=== PATIENT | male | born 1945 | race Caucasian/White ===

== ENCOUNTER 2022-02-23 01:34 | Day surgery (SDC) | payer MEDICARE, OTHER, SELFPAY ==
[2022-02-08 12:01] VITALS: BMI 37.1
--- NOTE | 2022-02-22 20:31 | PM.HPGS ---
History of Present Illness History of Present Illness Consent: Risks, benefits, and alternatives have been discussed and questions answered. Patient agrees to proceed with procedure. Chief complaint: hx of colon polyps Narrative: Eduardo Nielsen is a 76 year old male referred for olon cancer screening. He had 4 polyps removed 4 yrs ago. Review of Systems Review of Systems: All systems reviewed & are unremarkable except as noted in HPI and below PMFSH Past Medical History Medical History Dyslipidemia Essential (primary) hypertension History of aortic stenosis History of renal cell carcinoma Mild intermittent asthma without complication NATO (obstructive sleep apnea) Osteoarthritis of both knees Paroxysmal atrial fibrillation Type 2 diabetes mellitus without complications Vitamin D deficiency Surgical History Surgical History History of aortic valve replacement 09/2017 History of hand surgery right hand 4th trigger finger release History of partial nephrectomy 2014 Right History of right cataract surgery 2016 Hx of foot surgery (~2010) Right foot Social History Social History Smoking packs per day: 2 Smoking cigarettes per day: 40.0 Years smoked: 7 Smoking pack-years: 14.00 Smoking status: Former smoker Smoking end date: 06/17/73 Additional smoking assessment comments: 1 pack per week Alcohol intake: current Drinks per week: 3 Alcohol use details: occasionally Substance use: never Substance use type: does not use Living arrangements: with family Additional living arrangements comments: Gender identity (if verbalized by the patient): Male Sexual Orientation (if Verbalized by the Patient): Straight or Heterosexual Spiritual care concerns: No Meds Home Medications and Allergies Home Medications Medication Instructions Recorded Confirmed Type aspirin 81 mg tablet,delayed 81 mg PO DAILY 04/29/19 02/23/22 History release (Aspir-) metoprolol tartrate 25 mg tablet 25 mg PO BID 04/29/19 02/23/22 History losartan 50 mg tablet 50 mg PO DAILY 04/25/20 02/23/22 History albuterol sulfate 90 mcg/actuation 2 puff inhalation QID PRN wheezing 10/27/20 02/23/22 History aerosol inhaler (Ventolin HFA) metformin 500 mg tablet,extended 500 mg PO DAILY #90 tabs 11/26/20 02/23/22 Rx release 24 hr atorvastatin 20 mg tablet 20 mg PO QHS 05/18/21 02/23/22 History budesonide-formoterol HFA 160 2 puff inhalation BID 05/18/21 02/23/22 History mcg-4.5 mcg/actuation aerosol inhaler (Symbicort) Allergies Allergy/AdvReac Type Severity Reaction Status Date / Time No Known Allergies Allergy Verified 02/23/22 06:59 Exam Resp: Auscultation: clear to auscultation bilaterally Cardio: Rate: regular rate Rhythm: regular rhythm GI: GI Palp: Yes Soft to palpation and No Tenderness to palpation present (GI) Assessment and Plan Assessment and plan (1) Colon cancer screening: Code(s): Z12.11 - Encounter for screening for malignant neoplasm of colon Status: Acute Assessment and Plan: Colonoscopy with possible biopsy or polypectomy or cautery or injection of substances.
[2022-02-23 06:44] VITALS: BP 153/74; PULSE 71; RESP 18; TEMP 36.5; O2SAT 97; BMI 37.6
[2022-02-23] MEDS: LACTATED RINGERS 1,000 ML 150 ML IV CONT (07:15)
[2022-02-23] MEDS: AMPICILLIN 2 GM/NS 100 ML 2 GM/100 ML BAG IVPB (07:17)
[2022-02-23 07:18] LABS: Glucose Point of Care 129 mg/dl (65-105)
[2022-02-23] MEDS: GENTAMICIN 80MG/SOD CHL 50 ML 80 MG/50 ML BAG 100 MG IVPB (07:46)
--- NOTE | 2022-02-23 07:47 | WPDANESEPPF ---
Anes - Initial Pre Proc Eval Procedure: Operation Date: 02/23/22 08:00 Proposed Procedures p Screening Colonoscopy - Moi Giron MD Date/Time: 02/23/22 07:47 Surgeon: Moi Giron MD Pre Op Diagnosis: hx of colon polyps Patient Data Age: 76 Gender: M Height: 1.68 m Weight: 105.8 kg Last Vital Signs Temp 97.7 F 02/23/22 06:44 Pulse 71 02/23/22 06:44 Resp 18 02/23/22 06:44 BP 153/74 H 02/23/22 06:44 Pulse Ox 97 02/23/22 06:44 O2 Del Method Room Air 02/23/22 06:44 Allergies Allergy/AdvReac Type Severity Reaction Status Date / Time No Known Allergies Allergy Verified 02/23/22 06:59 Home Medications Medication Instructions Recorded Confirmed Type aspirin 81 mg tablet,delayed 81 mg PO DAILY 04/29/19 02/23/22 History release (Aspir-) metoprolol tartrate 25 mg tablet 25 mg PO BID 04/29/19 02/23/22 History losartan 50 mg tablet 50 mg PO DAILY 04/25/20 02/23/22 History albuterol sulfate 90 mcg/actuation 2 puff inhalation QID PRN wheezing 10/27/20 02/23/22 History aerosol inhaler (Ventolin HFA) metformin 500 mg tablet,extended 500 mg PO DAILY #90 tabs 11/26/20 02/23/22 Rx release 24 hr atorvastatin 20 mg tablet 20 mg PO QHS 05/18/21 02/23/22 History budesonide-formoterol HFA 160 2 puff inhalation BID 05/18/21 02/23/22 History mcg-4.5 mcg/actuation aerosol inhaler (Symbicort) Laboratory Tests 02/23/22 07:07 POC Capillary Glucose 129 mg/dl H mg/dl (65-105) Patient hx anesthesia problems: none Family hx anesthesia problems: none Results Review: All pre-operative results and documents have been reviewed as part of the pre-operative evaluation. [facility] Past Medical History Medical History Dyslipidemia Essential (primary) hypertension History of aortic stenosis History of renal cell carcinoma Mild intermittent asthma without complication NATO (obstructive sleep apnea) Osteoarthritis of both knees Paroxysmal atrial fibrillation Type 2 diabetes mellitus without complications Vitamin D deficiency Surgical History Surgical History History of aortic valve replacement 09/2017 History of hand surgery right hand 4th trigger finger release History of partial nephrectomy 2014 Right History of right cataract surgery 2016 Hx of foot surgery (~2010) Right foot Social History Social History Smoking packs per day: 2 Smoking cigarettes per day: 40.0 Years smoked: 7 Smoking pack-years: 14.00 Smoking status: Former smoker Smoking end date: 06/17/73 Additional smoking assessment comments: 1 pack per week Alcohol intake: current Drinks per week: 3 Alcohol use details: occasionally Substance use: never Substance use type: does not use Living arrangements: with family Additional living arrangements comments: Gender identity (if verbalized by the patient): Male Sexual Orientation (if Verbalized by the Patient): Straight or Heterosexual Spiritual care concerns: No Anes - Eval Final PreProcedure Day of Procedure 02/23/22 07:47 Patient weight: obese Heart: regular rate and rhythm Lungs: clear to auscultation Airway: Mallampati scale class III Neurological: alert and oriented Last oral intake: >/= 8 hours ASA classification: III Emergent: no Anesthetic plan: proceed Anesthesia type and monitoring: general GIVS and standard monitoring Results Review: All pre-operative results and documents have been reviewed as part of the pre-operative evaluation. Informed Consent: The patient's anesthetic plan and its attendant risks and benefits were discussed with the patient/family/POA. Questions were solicited and answers provided to the satisfaction of the patient/family/POA.
[2022-02-23] MEDS: SIMETHICONE ORAL SUSPENSION 20 MG/0.3 ML 30 ML BOTTLE 0.6 ML IRRIGATION (08:13)
[2022-02-23 08:25] VITALS: BP 117/69; PULSE 61; RESP 20
[2022-02-23 08:35] VITALS: BP 152/80; PULSE 57; RESP 20
[2022-02-23 08:45] VITALS: BP 145/89; PULSE 59; RESP 18
== END 2022-02-23 08:50 | disposition home or self-care (01) ==
PROVIDERS: PCP Family Medicine; Visit Provider Internal Medicine Gastroenterology
PROC: 0DJD8ZZ Inspection of Lower Intestinal Tract, Via Natural or Artificial Opening Endoscopic (ICD-10-PCS; CPT 45378; principal; 2022-02-23 08:00)
DX: Z12.11 Encounter for screening for malignant neoplasm of colon (principal); Z86.010 Personal history of colon polyps; K57.30 Diverticulosis of large intestine without perforation or abscess without bleeding; E78.5 Hyperlipidemia, unspecified; I10 Essential (primary) hypertension; I35.0 Nonrheumatic aortic (valve) stenosis; J45.20 Mild intermittent asthma, uncomplicated; I48.0 Paroxysmal atrial fibrillation; E11.9 Type 2 diabetes mellitus without complications; E55.9 Vitamin D deficiency, unspecified; M17.0 Bilateral primary osteoarthritis of knee; G47.33 Obstructive sleep apnea (adult) (pediatric); Z95.2 Presence of prosthetic heart valve; Z85.528 Personal history of other malignant neoplasm of kidney; Z79.82 Long term (current) use of aspirin; Z90.5 Acquired absence of kidney; Z87.891 Personal history of nicotine dependence
CPT/HCPCS: G0105; 82948; J0290; J1580; J2704; J7120

== ENCOUNTER 2022-05-30 10:52 | Outpatient (CLI) | payer MEDICARE, OTHER, SELFPAY ==
[2022-05-30 19:35] LABS: Hemoglobin A1C 6.5 % (<5.7)
[2022-05-30 19:40] LABS: Basophils Percent Auto 0.5 % (0.2-1.2); Eosinophils Absolute Auto 0.2 K/mm3 (0-0.3); Eosinophils Percent Auto 1.9 % (0-4.4); Hematocrit 45.7 % (42.0-52.0); Hemoglobin 14.4 g/dL (14.0-18.0); Immature Granulocyte Absolute 0.02 K/mm3 (0.00-0.031); Immature Granulocyte Percent A 0.3 % (0-0.5); Lymphocytes Absolute Auto 1.99 K/mm3 (0.9-3.2); Lymphocytes Percent Auto 25.5 % (18.3-44.2); Mean Corpuscular HGB Conc 31.5 g/dl (32-36); Mean Corpuscular Hemoglobin 26.6 pg (26-34); Mean Corpuscular Volume 84.3 fl (80-100); Mean Platelet Volume 12.6 fl (7.4-10.4); Monocytes Absolute Auto 0.7 K/mm3 (0.1-0.6); Monocytes Percent Auto 8.6 % (2.6-8.5); Neutrophils Absolute Auto 4.9 K/mm3 (1.3-6.7); Neutrophils Percent Auto 63.2 % (45.5-73.1); Platelet Count Result 157 k/mm3 (150-375); Red Blood Count 5.42 M/mm3 (4.6-6.20); Red Cell Distribution Width 13.6 % (11.5-14.5); White Blood Count 7.8 K/mm3 (4.5-10.0)
[2022-05-30 19:53] LABS: Alanine Aminotransferase 28 U/L (6-50); Albumin Level 4.3 g/dL (3.5-5.1); Alkaline Phosphatase 70 U/L (38-126); Anion Gap 7 mmol/L (8-16); Aspartate Amino Transferase 31 U/L (17-59); Bilirubin,Total 0.8 mg/dL (0.2-1.3); Blood Urea Nitrogen 21 mg/dL (9-20); Calcium 8.5 mg/dL (8.4-10.2); Carbon Dioxide 28 mmol/L (22-30); Chloride 106 mmol/L (98-107); Cholesterol 136 mg/dL (0-200); Estimated Glomerular Filt Rate > 60; Glucose 120 mg/dL (65-110); HDL Direct 45 mg/dL; Potassium 4.1 mmol/L (3.4-5.0); Sodium 141 mmol/L (137-145); Triglycerides 114 mg/dL (<150)
[2022-05-30 20:04] LABS: LDL Cholesterol Direct 57 mg/dL
[2022-05-30 20:07] LABS: Vitamin D 25 Hydroxy 60.1 ng/mL
[2022-05-30 20:15] LABS: Prostate Specific Antigen 2.2 ng/mL (< OR = 4.0)
[2022-05-30 20:40] LABS: Creatinine Urine 192.2 mg/dL
[2022-05-30 20:45] LABS: MALB Creatinine Ratio 5.9 mg/g (0-30); Microalbumin Urine Random 11.3 mg/L (0-16.7)
== END 2022-05-30 10:53 | disposition home or self-care (01) ==
LOC: ANHGOSHLAB 10:54
PROVIDERS: PCP Family Medicine; Visit Provider Family Medicine
DX: E11.9 Type 2 diabetes mellitus without complications (principal); I10 Essential (primary) hypertension; E55.9 Vitamin D deficiency, unspecified; Z12.5 Encounter for screening for malignant neoplasm of prostate; E53.8 Deficiency of other specified B group vitamins; E78.5 Hyperlipidemia, unspecified
CPT/HCPCS: 36415; 80053; 80061; 82043; 82306; 82607; 83036; 84153; 84443; 85025; G0103

== ENCOUNTER 2022-11-28 08:00 | Outpatient (NON) | payer MEDICARE, OTHER, SELFPAY ==
[2022-11-29 18:29] LABS: Alanine Aminotransferase 35 U/L (6-50); Albumin Level 4.4 g/dL (3.5-5.1); Alkaline Phosphatase 56 U/L (38-126); Anion Gap 6 mmol/L (8-16); Aspartate Amino Transferase 39 U/L (17-59); Bilirubin,Total 0.9 mg/dL (0.2-1.3); Blood Urea Nitrogen 27 mg/dL (9-20); Calcium 8.3 mg/dL (8.4-10.2); Carbon Dioxide 30 mmol/L (22-30); Chloride 103 mmol/L (98-107); Estimated Glomerular Filt Rate 59; Glucose 136 mg/dL (65-110); Sodium 139 mmol/L (137-145)
== END 2022-11-28 08:01 | disposition home or self-care (01) ==
LOC: ANHLAB 11-29 15:44
PROVIDERS: PCP Family Medicine; Visit Provider Family Medicine
DX: E11.9 Type 2 diabetes mellitus without complications (principal); I10 Essential (primary) hypertension
CPT/HCPCS: 36415; 80053; 83036

== ENCOUNTER 2023-06-04 10:27 | Outpatient (CLI) | payer MEDICARE, OTHER, SELFPAY ==
[2023-06-04 11:39] LABS: Appearance Urine Clear (Clear); Bilirubin Urine Negative (Negative); Blood Urine Negative (Negative); Color Urine Yellow (Yellow); Glucose Urine UA Negative (Negative); Ketones Urine Negative (Negative); Leukocyte Esterase Ur Negative LEU/UL (Negative); Nitrate Urine Negative (Negative); Protein Urine Negative (Negative); Specific Grav Ur 1.021 (1.001-1.035)
[2023-06-04 11:46] LABS: Basophils Percent Auto 0.6 % (0.2-1.2); Eosinophils Absolute Auto 0.1 K/mm3 (0-0.3); Eosinophils Percent Auto 2.1 % (0-4.4); Hematocrit 46.3 % (42.0-52.0); Hemoglobin 14.6 g/dL (14.0-18.0); Immature Granulocyte Absolute 0.03 K/mm3 (0.00-0.031); Immature Granulocyte Percent A 0.4 % (0-0.5); Lymphocytes Absolute Auto 2.07 K/mm3 (0.9-3.2); Lymphocytes Percent Auto 30.7 % (18.3-44.2); Mean Corpuscular HGB Conc 31.5 g/dl (32-36); Mean Corpuscular Hemoglobin 26.9 pg (26-34); Mean Corpuscular Volume 85.3 fl (80-100); Mean Platelet Volume 12.3 fl (7.4-10.4); Monocytes Absolute Auto 0.6 K/mm3 (0.1-0.6); Monocytes Percent Auto 9.3 % (2.6-8.5); Neutrophils Absolute Auto 3.8 K/mm3 (1.3-6.7); Neutrophils Percent Auto 56.9 % (45.5-73.1); Platelet Count Result 155 k/mm3 (150-375); Red Blood Count 5.43 M/mm3 (4.6-6.20); Red Cell Distribution Width 13.4 % (11.5-14.5); White Blood Count 6.7 K/mm3 (4.5-10.0)
[2023-06-04 11:48] LABS: Alanine Aminotransferase 27 U/L (6-50); Albumin Level 4.1 g/dL (3.5-5.1); Alkaline Phosphatase 68 U/L (38-126); Anion Gap 6 mmol/L (8-16); Aspartate Amino Transferase 34 U/L (17-59); Bilirubin,Total 0.8 mg/dL (0.2-1.3); Blood Urea Nitrogen 21 mg/dL (9-20); Calcium 8.8 mg/dL (8.4-10.2); Carbon Dioxide 28 mmol/L (22-30); Chloride 105 mmol/L (98-107); Cholesterol 151 mg/dL (0-200); Estimated Glomerular Filt Rate > 60; Glucose 144 mg/dL (65-110); HDL Direct 43 mg/dL; Potassium 4.3 mmol/L (3.4-5.0); Sodium 139 mmol/L (137-145); Triglycerides 116 mg/dL (<150)
[2023-06-04 11:50] LABS: Add Urine Microscopic? NO
[2023-06-04 11:59] LABS: LDL Cholesterol Direct 75 mg/dL
[2023-06-04 12:03] LABS: Vitamin D 25 Hydroxy 53.2 ng/mL
[2023-06-04 12:08] LABS: Creatinine Urine 123.4 mg/dL
[2023-06-04 12:13] LABS: Microalbumin Urine Random 17.3 mg/L (0-16.7)
[2023-06-04 12:59] LABS: Hemoglobin A1C 7.5 % (<5.7)
== END 2023-06-04 10:28 | disposition home or self-care (01) ==
LOC: ANHGOSHLAB 10:29
PROVIDERS: PCP Family Medicine; Visit Provider Family Medicine
DX: Z12.5 Encounter for screening for malignant neoplasm of prostate (principal); E78.5 Hyperlipidemia, unspecified; I10 Essential (primary) hypertension; E11.9 Type 2 diabetes mellitus without complications; E53.8 Deficiency of other specified B group vitamins; E55.9 Vitamin D deficiency, unspecified; I48.0 Paroxysmal atrial fibrillation; Z85.528 Personal history of other malignant neoplasm of kidney
CPT/HCPCS: 36415; 80053; 80061; 81003; 82043; 82306; 82607; 83036; 84153; 84443; 85025; G0103

== ENCOUNTER 2023-06-26 07:39 | Outpatient (CLI) | payer MEDICARE, OTHER, SELFPAY ==
--- NOTE | ~2023-06-26 | US_ITS ---
Ultrasound of the Abdominal Aorta INDICATION: Screening for cardiovascular disorder TECHNIQUE: Grayscale, color Doppler, and pulsed Doppler images of the aorta and common iliac arteries were obtained. COMPARISON: None. FINDINGS: Maximum vascular dimensions are as follows: Proximal aorta: 2.8 cm Mid aorta: 2.4 cm Distal aorta: 2.0 cm Right common iliac artery: 1.4 cm Left common iliac artery: 1.3 cm There is no evidence of abdominal aortic aneurysm. IMPRESSION: No evidence for aortic aneurysm. Reviewed, dictated and finalized at location M. [employer]
== END 2023-06-26 07:40 | disposition home or self-care (01) ==
PROVIDERS: PCP Family Medicine; Visit Provider Family Medicine
DX: Z13.6 Encounter for screening for cardiovascular disorders (principal); Z87.891 Personal history of nicotine dependence
CPT/HCPCS: 76706

== ENCOUNTER 2023-10-11 11:08 | Emergency (ER) | payer MEDICARE, OTHER, SELFPAY ==
--- NOTE | ~2023-10-11 | XR_ITS ---
XR hand LT min 3V 10/11/2023 12:09 Indication: Pain and swelling left hand Procedure: 3 views left hand Comparison: 2 views left second finger dated 03/31/2014 Findings: There is moderate polyarticular osteoarthritis. There is a nondisplaced extra-articular fra cture proximal aspect of the fifth proximal phalanx. No foreign bodies. No focal soft tissue abnormal ity. Impression: 1: Nondisplaced extra-articular fracture base of the left fifth proximal phalanx. Reviewed, dictated and finalized at location B. Impression: 1: Nondisplaced extra-articular fracture base of the left fifth proximal phalan x.
[2023-10-11 11:26] VITALS: BP 132/65; PULSE 52; RESP 16; TEMP 36.6; O2SAT 100
--- NOTE | 2023-10-11 12:05 | ED.UPPEXIN ---
HPI - Extremity Injury (Upper) General Chief Complaint: Extremity Injury, Upper Stated Complaint: Left Hand Pain Time Seen by Provider: 10/11/23 12:06 Source: patient Mode of arrival: ambulatory Limitations: no limitations History of Present Illness HPI narrative: 78-year-old male presents with complaint of pain to left hand with swelling for 1 week. Pain to left little finger. Was hit with baseball well appearing. Has been resting, taking Tylenol with no improvement pain and swelling. Range of motion decreased to left little finger due to pain, distal neurovascularly intact. All systems reviewed and negative except as noted above. Related Data Home Medications Medication Instructions Recorded Confirmed aspirin 81 mg tablet,delayed 81 mg PO DAILY 04/29/19 10/11/23 release (Aspir-) albuterol sulfate 90 mcg/actuation 2 puff inhalation QID PRN wheezing 10/27/20 10/11/23 aerosol inhaler (Ventolin HFA) atorvastatin 20 mg tablet 20 mg PO QHS 05/18/21 10/11/23 budesonide-formoterol HFA 160 2 puff inhalation BID 05/18/21 10/11/23 mcg-4.5 mcg/actuation aerosol inhaler (Symbicort) cholecalciferol (vitamin D3) 125 125 mcg PO DAILY 05/30/22 10/11/23 mcg (5,000 unit) capsule metoprolol tartrate 25 mg tablet 12.5 mg PO BID 05/30/22 10/11/23 Allergies Allergy/AdvReac Type Severity Reaction Status Date / Time No Known Allergies Allergy Verified 10/11/23 11:18 Review of Systems Review of Systems: CONSTITUTIONAL: Denies fever, chills, or sweats. EYES: Denies visual changes, redness, or discharge. ENT: Denies rhinorrhea, congestion, sore throat, or otalgia. CARDIOVASCULAR: Denies chest pain, palpitations, or edema. RESPIRATORY: Denies cough or dyspnea. GASTROINTESTINAL: Denies abdominal pain, nausea, vomiting, or diarrhea. GENITOURINARY: Denies dysuria or hematuria. SKIN: Denies rash or itching. MUSCULOSKELETAL: Denies back pain . Reports pain and swelling to left little finger. NEUROLOGIC: Denies headache, numbness, or weakness. PSYCHIATRIC: Denies anxiety or depression. All other systems reviewed are negative, except as documented in HPI. [facility] Past Medical History Medical History Dyslipidemia Essential (primary) hypertension History of aortic stenosis History of renal cell carcinoma (~2013) Mild intermittent asthma without complication NATO (obstructive sleep apnea) Osteoarthritis of both knees Paroxysmal atrial fibrillation Type 2 diabetes mellitus without complications Vitamin D deficiency Surgical History Surgical History History of aortic valve replacement 09/2017 History of hand surgery right hand 4th trigger finger release History of partial nephrectomy 2014 Right History of right cataract surgery 2016 Hx of foot surgery (~2010) Right foot Social History Social History Smoking packs per day: 2 Smoking cigarettes per day: 40.0 Years smoked: 7 Smoking pack-years: 14.00 Smoking status: Former smoker (< 10 pack years) Smoking end date: 06/17/74 Additional smoking assessment comments: 1 pack per week Alcohol intake: current Drinks per week: 3 Alcohol use details: occasionally Substance use: never Substance use type: does not use Lack of Transportation: No Lack of Food: Never True Current Housing: I Have Housing Concerned About Future Housing: No Difficulty Paying Gas/Electric Bills: No Difficulty Paying for Meds: No Currently Unemployed: No Education: Associate Degree Difficulty w/ Childcare or Family Care: No Living arrangements: with family Additional living arrangements comments: Occupation/Education: occupation Gender identity (if verbalized by the patient): Male Sexual Orientation (if Verbalized by the Patient): Straight or Heterosexual Spiritual care c
== END 2023-10-11 12:50 | disposition home or self-care (01) ==
PROVIDERS: Emergency Provider Nurse Practitioner Family; PCP Family Medicine
DX: S62.647A Nondisplaced fracture of proximal phalanx of left little finger, initial encounter for closed fracture (principal); W21.03XA Struck by baseball, initial encounter; E78.5 Hyperlipidemia, unspecified; I10 Essential (primary) hypertension; I35.0 Nonrheumatic aortic (valve) stenosis; J45.909 Unspecified asthma, uncomplicated; M17.0 Bilateral primary osteoarthritis of knee; I48.0 Paroxysmal atrial fibrillation; E11.9 Type 2 diabetes mellitus without complications; E55.9 Vitamin D deficiency, unspecified; Z95.2 Presence of prosthetic heart valve; Z85.528 Personal history of other malignant neoplasm of kidney; Z90.5 Acquired absence of kidney; Z79.82 Long term (current) use of aspirin
CPT/HCPCS: 29130; 73130; 99214; G0463

== ENCOUNTER 2024-02-20 09:42 | Outpatient (CLI) | payer MEDICARE, OTHER, SELFPAY ==
--- NOTE | ~2024-02-20 | XR_ITS ---
Lumbosacral Spine: AP and lateral views Clinical History: Pain Findings: The normal lordotic curve is maintained. The vertebral bodies and posterior elements are i ntact. There are mild degenerative disc changes. There is advanced facet arthropathy throughout the l umbar spine. The sacroiliac joints are normally outlined. Impression: Extensive, advanced facet arthropathy. Reviewed, dictated and finalized at location . Impression: Extensive, advanced facet arthropathy.
== END 2024-02-20 09:43 | disposition home or self-care (01) ==
PROVIDERS: PCP Family Medicine; Visit Provider Family Medicine
DX: M47.896 Other spondylosis, lumbar region (principal)
CPT/HCPCS: 72100

== ENCOUNTER 2024-04-06 15:36 | Emergency (ER) | payer MEDICARE, OTHER, SELFPAY ==
[2024-04-06 15:53] VITALS: BP 128/64; PULSE 61; RESP 18; TEMP 36.7; O2SAT 99
--- NOTE | 2024-04-06 16:40 | ED.UPPEXIN ---
HPI - Extremity Injury (Upper) General Chief Complaint: Wound/Laceration Stated Complaint: Left Hand Fingers Irritation Time Seen by Provider: 04/06/24 16:40 Source: patient and RN notes reviewed Mode of arrival: ambulatory Limitations: no limitations History of Present Illness HPI narrative: 78-year-old male presents with concern for injury to his left hand. 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 He reports a cut to the dorsal aspect of the 2nd digit and the palmar aspect of the 3rd digit. Reports he bandage the wounds in finished his job. Reports this happened about 4 hours ago. He is not up-to-date on his tetanus shot complaint: injury to: left and hand Related Data Home Medications Medication Instructions Recorded Confirmed aspirin 81 mg tablet,delayed 81 mg PO DAILY 04/29/19 04/06/24 release (Aspir-) albuterol sulfate 90 mcg/actuation 2 puff inhalation QID PRN wheezing 10/27/20 04/06/24 aerosol inhaler (Ventolin HFA) budesonide-formoterol HFA 160 2 puff inhalation BID 05/18/21 04/06/24 mcg-4.5 mcg/actuation aerosol inhaler (Symbicort) metoprolol tartrate 25 mg tablet 12.5 mg PO BID 05/30/22 04/06/24 atorvastatin 40 mg tablet 20 mg PO QHS 02/20/24 04/06/24 cholecalciferol (vitamin D3) 50 100 mcg PO DAILY 02/20/24 04/06/24 mcg (2,000 unit) tablet loratadine 10 mg tablet (Claritin) 10 mg PO DAILY PRN Allergy Symptoms 02/20/24 04/06/24 metformin 500 mg tablet,extended 500 mg PO BID 02/20/24 04/06/24 release 24 hr Allergies Allergy/AdvReac Type Severity Reaction Status Date / Time No Known Allergies Allergy Verified 02/20/24 09:02 Review of Systems Review of Systems: CONSTITUTIONAL: Denies malaise, chills, sweats, or fever. SKIN: Reports lacerations to the 2nd and 3rd digits the left hand MUSCULOSKELETAL: Denies muscle skeletal pain NEUROLOGIC: Denies numbness, weakness All systems reviewed & are unremarkable except as noted in HPI and below PMFSH Past Medical History Medical History Dyslipidemia Environmental allergies Essential (primary) hypertension Fracture of proximal phalanx of left little finger (~09/2023) History of aortic stenosis History of renal cell carcinoma (~2013) Mild intermittent asthma without complication NATO (obstructive sleep apnea) Osteoarthritis of both knees Paroxysmal atrial fibrillation Type 2 diabetes mellitus without complications Vitamin D deficiency Surgical History Surgical History History of aortic valve replacement 09/2017 History of hand surgery right hand 4th trigger finger release History of partial nephrectomy 2014 Right History of right cataract surgery 2016 Hx of foot surgery (~2010) Right foot Social History Social History Smoking packs per day: 2 Smoking cigarettes per day: 40.0 Years smoked: 7 Smoking pack-years: 14.00 Smoking status: Former smoker (< 10 pack years) Smoking end date: 06/17/74 Additional smoking assessment comments: 1 pack per week Alcohol intake: current Drinks per week: 3 Alcohol use details: occasionally Substance use: never Substance use type: does not use Lack of Transportation: No Lack of Food: Never True Current Housing: I Have Housing Concerned About Future Housing: No Difficulty Paying Gas/Electric Bills: No Difficulty Paying for Meds: No Currently Unemployed: No Education: Associate Degree Difficulty w/ Childcare or Family Care: No Living arrangements: with family Additional living arrangements comments: Occupation/Education: occupation Gender identity (if verbalized by the patient): Male Sexual Orientation (if Verbalized by the Patient): Straight or Heterosexual Spiritual care concerns: No Comments At time of signature, agree with nursing past
[2024-04-06] MEDS: LIDOCAINE HCL 1% LOCAL INJ 2 ML AMPUL INFILTRATE (16:56)
[2024-04-06] MEDS: TETANUS,DIPHTHERIA,AC PERTUSSIS ADULT (0.5 ML) BOOSTRIX IM (16:57)
== END 2024-04-06 17:33 | disposition home or self-care (01) ==
PROVIDERS: Emergency Provider Nurse Practitioner; PCP Family Medicine
DX: S61.211A Laceration without foreign body of left index finger without damage to nail, initial encounter (principal); S61.213A Laceration without foreign body of left middle finger without damage to nail, initial encounter; W31.89XA Contact with other specified machinery, initial encounter; Z23 Encounter for immunization; Z87.891 Personal history of nicotine dependence; E78.5 Hyperlipidemia, unspecified; I10 Essential (primary) hypertension; E11.9 Type 2 diabetes mellitus without complications; Z79.84 Long term (current) use of oral hypoglycemic drugs; I48.0 Paroxysmal atrial fibrillation; E55.9 Vitamin D deficiency, unspecified; M17.0 Bilateral primary osteoarthritis of knee; Z95.2 Presence of prosthetic heart valve; Z85.528 Personal history of other malignant neoplasm of kidney; Z90.5 Acquired absence of kidney; Z79.82 Long term (current) use of aspirin
CPT/HCPCS: 12001; 90471; 90715; 99212; G0463; J2003

== ENCOUNTER 2024-04-20 11:57 | Emergency (ER) | payer MEDICARE, OTHER, SELFPAY ==
[2024-04-20 12:07] VITALS: BP 145/46; PULSE 95; RESP 19; TEMP 36.6; O2SAT 100
--- NOTE | 2024-04-20 12:12 | ED_ITS ---
HPI - Wound/Laceration General Chief Complaint: Wound/Laceration Stated Complaint: Stitches Removal Time Seen by Provider: 04/20/24 12:14 Source: patient, RN notes reviewed and old records reviewed Mode of arrival: ambulatory Limitations: no limitations History of Present Illness HPI narrative: Patient presents requesting suture removal Related Data Home Medications Medication Instructions Recorded Confirmed aspirin 81 mg tablet,delayed 81 mg PO DAILY 04/29/19 04/20/24 release (Aspir-) albuterol sulfate 90 mcg/actuation 2 puff inhalation QID PRN wheezing 10/27/20 04/20/24 aerosol inhaler (Ventolin HFA) budesonide-formoterol HFA 160 2 puff inhalation BID 05/18/21 04/20/24 mcg-4.5 mcg/actuation aerosol inhaler (Symbicort) metoprolol tartrate 25 mg tablet 12.5 mg PO BID 05/30/22 04/20/24 atorvastatin 40 mg tablet 20 mg PO QHS 02/20/24 04/20/24 cholecalciferol (vitamin D3) 50 100 mcg PO DAILY 02/20/24 04/20/24 mcg (2,000 unit) tablet loratadine 10 mg tablet (Claritin) 10 mg PO DAILY PRN Allergy Symptoms 02/20/24 04/20/24 metformin 500 mg tablet,extended 500 mg PO BID 02/20/24 04/20/24 release 24 hr Allergies Allergy/AdvReac Type Severity Reaction Status Date / Time No Known Allergies Allergy Verified 04/20/24 11:59 Review of Systems Review of Systems: All systems reviewed & are unremarkable except as noted in HPI and below Constitutional: Constitutional: Reports no additional constitutional complaints ENT: Reports system reviewed and no additional complaints, except as documented Cardiovascular: Cardiovascular: Reports no additional cardiovascular complaints Respiratory: Respiratory: Reports no additional respiratory complaints Gastrointestinal: Gastrointestinal: Reports no additional gastrointestinal complaints Integumentary/Breasts: Skin/Breast: Reports system reviewed and no additional complaints, except as docu and Reports as per HPI PMFSH Past Medical History Medical History Dyslipidemia Environmental allergies Essential (primary) hypertension Fracture of proximal phalanx of left little finger (~09/2023) History of aortic stenosis History of renal cell carcinoma (~2013) Mild intermittent asthma without complication [employer] (obstructive sleep apnea) Osteoarthritis of both knees Paroxysmal atrial fibrillation Type 2 diabetes mellitus without complications Vitamin D deficiency Surgical History Surgical History History of aortic valve replacement 09/2017 History of hand surgery right hand 4th trigger finger release History of partial nephrectomy 2013 Right History of right cataract surgery 2016 Hx of foot surgery (~2010) Right foot Social History Social History Smoking packs per day: 2 Smoking cigarettes per day: 40.0 Years smoked: 7 Smoking pack-years: 14.00 Smoking status: Former smoker (< 10 pack years) Smoking end date: 06/17/74 Additional smoking assessment comments: 1 pack per week Alcohol intake: current Drinks per week: 3 Alcohol use details: occasionally Substance use: never Substance use type: does not use Lack of Transportation: No Lack of Food: Never True Current Housing: I Have Housing Concerned About Future Housing: No Difficulty Paying Gas/Electric Bills: No Difficulty Paying for Meds: No Currently Unemployed: No Education: Associate Degree Difficulty w/ Childcare or Family Care: No Living arrangements: with family Additional living arrangements comments: Occupation/Education: occupation Gender identity (if verbalized by the patient): Male Sexual Orientation (if Verbalized by the Patient): Straight or Heterosexual Spiritual care concerns: No Comments At the time of my signature, I reviewed and agree with the nursing past medical, surgical, social, and family history. There is no relevant family history pertinent to the patient complaint. Exam Const: General: cooperative, no acute distress, alert and awake Orientation/consciousness: oriented to person, oriented to place and oriented to time HENMT: Head: normal to inspection Resp: Effort & Inspection: normal respiratory effort and able to speak in complete sentences Auscultation: clear to auscultation bilaterally, no crackles, no rales, no rhonchi and no wheezes Cardio: Palpation: normal PMI Rate: regular rate Rhythm: regular rhythm Heart sounds: S1 normal heart sound present and S2 normal heart sound present Skin: Other: Nearly healed laceration with no sign of infection to left 3rd digit, [address] which were easily removed without difficulty Neuro: General: oriented to person, oriented to place and oriented to time Cranial nerves: Yes CN's II-XII intact bilaterally Psych: Appearance: grossly normal Thought process: Normal thought process present Insight: Good insight present (Psych) Judgement: Good judgement present (Psych) Course Course Level of Care: Express Care Visit Vital Signs Vital signs: Vital Signs Temperature 98 F 04/20/24 12:07 Pulse Rate 95 04/20/24 12:07 Respiratory Rate 19 04/20/24 12:07 Blood Pressure 145/46 H 04/20/24 12:07 Pulse Oximetry 100 04/20/24 12:07 Oxygen Delivery Room Air 04/20/24 12:07 Temperature 98 F 04/20/24 12:07 Pulse Rate 95 04/20/24 12:07 Respiratory Rate 19 04/20/24 12:07 Blood Pressure 145/46 H 04/20/24 12:07 Pulse Oximetry 100 04/20/24 12:07 Oxygen Delivery Room Air 04/20/24 12:07 Reviewed Procedures Other Procedure Procedure 1: Other Procedure: Suture removal, 2 sutures removed easily. No sign of infection MDM - Wound/Laceration MDM Narrative Medical decision making narrative: Patient presents for suture removal, sutures removed without incident. No other complaints. Discharge instructions reviewed with patient, as well as provided in writing per nursing staff. The instructions also include specific and strict return/GO TO THE ER as well as f/u information. All questions have been answered, and the patient deny any further questions with discharge and discharge plan. Some parts of this dictation were generated by voice recognition software and may contain typographical and/or grammatical inaccuracies. Differential Diagnosis Differential diagnosis: Likely laceration and abrasion Medical Records Attestation: I reviewed the patient's medical records. Discharge Plan Discharge Clinical Impression: Laceration, Encounter for removal of sutures Patient Disposition: Home, Self-Care Condition: Stable Instructions: Antibiotic Form Additional Instructions: Keep affected area clean and dry until fully healed. Emergency department for any new or worse symptoms Patient Language: Slovenian Prescriptions: No Action albuterol sulfate [Ventolin HFA] 90 mcg/actuation HFA aerosol inhaler 2 puff inhalation QID PRN (Reason: wheezing) budesonide-formoterol [Symbicort] 160-4.5 mcg/actuation HFA aerosol inhaler 2 puff inhalation BID aspirin [Aspir-81] 81 mg tablet,delayed release (DR/EC) 81 mg PO DAILY metoprolol tartrate 25 mg tablet 12.5 mg PO BID losartan-hydrochlorothiazide 50-12.5 mg tablet 1 tablet PO DAILY Qty: 90 0RF cholecalciferol (vitamin D3) 50 mcg (2,000 unit) tablet 100 mcg PO DAILY metformin 500 mg tablet extended release 24 hr 500 mg PO BID atorvastatin 40 mg tablet 20 mg PO QHS loratadine [Claritin] 10 mg tablet 10 mg PO DAILY PRN (Reason: Allergy Symptoms) Follow-up/Referrals: Karla Stephens MD [Primary Care Provider] - Time of Disposition: 12:20
== END 2024-04-20 12:25 | disposition home or self-care (01) ==
PROVIDERS: Emergency Provider Nurse Practitioner Family; PCP Family Medicine
DX: S61.213D Laceration without foreign body of left middle finger without damage to nail, subsequent encounter (principal); X58.XXXD Exposure to other specified factors, subsequent encounter; E78.5 Hyperlipidemia, unspecified; I10 Essential (primary) hypertension; J45.909 Unspecified asthma, uncomplicated; M17.0 Bilateral primary osteoarthritis of knee; I48.91 Unspecified atrial fibrillation; E11.9 Type 2 diabetes mellitus without complications; Z79.84 Long term (current) use of oral hypoglycemic drugs; E55.9 Vitamin D deficiency, unspecified; Z85.528 Personal history of other malignant neoplasm of kidney; Z90.5 Acquired absence of kidney; Z87.891 Personal history of nicotine dependence; Z95.2 Presence of prosthetic heart valve; Z79.82 Long term (current) use of aspirin
CPT/HCPCS: 99211; G0463

== ENCOUNTER 2024-05-12 11:00 | Outpatient (RCR) | payer MEDICARE, OTHER, SELFPAY ==
--- NOTE | 2024-04-06 08:58 | OPREHPOC ---
Outpatient Therapy Plan of Care This is a Multidisciplinary Plan of Care that may contain components documented by all disciplines (PT, OT, and ST.) PT Problem 1 PT Problem #1 Knowledge Deficit PT Goal 1 Goal / Goal Update *indep with HEP * correct body mechanics with supine/sit transfer and lifting from floor Target Visit 8 PT Problem 2 PT Problem #2 Pain PT Goal 1 Goal / Goal Update 1* pain rating at worst of 5/10 Target Visit 8 PT Problem 3 PT Problem #3 Impaired Flexibility PT Goal 1 Goal / Goal Update improve flexibility of hips and trunk, to decrease strain and pull on spine/hips: hamstring length with supine SLR 1* R 65' 2* L 65' piriformis length with supine leg cross midline of body 3* R 4* L anterior hip/quad length with prone knee flexion 5* R 110' 6* L 110' Target Visit 8 PT Problem 4 PT Problem #4 Impaired Strength PT Goal 1 Goal / Goal Update *increase strength of R and L hips and trunk to 4+ /5, to improve support and stability to spine Target Visit 8
--- NOTE | 2024-04-06 08:58 | PTOPEVAL1 ---
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 He reports a history of intermittent back pain, without radicular pain. Self assessment with Oswestry rating of 8% limitation in activity level Lumbar xray reports advanced facet arthropathy. 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 With the evaluation: standing trunk flexion and rotation to L increase pain; he has tightness over both R and L: hamstrings, piriformis and anterior hip/quad muscles, with weakness of trunk. Skilled PT services are indicated for therapeutic exercises to increase trunk and hip strength and flexibility, with heat/ice or manual therapy for pain control and education for body mechanics and HEP. Plan of Care Interventions Hot Pack/Cold Pack,Manual Therapy,Mechanical Traction,Neuro Re-education,Patient Education,Therapeutic Activities,Therapeutic Exercise Other Interventions taping PT Services Indicated Yes Treatment Frequency and 1-2x/wk for 8 visits Duration These treatments will address the objective and functional deficits as defined above. The patient will be advanced safely and appropriately in order for the patient to progress towards his/her prior level of function. Additional exercises will be introduced and as well as a comprehensive home exercise program upon discharge, if needed, ?to ensure carryover of functional gains achieved in the clinic. This treatment plan has been reviewed and agreement upon by the patient.
--- NOTE | 2024-04-06 09:37 | PCPTNOTE ---
pt was 10 minutes late for evaluation appt.
--- NOTE | 2024-04-27 08:35 | PCPTNOTE ---
Patient rescheduled his appointment.
--- NOTE | 2024-05-04 08:48 | PCPTNOTE ---
pt called and canceled today's reeval due to not able to make it. rescheduled the appt.
--- NOTE | 2024-05-12 11:45 | PTOPDC ---
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 Compared to the initial evaluation: pain range from 0-9/10 to 0-3/10; self assessment Oswestry rating from 8% to 14% limitation in activity level increase flexibility of R and L hamstrings and piriformis, continues to have tightness in R and L anterior hip/quad muscles; increase hip and trunk strength; increased awareness of body mechanics and posture; education completed for HEP and body mechanics. The goals were achieved, except anterior hip/quad length. Discharge PT services. He is to continue with his HEP and monitor posture. Plan of Care PT Services Indicated No
== END 2024-05-12 13:24 | disposition home or self-care (01) ==
LOC: ANHPT 11:00
PROVIDERS: PCP Family Medicine; Visit Provider Family Medicine
DX: M54.50 Low back pain, unspecified (principal)
CPT/HCPCS: 97110; 97140; 97161; 97530

== ENCOUNTER 2024-07-08 08:49 | Outpatient (CLI) | payer MEDICARE, OTHER, SELFPAY ==
[2024-07-08 19:32] LABS: Add Urine Microscopic? NO; Appearance Urine Clear (Clear); Basophils Absolute Auto 0.1 K/mm3 (0.0-0.1); Basophils Percent Auto 0.7 % (0.2-1.2); Bilirubin Urine Negative (Negative); Blood Urine Negative (Negative); Color Urine Yellow (Yellow); Eosinophils Absolute Auto 0.2 K/mm3 (0-0.3); Eosinophils Percent Auto 2.4 % (0-4.4); Glucose Urine UA Negative (Negative); Hematocrit 46.1 % (42.0-52.0); Hemoglobin 14.6 g/dL (14.0-18.0); Immature Granulocyte Absolute 0.02 K/mm3 (0.00-0.031); Immature Granulocyte Percent A 0.3 % (0-0.5); Ketones Urine Negative (Negative); Leukocyte Esterase Ur Negative LEU/UL (Negative); Lymphocytes Absolute Auto 2.18 K/mm3 (0.9-3.2); Lymphocytes Percent Auto 30.3 % (18.3-44.2); Mean Corpuscular HGB Conc 31.7 g/dl (32-36); Mean Corpuscular Hemoglobin 27.7 pg (26-34); Mean Corpuscular Volume 87.5 fl (80-100); Mean Platelet Volume 12.5 fl (7.4-10.4); Monocytes Absolute Auto 0.7 K/mm3 (0.1-0.6); Monocytes Percent Auto 9.3 % (2.6-8.5); Neutrophils Absolute Auto 4.1 K/mm3 (1.3-6.7); Nitrate Urine Negative (Negative); Platelet Count Result 170 k/mm3 (150-375); Protein Urine Negative (Negative); Red Blood Count 5.27 M/mm3 (4.6-6.20); Red Cell Distribution Width 13.6 % (11.5-14.5); Specific Grav Ur 1.019 (1.001-1.035); Urobilinogen Urine 0.2 mg/dL (<2.0); White Blood Count 7.2 K/mm3 (4.5-10.0)
[2024-07-08 20:27] LABS: MALB Creatinine Ratio 24.3 mg/g (0-30); Microalbumin Urine Random 23.6 mg/L (0-16.7)
[2024-07-08 21:00] LABS: Vitamin D 25 Hydroxy 63.9 ng/mL
[2024-07-08 21:15] LABS: Hemoglobin A1C 6.7 % (<5.7)
[2024-07-08 21:18] LABS: Alanine Aminotransferase 31 U/L (6-50); Albumin Level 4.2 g/dL (3.5-5.1); Alkaline Phosphatase 56 U/L (38-126); Anion Gap 10 mmol/L (4-12); Aspartate Amino Transferase 35 U/L (17-59); Bilirubin,Total 0.9 mg/dL (0.2-1.3); Blood Urea Nitrogen 25 mg/dL (9-20); Calcium 8.9 mg/dL (8.4-10.2); Carbon Dioxide 27 mmol/L (22-30); Chloride 100 mmol/L (98-107); Cholesterol 136 mg/dL (0-200); Estimated Glomerular Filt Rate > 60; Glucose 122 mg/dL (65-110); HDL Direct 45 mg/dL; Potassium 4.2 mmol/L (3.4-5.0); Sodium 137 mmol/L (137-145); Triglycerides 119 mg/dL (<150)
[2024-07-08 21:30] LABS: LDL Cholesterol Direct 70 mg/dL
[2024-07-08 21:50] LABS: Prostate Specific Antigen 2.4 ng/mL (< OR = 4.0)
--- OUTSIDE RECORDS SUMMARY | 2024-07-09 22:03 | XMS_ITS | Continuity of Care Document ---
Author Name [facility] Organization [facility] Care Team Providers Care Milk Wagon Driver Name Role Phone [facility] Unavailable Unavailable Problems Combined list of problems from Department of [facility] and [facility] facilities. It does not include entries that were removed or entered in error. Problem Status Onset Date Problem Type Date of Resolution Comments Source AF- Atrial Fibrillation ([facility] [id number]) Active Condition [facility] Allergic Rhinitis ([facility] 04740238) Active Condition [facility] Asthma ([facility] 248533984) Active Condition [facility] Bicuspid aortic valve Active Condition [facility] CAD - Coronary Artery Disease ([facility] [id number]) Active Condition [facility] Diabetes mellitus Active Condition [facility] Dupuytren contracture Active Condition [facility] Exposure to potentially hazardous substance ([facility] [id number]) Active Condition Oct 01 Entered By: SILAS HALL Comment: Entered automatically through RANDEE Problem List documentation program [facility] GERD - Gastro-Esophageal Reflux Disease ([facility] [id number]) Active Condition [facility] Hearing Loss ([facility] 90602834) Active Condition [facility] History of colonic polyp Active Condition [facility] History of heart failure Active Condition [facility] HTN - Hypertension ([facility] 55232166) Active Condition [facility] OA - Osteoarthritis ([facility] 370147033) Active Condition [facility] Obesity ([facility] 133625767) Active Condition [facility] Obstructive Sleep Apnea Syndrome ([facility] 91458736) Active Condition [facility] Past history of procedure Active Condition Dec 22, 2020 Entered By: CARLA BRENNAN Comment: 09/05/17 aortic valve replacement (25 mm magna ease bioprosthetic aortic valve) and maze procedureJul 14, 2021 Entered By: CARLA BRENNAN Comment: 1980s left achilles tendon surgeryJul 2020 Entered By: CARLA BRENNAN Comment: 2013 4th right finger tigger releaseJul 2020 Entered By: CARLA BRENNAN Comment: 2012 partial right nephrectomyJul 2020 Entered By: CARLA BRENNAN Comment: 2017 right cataract eye surgery [facility] Prosthetic heart valve in situ Active Condition [facility] Pulmonary hypertension Active Condition [facility] Renal cell carcinoma Active Condition [facility] Diagnosis: ICD-10-CM H90.3 Sensorineural hearing loss, bilateral Active Diagnosis [facility] Diagnosis: ICD-10-CM J45.909 Unspecified asthma, uncomplicated Active Diagnosis [facility] Diagnosis: ICD-10-CM H91.93 Unspecified hearing loss, bilateral Active Diagnosis [facility] Medications Combined list of outpatient medications from Department of Defense and [facility] Affairs facilities.Medications provided include 1) outpatient medications from the last 15 months, and 2) patient-reported medications. Medication Details Route Status Patient Instructions Prescription Expires Prescription Number Last Dispense Date Ordering Provider Order Date Order Qty Source ALBUTEROL SO4 90MCG/ACTUA T (CFC-F) INHL,ORAL,8 .5GM INHALE 2 PUFFS BY ORAL INHALATI ON FOUR TIMES A DAY NEEDED FOR BREATHIN G. SHAKE WELL. RINSE MOUTHPIE CE FREQUENT LY TO PREVENT CLOGGING . USE WITH SPACER FOR BREATHIN G. SHAKE WELL. RINSE MOUTHPIE CE FREQUENT LY TO PREVENT CLOGGING . USE WITH SPACER RESPIR ATORY (INHAL ATION) 01/15/2024 [id number] ME PABLO TTISA 2022 1 [facility] ASPIRIN 81MG TAB,CHEWABL E CHEW AND SWALLOW ONE TABLET BY MOUTH ONCE A DAY FOR CARDIOVA SCULAR DISEASE (TAKE WITH FOOD) ORAL ACTIVE 02/13/2025 [id number] LORE MEZA 2023 90 [facility] ASPIRIN 81MG TAB,EC TAKE ONE TABLET BY MOUTH ONCE A DAY FOR HEART OR CIRCULAT ION. TAKE WITH FOOD. ORAL 01/15/2024 [id number] SHAH,ME TTISA 2022 120 [facility] ATORVASTATI N CA 40MG TAB TAKE ONE-HALF TABLET BY MOUTH EVERY EVENING FOR HIGH CHOLESTE ROL ORAL ACTIVE 02/13/2025 [id number] CARMENCARL LORE Leon C 2023 45 [facility] ATORVASTATI N CA 40MG TAB TAKE ONE-HALF TABLET BY MOUTH EVERY EVENING TO LOWER CHOLESTE ROL ORAL 01/15/2024 [id number] SHAH,ME TTISA 2022 45 [facility] FLUTICASONE 250MCG/SALM ETEROL 50MCG INHL,ORAL,D ISKUS,60 INHALE 1 PUFF BY ORAL INHALATI ON TWICE A DAY FOR BREATHIN G (OPEN DISKUS; CLICK ONLY ONCE; MAY INHALE TWICE TO COMPLETE DOSE; CLOSE WHEN FINISHED ) RINSE MOUTH AND SPIT AFTER EACH USE. RESPIR ATORY (INHAL ATION) 01/15/2024 [id number] 4 SHAH,ME TTISA 2022 3 [facility] HYDROCHLORO THIAZIDE 12.5MG/LOSA RTAN POTASSIUM 50MG TAB TAKE 1 TABLET BY MOUTH EVERY MORNING FOR HIGH BLOOD PRESSURE ORAL 06/14/2024 [id number] PABLO,ME TTISA 2022 90 [facility] METFORMIN HCL 500MG 24HR TAB,SA TAKE TWO TABLETS BY MOUTH ONCE A DAY FOR DIABETES TAKE WITH FOOD. AVOID ALCOHOL. DISCONTI NUE BEFORE GETTING XRAY DYE. ORAL ACTIVE 06/02/2025 [id number] 5 SHAH,ME TTISA 2023 60 [facility] METFORMIN HCL 500MG 24HR TAB,SA TAKE TWO TABLETS BY MOUTH ONCE A DAY FOR DIABETES TAKE WITH FOOD. AVOID ALCOHOL. DISCONTI NUE BEFORE GETTING XRAY DYE. ORAL DISCONT INUED 03/11/2025 [id number] SHAH,ME TTISA 2023 60 [facility] METFORMIN HCL 500MG 24HR TAB,SA TAKE TWO TABLETS BY MOUTH ONCE A DAY FOR DIABETES TAKE WITH FOOD. AVOID ALCOHOL. DISCONTI NUE BEFORE GETTING XRAY DYE. ORAL DISCONT INUED 11/25/2024 [id number] SHAH,ME TTISA 2023 60 [facility] METFORMIN HCL 500MG 24HR TAB,SA TAKE ONE TABLET BY MOUTH ONCE A DAY FOR BLOOD SUGAR CONTROL. TAKE WITH FOOD. AVOID ALCOHOL. DISCONTI NUE BEFORE GETTING XRAY DYE. ORAL DISCONT INUED (EDIT) 01/15/2024 [id number] SHAH,AK TTISA 2022 90 [facility] METOPROLOL TARTRATE 50MG TAB TAKE ONE-HALF TABLET BY MOUTH TWICE A DAY FOR HEART/BL OOD PRESSURE . TAKE WITH OR IMMEDIAT CRISPIN FOLLOWIN G FOOD. ORAL ACTIVE 02/13/2025 [id number] SHAH,AK TTISA 2023 90 [facility] METOPROLOL TARTRATE 50MG TAB TAKE ONE-HALF TABLET BY MOUTH TWICE A DAY FOR HEART/BL OOD PRESSURE . TAKE WITH OR IMMEDIAT CRISPIN FOLLOWIN G FOOD. ORAL DISCONT INUED 01/15/2024 [id number] 4 SHAH,AK TTISA 2022 90 [facility] Allergies, Adverse Reactions, Alerts Combined list of allergies from Department of Defense and Veterans Affairs facilities. It does not include entries that were removed or entered in error. Substance Category Reaction Severity Reaction type Status Date Reported Comments Source POLLEN Propensity to adverse reaction (finding) Dyspnea active 12/28/2020 [facility] Immunizations Combined list of available immunizations from the Department of Defense and Veterans Affairs facilities. Immunization Series Date Given Administered By Site Reaction Lot Number CVX Code Drug Office Manager Receptionist Status Comments Source INFLUENZA, HIGH-DOSE, QUADRIVALENT, PF 1 2022 197 complet ed [facility] TDAP 2021 115 complet ed [facility] ZOSTER RECOMBINANT 2 2021 187 complet ed [facility] INFLUENZA, HIGH-DOSE, QUADRIVALENT, PF 1 2021 197 complet ed [facility] INFLUENZA, UNSPECIFIED FORMULATION 2021 88 complet ed [facility] COVID-19 (MODERNA), MRNA, LNP-S, PF, 100 MCG/0.5ML DOSE OR 50 MCG/0.25ML DOSE 4 2021 NONE 207 complet ed MOD; [id number]; 2 [facility] ZOSTER RECOMBINANT 1 2021 NONE 187 complet ed [facility] PNEUMOCOCCAL CONJUGATE PCV20, POLYSACCHARID E [id number] CONJUGATE, ADJUVANT, PF 1 2021 216 complet ed [facility] COVID-19 (MODERNA), MRNA, LNP-S, PF, 100 MCG OR 50 MCG DOSE 2020 207 complet ed [facility] INFLUENZA, HIGH-DOSE, QUADRIVALENT, PF 1 2020 197 complet ed [facility] INFLUENZA, UNSPECIFIED FORMULATION 2020 88 complet ed [facility] COVID-19 (MODERNA), MRNA, LNP-S, PF, 100 MCG/0.5 ML DOSE 2 2020 207 complet ed [facility] COVID-19 (MODERNA), MRNA, LNP-S, PF, 100 MCG/0.5 ML DOSE 1 2020 207 complet ed [facility] INFLUENZA, UNSPECIFIED FORMULATION 2019 88 complet ed [facility] INFLUENZA, HIGH-DOSE, QUADRIVALENT, PF 1 2019 197 complet ed [facility] INFLUENZA, HIGH-DOSE, TRIVALENT, PF 1 2018 135 complet ed [facility] PNEUMOCOCCAL POLYSACCHARID E PPV23 2018 33 complet ed [facility] INFLUENZA, HIGH-DOSE, TRIVALENT, PF 1 2017 135 complet ed [facility] INFLUENZA, HIGH-DOSE, TRIVALENT, PF 1 2016 135 complet ed [facility] Results Combined list of recent chemistry, hematology and other laboratory results from Department of Defense and Veterans Affairs, ranging from 15 months to all on record, depending upon the facility. Order Name Results Value Reference Range Date Interpretation Specimen Comments Source BASIC METABOLIC PANEL CREATININE [MASS/VOLUME] IN SERUM OR PLASMA 1.30 mg/dL 0.7 - 1.3 01/13 Specimen Type: PLASMA Comment: No hemolysis noted. Ordering Provider: MET ALBERT SHAH Report Released Date/Time: Jan 14, 2024 10:34 AM Reporting Lab: [address] [address] Performing Lab: [id number] [place] [address] BASIC METABOLIC PANEL UREA NITROGEN [MASS/VOLUME] IN SERUM OR PLASMA 21.9 mg/dL 9.0 - 25.0 01/13 Specimen Type: PLASMA Comment: No hemolysis noted. Ordering Provider: MET ALBERT SHAH Report Released Date/Time: Jan 14, 2024 10:34 AM Reporting Lab: [address] [address] Performing Lab: [address] [id number] [place] [address] BASIC METABOLIC PANEL GLUCOSE [MASS/VOLUME] IN SERUM OR PLASMA 131 mg/dL 72 - 99 01/13 H Specimen Type: PLASMA Comment: No hemolysis noted. Ordering Provider: MET ALBERT SHAH Report Released Date/Time: Jan 14, 2024 10:34 AM Reporting Lab: [address] [address] Performing Lab: [address] [place] [address] [facility] BASIC METABOLIC PANEL SODIUM [MOLES/VOLUME ] IN SERUM OR PLASMA 141 meq/L 136 - 145 01/13 Specimen Type: PLASMA Comment: No hemolysis noted. Ordering Provider: MET ALBERT SHAH Report Released Date/Time: Jan 14, 2024 10:34 AM Reporting Lab: [address] [address] Performing Lab: [facility] [address] [place] [phone] [facility] BASIC METABOLIC PANEL POTASSIUM [MOLES/VOLUME ] IN SERUM OR PLASMA 3.8 meq/L 3.5 - 5 01/13 Specimen Type: PLASMA Comment: No hemolysis noted. Ordering Provider: MET ALBERT SHAH Report Released Date/Time: Jan 14, 2024 10:34 AM Reporting Lab: [address] [address] Performing Lab: [address] [address] [facility] BASIC METABOLIC PANEL CHLORIDE [MOLES/VOLUME ] IN SERUM OR PLASMA 106 meq/L 98 - 107 01/13 Specimen Type: PLASMA Comment: No hemolysis noted. Ordering Provider: MET ALBERT SHAH Report Released Date/Time: Jan 14, 2024 10:34 AM Reporting Lab: [address] [address] Performing Lab: [address] [address] [facility] BASIC METABOLIC PANEL CARBON DIOXIDE, TOTAL [MOLES/VOLUME ] IN SERUM OR PLASMA 24 meq/L 22 - 31 01/13 Specimen Type: PLASMA Comment: No hemolysis noted. Ordering Provider: MET ALBERT SHAH Report Released Date/Time: Jan 14, 2024 10:34 AM Reporting Lab: [address] [address] Performing Lab: [address] [place] [address] [facility] BASIC METABOLIC PANEL CALCIUM [MASS/VOLUME] IN SERUM OR PLASMA 9.6 mg/dL 8.4 - 10.4 01/13 Specimen Type: PLASMA Comment: No hemolysis noted. Ordering Provider: MET ALBERT SHAH Report Released Date/Time: Jan 14, 2024 10:34 AM Reporting Lab: [address] [address] Performing Lab: [address] [address] [facility] BASIC METABOLIC PANEL GLOMERULAR FILTRATION RATE/1.73 SQ M.PREDICTED [VOLUME RATE/AREA] IN SERUM, PLASMA OR BLOOD BY CREATININE-BA SED FORMULA (CKD-EPI 2020) 56.9 60 01/13 Specimen Type: PLASMA Comment: No hemolysis noted. Ordering Provider: MET ALBERT SHAH Report Released Date/Time: Jan 14, 2024 10:34 AM Reporting Lab: [address] [address] Performing Lab: [address] [address] [facility] LIPID PANEL (STL) CHOLESTEROL [MASS/VOLUME] IN SERUM OR PLASMA 141 mg/dL 0 - 200 01/13 Specimen Type: PLASMA Comment: No hemolysis noted. Ordering Provider: MET ALBERT SHAH Report Released Date/Time: Jan 14, 2024 10:34 AM Reporting Lab: [address] [address] Performing Lab: [address] [address] [facility] LIPID PANEL (STL) TRIGLYCERIDE [MASS/VOLUME] IN SERUM OR PLASMA 139 mg/dL 0 - 150 01/13 Specimen Type: PLASMA Comment: No hemolysis noted. Ordering Provider: MET ALBERT SHAH Report Released Date/Time: Jan 14, 2024 10:34 AM Reporting Lab: [address] [place] [address] Performing Lab: [facility] [address] [place] [address] [facility] LIPID PANEL (STL) CHOLESTEROL IN LDL [MASS/VOLUME] IN SERUM OR PLASMA BY CALCULATION 66 mg/dL 01/13 Specimen Type: PLASMA Comment: No hemolysis noted. Ordering Provider: MET ALBERT SHAH Report Released Date/Time: Jan 14, 2024 10:34 AM Reporting Lab: [address] [address] Performing Lab: [address] [address] [facility] LIPID PANEL (L) CHOLESTEROL IN HDL [MASS/VOLUME] IN SERUM OR PLASMA 47 mg/dL 40 01/13 Specimen Type: PLASMA Comment: No hemolysis noted. Ordering Provider: MET ALBERT SHAH Report Released Date/Time: Jan 14, 2024 10:34 AM Reporting Lab: [address] [address] Performing Lab: [address] [address] [facility] HGA1C HEMOGLOBIN A1C/HEMOGLOBI N.TOTAL IN BLOOD 6.5 4.0 - 6.0 01/13 H Specimen Type: BLOOD No comment entered. Ordering Provider: MET ALBERT SHAH Report Released Date/Time: Jan 14, 2024 10:34 AM Reporting Lab: [address] [address] Performing Lab: [address] [address] [facility] GLUCOSE,BL OOD-poct (STL) GLUCOSE [MASS/VOLUME] IN BLOOD BY AUTOMATED TEST STRIP 126 mg/dL 72 - 99 01/14 H Specimen Type: BLOOD Comment: Test Performed by: [id number] Meter #: [id number] Ordering Provider: SHAH,MET ALBERT Report Released Date/Time: Jan 14, 2023 04:17 PM Reporting Lab: [facility] [address] [facility] [address] Performing Lab: [facility] [address] [facility] [address] [facility] Vital Signs Combined list of inpatient and outpatient Vital Signs from [facility] and [facility], ranging from 12 months to all on record, depending upon the facility. Vital Sign Value Date Comments Source SYSTOLIC BLOOD PRESSURE 125 01/14/2024 09:55:04 [facility] DIASTOLIC BLOOD PRESSURE 65 01/14/2024 09:55:04 [facility] PULSE OXIMETRY 96 01/14/2024 09:55:04 [facility] WEIGHT 233 01/14/2024 09:55:04 [facility] BMI 39kg/m2 01/14/2024 09:55:04 [facility] PAIN 0 01/14/2024 09:55:04 [facility] HEIGHT 65 01/14/2024 09:55:04 [facility] TEMPERATURE 98 01/14/2024 09:55:04 [facility] PULSE 43 01/14/2024 09:55:04 [facility] RESPIRATION 18 01/14/2024 09:55:04 [facility] Encounters Combined list of: 1) Encounters from Department of [facility] facilities going back up to thelast 18 months. 2) Encounters from the Department of [facility] facilities going back up to 280 months. Location Location Details Encounter Type Encounter Number Reason For Visit Attending Provider ADM Date DC Date Status Disposition Source [facility] Outpatient Encounter [id number] 01/09 [facility] Outpatient Encounter [id number] BAL HELMS 01/11 [facility] OBED Gregg [facility] Outpatient Encounter [id number] 01/14 [facility] OFFICE O/P EST MOD 30-39 MIN [id number] Diagnos is: ICD-10- CM J45.909 Unspeci fied asthma, uncompl icated< br/> SHAH,MET ALBERT 01/14 [facility] HEARING AID CHECK ONE EAR [id number] Diagnos is: ICD-10- CM H90.3 Sensori neural hearing loss, bilater al
SUMAN GARIBAY 05/22 [facility] Outpatient Encounter [id number] 06/04 [facility] Outpatient Encounter [id number] 06/04 [facility] HEARING AID CHECK ONE EAR [id number] Diagnos is: ICD-10- CM H90.3 Sensori neural hearing loss, bilater al
SUMAN GARIBAY 06/19 [facility] Outpatient Encounter [id number] 06/30 [facility] HEARING AID REPAIR/MOD IFYING [id number] Diagnos is: ICD-10- CM H90.3 Sensori neural hearing loss, bilater al
SUMAN GARIBAY 08/07 [facility] SELF-MGMT EDUC & TRAIN 1 [place] [id number] Diagnos is: ICD-10- CM H91.93 Unspeci fied hearing loss, bilater al
DEVEN GARCIA E 10/06 [facility] HEARING AID SUP/ACCESS /DEV [id number] Diagnos is: ICD-10- CM H90.3 Sensori neural hearing loss, bilater al
VEST,FAWN A 11/03 [facility] En[facility] [id number] SAUNDRA PURCELL R 11/24 [facility] OFFICE O/P EST MOD 30 MIN [id number] Diagnos is: ICD-10- CM J45.909 Unspeci fied asthma, uncompl icated< br/> SHAH,MET ALBERT 01/13 [facility] HEARING AID REPAIR/MOD IFYING [id number] Diagnos is: ICD-10- CM H90.3 Sensori neural hearing loss, bilater al
VESTFAWN A 02/02 [facility] Outpatient Encounter [id number] 02/12 [facility] HEARING AID REPAIR/MOD IFYING [id number] Diagnos is: ICD-10- CM H90.3 Sensori neural hearing loss, bilater al
GRZEGORZ MADERA 06/16 [facility] N Social History Combined list of available smoking, tobacco, and other social history from Department of Defense and Veterans Affairs facilities. Social History Type Response Date Comment [facility] e Tobacco smoking status [facility] VA-TOBACCO FORMER USER 01/14/2024 [facility] History of tobacco use VA-TOBACCO QUIT 1 5 YRS OR MORE 01/14/2024 [facility] History of tobacco use VA-TOBACCO FORMER USER 01/11/2023 [facility] History of tobacco use VA-TOBACCO FORMER USER 01/12/2022 [facility] History of tobacco use VA-TOBACCO FORMER USER 12/28/2020 [facility]
--- OUTSIDE RECORDS SUMMARY | 2024-07-09 22:03 | XMS_ITS | Encounter Summary ---
Author Name [facility] Address [address] [place] [id number] Care Team Providers Care Power Machine Operator Name Role Phone LORE PEARSON Primary Care Provider Unavail able Insurance Providers: All historical and current Section Date Range: From patient's date of to the date document was created. This section includes the names of all active insurance providers for the patient. Insurance Provider Type of Coverage Plan Name Start of Policy Coverage End of Policy Coverage Group Number Member ID Insurance Provider's Telephone Number Policy Adair's Name Patient's Relationship to Policy Adair MEDICARE (WNR) MEDICARE (M) PART A Jun 17, 2012 PART A [id number] FURFARO,P ASQUALE PATIENT MEDICARE (WNR) MEDICARE (M) PART B Jun 17, 2012 PART B [id number] FURFARO,P ASQUALE PATIENT [employer] PLAN G MEDIC ARE SUPPL EMENT Dec 15, 2020 PLAN G [id number] [phone] FURFARO,P ASQUALE PATIENT Selected Encounter This section includes the information on record at [place] for the Encounter. Date/Time Encounter Type Encounter Description Reason Provider Source Jan 14, 2024 10:00 AM OFFICE O/P EST MOD 30 MIN PRIMARY CARE/MEDICINE ICD-10-CM J45.909 Unspecified asthma, uncomplicated PRICE SHAH IHCarlos Encounter Template Text not used by [place] Assessments - Encounter Diagnoses This section includes the primary and secondary diagnoses documented for the Encounter. Date/Time Primary/Secondary Diagnosis Diagnosis Name Provider Source Jan 15, 2024 03:01 PM PRIMARY Unspecified asthma, uncomplicated SHAHVANDANA FOY [facility] Jan 15, 2024 03:01 PM SECONDARY Athscl heart disease of [place] coronary artery w/o ang pctrs [facility] Jan 15, 2024 03:01 PM SECONDARY Essential (primary) hypertension [facility] Jan 15, 2024 03:01 PM SECONDARY Gastro-esophageal reflux disease without esophagitis [facility] Jan 15, 2024 03:01 PM SECONDARY Obesity, unspecified SHAH,[facility] Jan 15, 2024 03:01 PM SECONDARY Obstructive sleep apnea (adult) (pediatric) [facility] Jan 15, 2024 03:01 PM SECONDARY Personal history of colonic polyps [facility] Jan 15, 2024 03:01 PM SECONDARY Personal history of other malignant neoplasm of kidney SHAH,[facility] Jan 15, 2024 03:01 PM SECONDARY Type 2 diabetes mellitus without complications [facility] Plan of Treatment: Future Appointments (+ 6 months) and Future Tests (+/- 45 days) The Plan of Treatment section includes future care activities for the patient from all [place] treatmentfacilities. This section includes future appointments and future orders which are active, pending or scheduled. Active, Pending, and Scheduled Orders This section includes a listing of several types of active, pending, and scheduled orders, including clinic medications orders, diagnostic test orders, procedure orders and consult orders; where the start date of the order is 45 days before the date of the Encounter or 45 days after the date of theEncounter. The data comes from all [place] treatment facilities. Test Date/Time Test Type Test Details Facility Name Jan 14, 2024 12:00 AM Laboratory - Chemi stry Order MICRAL/CREAT PROFILE (STL) URINE SP [facility] Lab Results: +/- 30 days of the encounter This section includes the Chemistry and Hematology Lab Results on record with [place] for the patient. Radiology Reports and Pathology Reports are provided separately, in subsequent sections. Lab Results This section contains the Chemistry/Hematology Results that were resulted 30 days before or 30 daysafter the date of the Encounter. Date/Time Source Result Type Result - Unit Interpretation Reference Range Comment Jan 14, 2024 10:52 AM [facility] BASIC METABOLIC PANEL Specimen Type: PLASMA Comment: No hemolysis noted. Ordering Provider: JERSON SHAH SA Report Released Date/Time: Jan 14, 2024 10:34 AM Reporting Lab: [facility] [address] [place] [phone] Performing Lab: [address] [phone] CREATININE 1.30 mg/dL 0.7-1.3 UREA NITROGEN 21.9 mg/dL 9.0-25.0 GLUCOSE 131 mg/dL H 72-99 SODIUM 141 meq/L 136-145 POTASSIUM 3.8 meq/L 3.5-5 CHLORIDE 106 meq/L 98-107 CARBON DIOXIDE 24 meq/L 22-31 CALCIUM 9.6 mg/dL 8.4-10.4 EGFR (CKD-EPI 2020) 56.9 >60 Jan 14, 2024 10:52 AM [facility] LIPID PANEL (STL) Specimen Type: PLASMA Comment: No hemolysis noted. Ordering Provider: JERSON SHAH SA Report Released Date/Time: Jan 14, 2024 10:34 AM Reporting Lab: [facility] [address] [place] [phone] Performing Lab: [address] [phone] CHOLESTEROL 141 mg/dL 0-200 TRIGLYCERIDE 139 mg/dL 0-150 CALCULATED LDL 66 mg/dL HDL(New) 47 mg/dL >40 Jan 14, 2024 10:52 AM [facility] HGA1C Specimen Type: BLOOD No comment entered. Ordering Provider: JERSON SHAH SA Report Released Date/Time: Jan 14, 2024 10:34 AM Reporting Lab: [facility] [address] [facility] [phone] Performing Lab: [facility] [address] [facility] [phone] HGA1C 6.5 H 4.0-6.0 Vital Signs: All taken on the encounter date This section contains inpatient and outpatient Vital Signs collected on the date of the Encounter. Date/Time Temperature Pulse Blood Pressure Respiratory Rate SP02 Pain Height Weight Body Mass Index Source Jan 14, 2024 09:55 AM 98 43 125/65 18 96 0 65 233 39 [facility] Social History: Smoking Status (Most current) and Tobacco Use (All prior to encounter date) This section includes the most current, and the historical, smoking and tobacco- related health factors from the [place] facility where the Encounter took place. Current Smoking Status This section includes the most current smoking, or tobacco-related health factor, from the [place] facility where the Encounter took place. Date/Time Current Smoking Status Comment Facil ity Jan 14, 2024 10:00 AM VA-TOBACCO FORMER USER [facility] Tobacco Use History This section includes a history of the smoking, or tobacco-related health factors, that were collected on or before the date of the Encounter. The data comes from the [place] facility where the Encounter took place. Date/Time Smoking Status/Tobacco Use Comment F acility Jan 14, 2024 10:00 AM [place]-TOBACCO QUIT 15 YRS OR MORE [facility] Encounter Notes: All associated encounter notes This section contains the clinical notes associated to the Encounter. Date/Time Encounter Note(s) Provider Source Jan 17, 2024 09:26 AM PHYSICIAN LETTERS: LOCAL TITLE: TEST RESULT GENERAL LETTER ST STANDARD TITLE: PHYSICIAN LETTERS DATE OF NOTE: JAN 17, 2024@09:26 ENTRY DATE: JAN 17, 2024@09:26:04 AUTHOR: VANDANA SHAH EXP COSIGNER: URGENCY: STATUS: COMPLETED [place] [place] [address] JAN 17, 20[address]PLE [address] [place] [address] [place], [place] [address] Dear Eduardo Whipple, I would like to update you on your recent test results. LIPID PROFILE - High cholesterol and triglycerides (lipids) are risk factors for heart disease. Your cholesterol should fall between 140 and 200, and your triglycerides levels should be less than or equal to 150. HDL is the good cholesterol and should ideally be greater than 40. LDL is the bad cholesterol and optimal levels should be less than 100 (near optimal is between 100 and 129). TRIGLYCERIDE 139 mg/dL 01/14/2024 10:52 CHOLESTEROL 141 mg/dL 01/14/2024 10:52 HDL(New) 47 mg/dL 01/14/2024 10:52 CALCULATED LDL 66 mg/dL 01/14/2024 10:52 These readings are within normal limits. HEMOGLOBIN A1C - Gives us information about your diabetes (sugar or glucose) control over the past 3 months. Your target is to keep your A1C below 7 %. HGA1C 6.5 H % 01/14/2024 10:52 These readings are within normal limits. CHEM 7 - This is important information about the current status of your kidneys, liver, and electrolyte and acid/base balance as well as of your blood sugar and blood proteins. SODIUM 141 mEq/L 01/14/2024 10:52 POTASSIUM 3.8 mEq/L 01/14/2024 10:52 CHLORIDE 106 mEq/L 01/14/2024 10:52 UREA NITROGEN 21.9 mg/dL 01/14/2024 10:52 CREATININE 1.30 mg/dL 01/14/2024 10:52 CALCIUM 9.6 mg/dL 01/14/2024 10:52 CARBON DIOXIDE 24 mEq/L 01/14/2024 10:52 GLUCOSE 131 H mg/dL 01/14/2024 10:52 EGFR (CKD-EPI 2020) 56.9 01/14/2024 10:52 These readings are within normal limits. FUTURE APPOINTMENTS: 01/14/2025 09:30 GIOVANA-ST CLR PACT 5 PCP Sincerely, VANDANA SHAH STAFF PHYSICIAN EDUARDO WHIPPLE [facility] Jan 14, 2024 10:20 AM PRIMARY CARE NOTE: LOCAL TITLE: PRIMARY CARE PROVIDER ESTABLISHED VISIT ST STANDARD TITLE: PRIMARY CARE NOTE DATE OF NOTE: JAN 14, 2024@10:20 ENTRY DATE: JAN 14, 2024@10:20:59 AUTHOR: VANDANA SHAH EXP COSIGNER: URGENCY: STATUS: COMPLETED Patient is a 78 and NOT OR Self Identified Gender - Man Reason for visit:Scheduled follow-up Chief Complaint:f/u History of Present Illness: toe fungus, ongoing for sev yrs med adjustments noted, due for labs NON-[place] PROVIDERS:Dr. Quinn Conroy - cardiologistDrMathew Stephens - pcm Dr. Giron - gastroenterologistDrMathew Rosa - urologist Dr. [place]ct[place] - dentistDrMathew Tian - photo lab specialist Problem List: 1) Past history of procedure 2) Prosthetic heart valve in situ 3) HTN - Hypertension ([facility] [id number]) 4) GERD - Gastro-Esophageal Reflux Disease ([facility] [id number]) 5) AF- Atrial Fibrillation ([facility] 35216569) 6) History of heart failure 7) Obstructive Sleep Apnea Syndrome ([facility] 69496752) 8) CAD - Coronary Artery Disease ([facility] [id number]) 9) Bicuspid aortic valve 10) Pulmonary hypertension 11) Asthma ([facility] [id number]) 12) Renal cell carcinoma 13) Obesity ([facility] [id number]) 14) Allergic Rhinitis ([facility] 89975051) 15) OA - Osteoarthritis ([facility] 295284723) 16) Hearing Loss ([facility] [id number]) 17) History of colonic polyp 18) Diabetes mellitus 19) Dupuytren contracture 20) Exposure to potentially hazardous substance ([facility] [id number]) Medication Review: The essential med list for review which includes the patient's active VA prescriptions and if applicable, remote VA prescriptions, non-VA prescriptions, and discontinued VA prescriptions within the last 90 days and known allergies including local and remote allergies have been reviewed. Allergies:POLLEN Active Outpatient Medications (including Supplies): ALBUTEROL 90MCG (CFC-F) 200D ORAL INHL INHALE 2 PUFFS BY ACTIVE ORAL INHALATION FOUR TIMES A DAY NEEDED FOR BREATHING. SHAKE WELL. RINSE MOUTHPIECE FREQUENTLY TO PREVENT CLOGGING. USE WITH SPACER ASPIRIN 81MG EC TAB TAKE ONE TABLET BY MOUTH ONCE A DAY ACTIVE FOR HEART OR CIRCULATION. TAKE WITH FOOD. ATORVASTATIN CALCIUM 40MG TAB TAKE ONE-HALF TABLET BY ACTIVE MOUTH EVERY EVENING TO LOWER CHOLESTEROL FLUTICAS 250/SALMETEROL 50 INHL DISK 60 INHALE 1 PUFF BY ACTIVE ORAL INHALATION TWICE A DAY FOR BREATHING (OPEN DISKUS; CLICK ONLY ONCE; MAY INHALE TWICE TO COMPLETE DOSE; CLOSE WHEN FINISHED) RINSE MOUTH AND SPIT AFTER EACH USE. HCTZ 12.5MG/LOSARTAN 50MG TAB TAKE 1 TABLET BY MOUTH EVERY ACTIVE MORNING FOR HIGH BLOOD PRESSURE LOSARTAN 100MG TAB TAKE ONE-HALF TABLET BY MOUTH ONCE A ACTIVE DAY TO LOWER BLOOD PRESSURE METFORMIN HCL 500MG 24HR SA TAB TAKE TWO TABLETS BY MOUTH ACTIVE ONCE A DAY FOR DIABETES TAKE WITH FOOD. AVOID ALCOHOL. DISCONTINUE BEFORE GETTING XRAY DYE. METOPROLOL TARTRATE 50MG TAB TAKE ONE-HALF TABLET BY MOUTH ACTIVE TWICE A DAY FOR HEART/BLOOD PRESSURE. TAKE WITH OR IMMEDIATELY FOLLOWING FOOD. Physical Exam VITALS (most recent, as listed in the electronic record): B/P: 125/65 (01/14/2024 09:55) Pulse: 43 (01/14/2024 09:55) Temperature: 98 F [36.7 C] (01/14/2024 09:55) Weight: 233 lb [105.69 kg] (01/14/2024 09:55) Height: 65 in [165.1 cm] (01/14/2024 09:55) BMI: 38.9 Pain: 0 (01/14/2024 09:55) (0-10 scale) General: WD, WN in NAD, pleasant affect Lungs: CTA bilat, no W/R/R Heart: RRR, nl S1/S2, no murmurs, no S3/S4 gallops. Extremities: No edema, pedal pulses intact Assessment/Plan: --Asthma-controlled, cont meds as ordered --Coronary Artery Disease, Atrial Fibrillation and Prosthetic heart valve in situ-09/05/17 aortic valve replacement (25 mm magna ease bioprosthetic aortic valve)-s/p maze procedure, meds as listed, continues to follow with non [place] cardio --GERD-controlled, no meds at present --HTN-encourage bp readings at home to document control, meds as noted --Obstructive Sleep Apnea-cont cpap --Type 2 diabetes-controlled, cont metformin, a1c ordered --History of colonic polyp-planning colonoscopy with non [place] provider --Personal History of other Malignant Neoplasm of Kidney-cont with non [place] provider --obesity-weight loss encouraged --prevention-colon ca screen UTD outside [place], RTC: 1 year CLINICAL REMINDERS COMPLETED /cole/ VANDANA SHAH STAFF PHYSICIAN Signed: 01/15/2024 15:03 VANDANA SHAH [facility] Jan 14, 2024 09:57 AM NURSING NOTE: LOCAL TITLE: V15 PACT FACE TO FACE NOTE STL STANDARD TITLE: NURSING NOTE DATE OF NOTE: JAN 14, 2024@09:57 ENTRY DATE: JAN 14, 2024@09:57:34 AUTHOR: SUPA HELMS COSIGNER: URGENCY: STATUS: COMPLETED Provider Visit: Patient Identifiers : Full Name Date of Reason for visit: Established Follow-Up Mode of Arrival: Ambulatory Allergy Review: POLLEN Allergy list reviewed and remains current. Recent Vital Signs: Temperature: 98 F [36.7 C] (01/14/2024 09:55) Pulse: 43 (01/14/2024 09:55) Respiration: 18 (01/14/2024 09:55) B/P: 125/65 (01/14/2024 09:55) Pain: 0 (01/14/2024 09:55) Wt: 233 lb [105.69 kg] (01/14/2024 09:55) Ht: 65 in [165.1 cm] (01/14/2024 09:55) BMI: 38.9 POX: 96% (01/14/2024 09:55) Blood sugar glucometer reading: N/A Would you like to discuss any personal problem, family problem, alcohol use, drug use, or a mental or emotional illness? No [facility] ([facility]), please select appointment type: Face to face: No-please briefly review benefits and direct [place] to [facility] to get more information and register if interested. Contact provided Primary Care phone number and encouraged to call if any questions or concerns. Review that after hours nurse line ext.[phone] and emergency room are available 07/01 for patient use. Contact verbalized good understanding. Frail/Elderly Screen: ADL Screen - Robison Index of [place] in Activities of Daily Living Bathing: (3 Points) Receives no assistance (gets in and out of tub by self, if tub is usual means of bathing) Dressing: (3 Points) Gets clothes and gets completely dressed without assistance. Toileting: (3 Points) Goes to toilet room , cleans self, and arranges clothes without assistance (may use object for support such as cane, walker, or wheelchair, and may manage own night bedpan or commode, emptying same next morning) Transferring: (3 Points) Moves in and out of bed and in and out of chair without assistance (may be using object for support, such as cane or walker) Continence: (3 Points) Controls urination and bowel movement completely by self Feeding: (3 Points) Feeds self without assistance Total Score: 18 Points 18 = High (patient independent) 6 = Low (patient very dependent) IADL Screen - David Instrumental Activities of Daily Living Scale Ability to use telephone: (1 point) Operates Telephone on own initiative; looks up and dials numbers. Shopping: (1 point) Takes care of all shopping needs independently. Food preparation: (1 point) Plans, prepares, and serves adequate meals independently. Housekeeping: (1 point) Maintains house alone with occasional assistance (heavy work). Laundry: (1 point) Does personal laundry completely. Mode of transportation: (1 point) Travels independently on public transportation or drives own car. Responsibility for own medications: (1 point) Is responsible for taking medications in correct dosages at correct times. Ability to handle finances: (1 point) Manages financial matters independently (budgets, writes checks, pays rent and bills, goes to bank); collects and keeps track of income. Total score: 8 points 8 = High function, independent 0 = Low function, dependent Falls Screen: No falls within the past 12 months. Incontinence Screen: No incontinence. Tobacco Use Screening: The patient is a former tobacco user. The patient quit fifteen or more years ago. Cigarette Pack Year History: The patient previously used cigarettes and quit smoking greater than or equal to 15 years ago. Sexual Orientation: The patient thinks of their sexual orientation as: Straight or Heterosexual Depression Screening: Perform PHQ-2 A PHQ-2 screen was performed. The score was 0 which is a negative screen for depression. Over the past two weeks, how often have you been bothered by the following problems? 1. Little interest or pleasure in doing things Not at all 2. Feeling down, depressed, or hopeless Not at all COVID-19 Immunization: Refused Moderna Monovalent COVID-19 vaccine Immunization: COVID-19 (MODERNA), MRNA, LNP-S, PF, 50 MCG/0.5 ML (AGES 12+ YEARS) Refusal Reason: PATIENT DECISION Patient refuses all immunization(s) in the COVID-19 group Date Documented: 01/14/24 10:00 Refused Pfizer Monovalent COVID-19 vaccine Immunization: COVID-19 (PFIZER), MRNA, LNP-S, PF, LULÚ-SUCROSE, 30 MCG/0.3 ML (AGES 12+ YEARS) Refusal Reason: PATIENT DECISION Patient refuses all immunization(s) in the COVID-19 group Date Documented: 01/14/24 10:01 PAVE Foot Check: A complete foot check was completed at this encounter. VISUAL INSPECTION: Includes inspection for skin breaks, deformity, erythema, trauma, pallor on elevation, dependent rubor, nail deformities, extensive callus and pitting edema. Visual exam results: Normal Comment: normal PEDAL PULSES: Includes palpation of dorsalis and posterior tibial pulses and signs/symptoms of vascular compromise like pain, pallor, parasthesia or paralysis. Present (even if diminished) Comment: present SENSORY CHECK: Includes 10 gram Monofilament (Nunez-Bruno) test of sensation. Intact (Greater than or equal to 80% of sites checked) Abnormal (Less than 80% of sites checked): Intact Comment: intact LOW-RISK: LOW RISK INFORMATION PROVIDED: 1. Advised patient not to walk barefoot. 2. Explained the importance of daily foot checks for changes. 3. Stressed the importance of daily foot hygiene, including bathing and complete drying. The patient verbalized understanding and was offered a detailed handout on diabetic foot care. /cole/ SUPA HELMS Licensed Practical Nurse Signed: 01/14/2024 10:04 SUPA HELMS [facility]
--- OUTSIDE RECORDS SUMMARY | 2024-07-09 22:04 | XMS_ITS | Encounter Summary ---
Author Organization [facility] Address 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 ? [place], [place] ??[id number] ? Patient: ??RUTH WHIPPLE ? : ??1945 ? Procedure Date: ??03/03/2008 ? Accession Date: ??03/03/2008 ? Case No: ??[id number] ? Ordering Dr: ??STAS CHRISTINE ? Case types AW, BW, FW, NW and SH are performed by [facility] ? Ctr, [place], [place] ?SURGICAL PATHOLOGY & NON-GYNECOLOGIC CYTOPATHOLOGY REPORT ? DIAGNOSIS ? LARGE INTESTINE, SIGMOID, BIOPSY: ? - FOCAL HYPERPLASTIC CHANGE. ? Specimen Description: ? Sigmoid colon polyp. ? Operative Procedure: ? Colonoscopy. ? Patient Information/Histo ry/Diagnosis: ? Colon polyp(s). Adenomatous vs. hyperplastic vs. other. ? Gross: ? Received iN a single container labeled ??Ruth Furfaro, sigmoid colon is ? a 0.2 cm piece of pate tissue that is submitted in A1. ? [facility]/PHC 03.04.2008 07:55 am ? Microscopic: ? The slides are labeled [id number], Ruthhoda Whipple. ? The biopsy consists of a single piece of colonic mucosa containing a small ? lymphoid aggregate. There is focal hyperplastic change. No Adenomatous ? epithelium is seen on multiple levels. ? [facility] 03.04.2008 10:45 am ? Staging Form: ? No. ? ELECTRONIC SIGNATURE FOR JACOB MONCADA M.D.- 03/04/08 02:07 ? pm INTERFACE SYSTEM 03/03/2008 1:20 PM CDT us Stas Christine MD PATHOLOGY/CYTOLOGY ORDERABL ES Final Result INTERFACE SYSTEM Refer to clinic/hospital department documented in this encounter Visit Diagnoses Diagnosis Personal history of colonic polyps documented in this encounter
--- OUTSIDE RECORDS SUMMARY | 2024-07-09 22:04 | XMS_ITS | Clinical Summary ---
Author Organization [facility] Address [address] [place] [address]. [address] [address] Care Team Providers Care Sap Basis Name Role Phone Unavailable Primary Care Provider Unavailabl e Social History Tobacco Use Types Packs/Day Years Used Date Smoking Tobacco: Never Assessed Sex and Gender Information Value Date Recorded Sex Assigned at Not on file Legal Sex Male 7:01 PM CDT Gender Identity Not on file Sexual Orientation Not on file Plan of Treatment Health Maintenance Due Date Last Done Comments Hepatitis C 1963 DTaP, Tdap and Td Vaccines ( 1 - Tdap) 1966 Zoster Vaccines (1 of 2) 1997 Pneumococcal Vaccine: 65+ Ye ars (1 of 1 - PCV) 2012 RSV Immunization or 60+ Years (1 - 1-dose 75+ series) 2022 COVID-19 Vaccine ( - 2023-2 5 season) 2024 Influenza Adult (#1) 2024 Meningococcal Vaccine Aged Out No shiva zan eligible based on patient's age to complete this topic RSV Immunizations Under 20 Months Aged Out No longer eligible based on patient's age to complete this topic
--- OUTSIDE RECORDS SUMMARY | 2024-07-09 22:04 | XMS_ITS | Encounter Summary ---
Author Organization [facility] Address [address] [place] [address]. [place], [place] [address] [place] [address] Care Team Providers Care Pathology Secretary Name Role Phone Unavailable Primary Care Provider Unavailabl e Encounter Details Date Type Department Care Team (Late st Contact Info) Description 05/23/2017 Abstract [facility] CONVERSION [address] [place] [address] , Generic Conversion, Social History Tobacco Use Types Packs/Day Years Used Date Smoking Tobacco: Never Assessed Sex and Gender Information Value Date Recorded Sex Assigned at Not on file Legal Sex Male 7:01 PM CDT Gender Identity Not on file Sexual Orientation Not on file documented as of this encounter Plan of Treatment Not on file documented as of this encounter Visit Diagnoses Not on filedocumented in this encounter
--- OUTSIDE RECORDS SUMMARY | 2024-07-09 22:04 | XMS_ITS | Referral Summary ---
Author Organization [facility] Address [address] [place] [address] Care Team Providers Care Special Effects Artist Name Role Phone Maureen Stephens MD Primary Care Provider Source Comments [facility] Affiliates and Associated Physician Practices is amultiple site organization consisting of ambulatory clinics and hospital sitesin [place], [place], [place] and [place]. This disclosure is being madepursuant to the Care Everywhere program and may not contain all information available regarding this patient. Last updated 18.[facility] Allergies Active Allergy Reactions Criticality Noted Date Comments Latex Swelling Low 08/26/2017 After dental procedure which only included x-rays next morning swelling around face and jaw with lips extremely swollen. Medications * Be aware that medications may not be up to date on this document. Alwaysverify current medications with the patient. Medication Sig Dispensed Refills Start Date End Date Status albuterol HFA (PROVENTIL;VENTOL IN;PROAIR) 108 (90 BASE) MCG/ACT inhaler Inhale 2 puffs by mouth every 6 hours as needed Active amiodarone (CORDARONE) 400 MG tablet Take 400 mg by mouth as directed Take 1 tablet twice daily for 3 days. Then take 1 tablet daily. Active aspirin (ASPIRIN) 81 MG chew tablet Take 81 mg by mouth once daily Active atorvastatin (LIPITOR) 20 MG tablet Take 20 mg by mouth once daily For 30 days Active budesonide-formot bekah (SYMBICORT) 160-4.5 MCG/ACT inhaler Inhale 2 puffs by mouth 2 times daily Active docusate sodium (COLACE) 100 MG capsule Take 100 mg by mouth once daily Active enoxaparin (LOVENOX) injection Inject 100 mg subcutaneously every 12 hours Active furosemide (LASIX) 20 MG tablet Take 20 mg by mouth once daily Active metoprolol tartrate (LOPRESSOR) 100 MG tablet Take 100 mg by mouth 2 times daily Active oxyCODONE-acetami nophen (PERCOCET) 5-325 MG tablet Take 1 tablet by mouth every 4 hours as needed for Pain Active polyethylene glycol 3350 (MIRALAX) packet Take 17 g by mouth once daily Active potassium chloride (KLOR-CON M) 10 MEQ tablet Take 10 mEq by mouth once daily 09/13/2017 Active warfarin (COUMADIN) 2.5 MG tablet Take 5 mg by mouth once daily Active metoprolol tartrate (LOPRESSOR) 25 MG tablet Take 25 mg by mouth BID. 60 tablet 3 09/20/2017 Active metoclopramide (REGLAN) 5 MG tablet Take 5 mg by mouth BID PRN. 120 tablet 0 09/20/2017 Active furosemide (LASIX) 20 MG tablet Take 20 mg by mouth QDAY PRN. 09/20/2017 Active amiodarone (CORDARONE) 200 MG tablet Take 200 mg by mouth DAILY. 30 tablet 3 09/21/2017 Active aspirin EC (ECOTRIN) 325 MG tablet Take 650 mg by mouth q8h. 100 tablet 2 09/20/2017 Active aspirin (ASPIRIN) 81 MG tablet Take 81 mg by mouth DAILY. 100 tablet 3 10/21/2017 Active Docusate Sodium (DSS) 100 MG Take 100 mg by mouth DAILY. 60 capsule 0 09/13/2017 Active polyethylene glycol 3350 (MIRALAX) packet Take 17 g by mouth DAILY. 30 packet 0 09/13/2017 Active oxyCODONE-acetami nophen (PERCOCET) 5-325 MG tablet Take 1 tablet by mouth q4h PRN. 30 tablet 0 09/13/2017 Active metoprolol tartrate (LOPRESSOR) 25 MG tablet Take 25 mg by mouth 09/20/2017 Activ e furosemide (LASIX) 20 MG tablet Take 20 mg by mouth 09/20/2017 Activ e aspirin EC (ECOTRIN) 325 MG tablet Take 650 mg by mouth 09/20/2017 Acti ve amiodarone (CORDARONE) 200 MG tablet Take 200 mg by mouth 09/21/2017 Acti ve dilTIAZem SR 24hr (DILACOR XR) 180 MG capsule 08/06/2017 Active XARELTO 20 MG tablet 08/06/2017 Active trandolapril (MAVIK) 4 MG tablet 09/17/2017 Active Active Problems Problem Noted Date Diagnosed Date Presence of prosthetic heart valve 09/20/2017 Overview (09/21/2017): Aortic Valve Replacement with 25mm Magna Ease Bioprosthetic Aortic Valve on 09-05-2017 Other specified postprocedural states 09/20/2017 Personal history of other di seases of the circulatory system 09/20/2017 Noninflammatory pericardial effusion 09/20/2017 Paroxysmal atrial fibrillation 09/20/2017 Overview (09/21/2017): S/P intra operative Maze on 09-05-2017 Acute pericarditis 09/17/2017 Cardiac tamponade 09/17/2017 Encounter for other specified special examinatio ns 09/13/2017 Uncomplicated asthma 09/13/2017 Essential (primary) hypertension 09/13/2017 Gastro-esophageal reflux disease without esophag itis 09/12/2017 Nonrheumatic mitral valve insufficiency 09/13/19 18 Overview (09/21/2017): Normal left ventricular size. Mild concentric left ventricular hypertrophy. There is akinesis of the apex and severe hypokinesis of the distal inferolateral wall with normal contractility in the remaining segments. Can not rule out apical thrombus. Ejection fraction is estimated to be 50 %. - Normal right ventricular and systolic function. - Right Ventricular Size. - Mild aortic root dilatation at level of the sinuses of Valsalva (4.4 cm).. - Calcified trileaflet aortic valve. Mild aortic regurgitation. Severe aortic stenosis with mean gradient of 46 mmHg, and calculated ORQUIDEA of 1.2 cm2. - Normal mitral valve structure and velocities. Mild mitral regurgitation. - Normal LV diastolic function. - Normal tricuspid valve structure and velocities. Trivial tricuspid regurgitation. Inadequate tricuspid regurgitation jet to estimate right ventricular systolic pressure. - Pulmonic valve not well seen. No pulmonary insufficiency or stenosis. - Mild left and right atrial enlargement. Diastolic congestive heart failure 09/12/2017 Overview (09/21/2017): Moderate with moderate/severe CLVH based on ANALISA done intra operatively on 09-05-2017 Social History Tobacco Use Types Packs/Day Years Used Date Smoking Tobacco: Former Cigarettes 1 19 0 09/06/1955 - 09/05/1974 Smokeless Tobacco: Never Alcohol Use Standard Drinks/Week Comments Yes 3 (1 standard drink = 0.6 oz pur e alcohol) Sex and Gender Information Value Date Recorded Sex Assigned at Not on file Gender Identity Not on file Sexual Orientation Not on file Last Filed Vital Signs Vital Sign Reading Time Taken Comments Blood Pressure 120/68 10/02/2017 9:35 AM CDT Pulse 67 10/02/2017 9:35 AM CDT Temperature 36.5 ??C (97.7 ??F) 09/20/2017 12:00 PM C DT Respiratory Rate 17 09/20/2017 1:00 PM CDT Oxygen Saturation 97% 10/02/2017 9:35 AM CDT Inhaled Oxygen Concentration - - Weight 93.9 kg (207 lb) 10/02/2017 9:35 AM CDT Height 167.6 cm (5' 6 ) 10/02/2017 9:35 AM CDT Body Mass Index 33.41 10/02/2017 9:35 AM CDT Plan of Treatment Not on file Procedures Procedure Name Priority Date/Time Associated Diagnosis Comments BASIC METABOLIC PANEL (CALCIUM TOTAL) Routine 09/20/2017 1:44 AM CDT from Last 3 Months or Most Recently Relevant to Health Maintenance Results * (ABNORMAL) BASIC METABOLIC PANEL (CALCIUM TOTAL) (09/20/2017 1:44 AM CDT) BUN 18 7 - 26 mg/dL [facility] Creatinine 1.0 0.6 - 1.2 mg/dL [facility] Sodium 137 136 - 145 mmol/L [facility] Potassium 4.5 3.5 - 4.5 mmol/L [facility] Chloride 104 98 - 107 mmol/L [facility] CO2 23 22 - 29 mmol/L [facility] Glucose 123(H) 70 - 115 mg/dL [facility] Calcium 8.1(L) 8.4 - 10.2 mg/dL [facility] Anion Gap 15 8 - 18 [facility] BUN/Creatinine Ratio 18 7 - 23 [facility] Osmolality Calculated 287 270 - 300 mOsm/kg [facility] eGFR >60 >60 mL/min/1.7 3 m2 [facility] Blood specimen (specimen) BLOOD SPECIMEN / Unknown 09/20/2017 1:44 AM CDT 09/20/2017 1:48 AM CDT Luis Kat MD LAB - CHEMISTRY ZAIDA HERNANDEZ [facility] [address] [phone] from Last 3 Months or Most Recently Relevant to Health Maintenance Advance Directives * Full Code (Latest Code Status on File) Date Activated Date Inactivated Comments 09/20/2017 11:00 AM 09/20/2017 5:11 PM * Full Code Date Activated Date Inactivated Comments 09/20/2017 11:00 AM 09/20/2017 11:00 AM Care Teams Special Effects Artist Relationship Specialty Start Date End Date Maureen Stephens MD [address] [place] [phone] PCP - General 08/27/17
--- OUTSIDE RECORDS SUMMARY | 2024-07-09 22:04 | XMS_ITS | Clinical Summary ---
Author Organization [facility] Address [address] [place] [address] Care Team Providers Care Analytical Tech Name Role Phone Maureen Stephens MD Primary Care Provider Source Comments [facility],non-[facility] Affiliates and Associated Physician Practices is amultiple site organization consisting of ambulatory clinics and hospital sitesin [place], [place], [place] and [place]. This disclosure is being madepursuant to the Care Everywhere program and may not contain all information available regarding this patient. Last updated 18.[facility] Allergies Active Allergy Reactions Criticality Noted Date [...] 10/02/2017 9:35 AM CDT Plan of Treatment Health Maintenance Due Date Last Done Comments MEDICARE AWV ? 12 MONTHS 1945 HEPATITIS C SCREENING 07/06/1965 DTAP/TDAP/TD VACCINES (1 - Tdap) 1966 PNEUMOCOCCAL VACCINE 50+ (1 of 2 - PCV) 1966 ZOSTER VACCINE (1 of 2) 1997 SCREENING FOR DIABETES 09/20/2020 8, 09/19/2017, 09/18/2017, Additional history exists Respiratory Syncytial Virus (RSV) Vaccine Pt: or over 60 yrs (1 - 1-dose 75+ series) 2022 COVID-19 VACCINE ( - season) 2024 INFLUENZA VACCINE (#1) 2024 DEPRESSION SCREENING 06/17/2024 HEPATITIS B VACCINE Aged Out No longe r eligible based on patient's age to complete this topic HIB VACCINE Aged Out No longer eligi ble based on patient's age to complete this topic HPV VACCINE Aged Out No longer eligi ble based on patient's age to complete this topic MENINGOCOCCAL (Group B) VACCINE Aged Out No longer eligible based on patient's age to complete this topic MENINGOCOCCAL VACCINE Aged Out No shiva zan eligible based on patient's age to complete this topic Procedures Procedure Name Priority Date/Time Associated Diagnosis Comments BASIC METABOLIC PANEL (CALCIUM TOTAL) Routine 09/20/2017 1:44 AM CDT from Last 3 Months or Most Recently Relevant to Health Maintenance Results * (ABNORMAL) BASIC METABOLIC PANEL (CALCIUM TOTAL) (09/20/2017 1:44 AM CDT) BUN 18 7 - 26 mg/dL [facility] Creatinine 1.0 0.6 - 1.2 mg/dL [facility] Sodium 137 136 - 145 mmol/L [facility] Potassium 4.5 3.5 - 4.5 mmol/L [facility] Chloride 104 98 - 107 mmol/L [facility] CO2 23 22 - 29 mmol/L [facility] Glucose 123(H) 70 - 115 mg/dL [facility] Calcium 8.1(L) 8.4 - 10.2 mg/dL [facility] Anion Gap 15 8 - 18 [facility] BUN/Creatinine Ratio 18 7 - 23 [facility] Osmolality Calculated 287 270 - 300 mOsm/kg [facility] eGFR >60 >60 mL/min/1.7 3 m2 [facility] Blood specimen (specimen) BLOOD SPECIMEN / Unknown 09/20/2017 1:44 AM CDT 09/20/2017 1:48 AM CDT Luis Kat MD LAB - CHEMISTRY ZAIDA HERNANDEZ [address] [phone] from Last 3 Months or Most Recently Relevant to Health Maintenance Advance Directives * Full Code (Latest Code Status on File) Date Activated Date Inactivated Comments 09/20/2017 11:00 AM 09/20/2017 5:11 PM * Full Code Date Activated Date Inactivated Comments 09/20/2017 11:00 AM 09/20/2017 11:00 AM Care Teams Analytical Tech Relationship Specialty Start Date End Date Maureen Stephens MD [address] [place] [phone] PCP - General 08/27/17
--- OUTSIDE RECORDS SUMMARY | 2024-07-09 22:04 | XMS_ITS | Data Portability ---
Author Organization [place] - [facility] OFFICE Address [address] [place] [id number] Care Team Providers Care Home Health Administrator Name Role Phone JOHNATHAN KELLY Primary Care Provider [phone] Assessment Encounter Date Assessment Date Assessment LastModified by Organization Details LastModified Time 08/13/2023 08/13/2023 Patient Examined by FENG Sifuentes, Also Documentation reviewed and approved by supervising physician les Not available 08/13/2023 11:06:05 09/19/2023 09/19/2023 Patient Examined by FENG Sifuentes, Also Documentation reviewed and approved by supervising physician gilbert Not available 09/18/2023 14:39:01 Plan of Treatment Reminders Order Date Submit Date Provider Last Modified By Organization Details Last Modified Time Details Appointments ESTABLISH ED PATIENT DETAILED 2024 09:00A M Quinn Moya i, MD Not available Not available Not available Lab None recorded. Referral None recorded. Procedures None recorded. Surgeries None recorded. Imaging None recorded. Medication Orders None recorded. Patient TargetsNo targets recorded. Patient Instructions Encounter Date Encounter Id Patient Instructions Last Modified By Organization Details Last Modified Time 08/13/2023 [id number] Exercise advised Low cholesterol diet advised Low sodium diet advised. [email or web address] Not available 08/13/2023 11:12:04 09/19/2023 [id number] Low cholesterol diet advised Low sodium diet advised. eyassin Not available 09/19/2023 11:08:23 Reason for Referral None Reported. Results Created Date Observation Date Name Description Value Unit Range Abnormal Flag Note LastModifiedBy Organization Detail LastModifiedTime 07/09/1907/05/2022 elect kam castaneda am No observ ation record ed. [email or web address] Not Available 2022 14:14:01 08/01/19 23 07/18/2022 US, echoc ardio gram No observ ation record ed. [email or web address] Not Available 2022 14:52:25 08/21/19 24 08/13/2023 elect rocar diogr am No observ ation record ed. [email or web address] Not Available 2023 12:35:45 08/28/19 24 08/20/2023 colby can cardi olite stres s test (PROC ) No observ ation record ed. Not Available 2023 10:16:02 09/10/19 24 09/04/2023 US, echoc ardio gram No observ ation record ed. [facility], [facility] [address] [address], [place], [address], 09/10/2023 12:35:25 10/09/19 24 09/11/2023 US, carot id arter y No observ ation record ed. Not Available 2023 15:26:44 03/18/20 24 03/17/2024 elect rocar diogr am No observ ation record ed. Not Available 2023 09:02:54 Result Notes None recorded. Problems Name Problem SNOMED Code Status Onset Date Resolution Date Notes Provider Name and Address Organization Details Recorded Time Coronary arterios clerosis 69579335 Active 2017 [place], [place] - [facility] 8 13:16:34 Benign essentia l hyperten fatimah 3324702 Active 2017 [place] [facility] 8 13:18:21 Hyperlip idemia 51139435 Active 201708/05/17: TC 139, HDL 35, Tr i121, LDL 81 [place] [facility] 8 21:07:56 Congesti ve heart failure 48988641 Active 2017 [place] [facility] 8 13:18:33 Atrial fibrilla tion 90333751 Completed 201710/24/2017 Joanna [place]cas[place], [place] [facility] 8 21:08:02 Bicuspid aortic valve 31843323 Active 2017 Gage [place], [place] [facility] 8 13:19:58 Aortic valve regurgit ation 33483454 Active 2017 moderate Joanna [place] [facility] 8 21:13:59 Paroxysm al atrial fibrilla tion 808469833 Active 2017 CHADs score of 1 Joanna [place] [facility] 8 21:13:19 Diastoli c dysfunct ion 3450191 Active 2017 moderate, grade 3 Joanna [place] [facility] 8 21:14:17 Pulmonar y hyperten fatimah 64150514 Active 2017 moderate Joanna [place] [facility] 8 21:12:29 Aortic valve stenosis 22876816 Active 2017 moderate Joanna [place] [facility] 8 21:14:55 Obstruct saida sleep apnea syndrome 50100117 Active 2017 Gage T[place] [facility] 8 08:54:35 Pre-surg ele evaluati on Active 2017 Quinn Moya i, MD [address] [place], [address] [place] [address] [facility] 8 11:48:26 Dizzines s 939375868 Active 2018 Joanna [place]cas[place] [facility] 9 16:02:35 Problem Notes None recorded. Procedures Surgical History None recorded. Imaging Results Imaging Date Name Status LastModified by Organization Details LastModified Time 07/05/2022 electrocardiogram completed [email or web address] Informa tion not available 07/09/2022 14:14:01 07/18/2022 US, echocardiogram completed [email or web address] Inform ation not available 01/31/2023 14:52:25 08/20/2023 lexiscan cardiolite stress test (PROC) completed Information not available 08/28/2023 10:16:02 09/04/2023 US, echocardiogram completed [facility], [facility] [address] [facility] [address], [place], [address], 09/10/2023 12:35:25 08/13/2023 electrocardiogram completed [email or web address] Informa tion not available 09/10/2023 12:35:45 09/11/2023 US, carotid artery completed Inform ation not available 10/09/2023 15:26:44 03/17/2024 electrocardiogram completed Informa tion not available 03/18/2024 09:02:54 Procedure Notes None recorded. Medical Equipment None Reported. Allergies No known drug allergies Medications Name Sig Start Date Stop Date Status Note LastModified by Organization Details LastModified Time losartan 50 mg tablet TAKE 1 TABLET BY MOUTH ONCE DAILY 03/14 completed Not Available Not Available Not Available amoxicilli n 500 mg capsule TAKE 4 CAPSULES BY MOUTH 1 HOUR PRIOR TO APPOINTM ENT 09/18 completed Not Available Not Available Not Available atorvastat in 20 mg tablet TAKE 1 TABLET BY MOUTH ONCE DAILY active Not Available Not Available No t Available trandolapr il 4 mg tablet Take 1 tablet every day by oral route for 30 days. 01/09 completed Not Available Not Available Not Available azithromyc in 250 mg tablet TAKE 2 TABLETS BY MOUTH ON DAY 1, AND THEN TAKE 1 TABLET BY MOUTH ONCE A DAY ON DAY 2 THROUGH DAY 5 02/02 completed no longer take 07/05/22 mb Not Available Not Available Not Available aspirin 325 mg tablet Take 1 tablet every day by oral route. 08/30 completed pt not taking 08/30/20 Not Available Not Available Not Available metoprolol tartrate 100 mg tablet 10/29 completed Not Available Not Available Not Available flurbiprof en 0.03 % eye drops INSTILL 1 DROP INTO THE SURGICAL EYE THREE TIMES DAILY BEGINNIN G 2 DAYS PRIOR TO SURGERY, CONTINUI NG FOR 2 WEEKS AFTER 03/17 completed Not Available Not Available Not Available warfarin 2.5 mg tablet 10/28 completed Not Available Not Available Not Available ciprofloxa oli 500 mg tablet 08/05 completed Not Available Not Available Not Available oxycodone- acetaminop hen 5 mg-325 mg tablet 01/09 completed Not Available Not Available Not Available prednisolo ne acetate 1 % eye drops,susp ension INSTILL 1 DROP TO THE AFFECTED EYE(S) THREE TIMES DAILY AND CONTINUE FOR 3 WEEKS 03/17 completed Not Available Not Available Not Available amiodarone 400 mg tablet Take 0.5 tablets every day by oral route for 27 days. 01/09 completed Not Available Not Available Not Available ciprofloxa oli 0.3 % eye drops INSTILL 1 DROP INTO THE SURGICAL EYE THREE TIMES DAILY BEGINNIN G 2 DAYS PRIOR TO SURGERY, CONTINUI NG FOR 1 WEEK AFTER 03/17 completed Not Available Not Available Not Available pantoprazo le 40 mg tablet,del ayed release 01/09 completed Not Available Not Available Not Available aspirin 81 mg tablet Take 1 tablet every day by oral route. 09/17 completed Not Available Not Available Not Available furosemide 20 mg tablet 10/28 completed Not Available Not Available Not Available methylpred nisolone 4 mg tablets in a dose pack TAKE BY MOUTH DIRECTED ON INSIDE OF PACKAGE 03/17 completed Not Available Not Available Not Available losartan 50 mg-hydroch lorothiazi de 12.5 mg tablet TAKE 1 TABLET BY MOUTH ONCE DAILY active Not Available Not Available No t Available metformin ER 500 mg tablet,ext ended release 24 hr TAKE 2 TABLETS BY MOUTH ONCE DAILY active Not Available Not Available No t Available diltiazem ER (XR/XT) 180 mg capsule,ex tended release 24 hr, controlled Take 1 capsule every day by oral route for 30 days. 10/28 completed Not Available Not Available Not Available Ventolin HFA 90 mcg/actuat ion aerosol inhaler INHALE 2 PUFFS BY MOUTH 4 TIMES DAILY NEEDED active Not Available Not Available No t Available enoxaparin 100 mg/mL subcutaneo us syringe 10/28 completed Not Available Not Available Not Available potassium chloride ER 10 mEq tablet,ext ended release(pa rt/cryst) 10/28 completed Not Available Not Available Not Available metoprolol tartrate 25 mg tablet TAKE 1 TABLET BY MOUTH TWICE DAILY active Not Available Not Available No t Available Lipitor 20 mg 1 @bedtime 03/03 completed Not Available Not Available Not Available Symbicort 160 mcg-4.5 mcg/actuat ion HFA aerosol inhaler INHALE 2 PUFFS BY MOUTH TWICE DAILY 03/17 completed Not Available Not Available Not Available peg 3350 240 gram-elect rolytes 22.72 gram-6.72 g-5.84 g powdr for soln 08/05 completed Not Available Not Available Not Available Vitamin D 2,000 unit capsule Take 1 capsule every day by oral route in the morning. 09/17 completed Not Available Not Available Not Available Xarelto 20 mg tablet Take 1 tablet every day by oral route for 30 days. 10/28 completed Not Available Not Available Not Available Jardiance 10 mg tablet Take 1 tablet every day by oral route. 2021 active Not Available Not Available Not Avai lable Adult Aspirin Regimen 81 mg tablet,del ayed release Take 1 tablet every day by oral route. active Not Available Not Available No t Available metoprolol succinate ER 25 mg capsule sprinkle, ext. release 24 hr Take 1 capsule twice a day by oral route. 11/18 completed Not Available Not Available Not Available Wixela Inhub 100 mcg-50 mcg/dose powder for inhalation Inhale 1 puff twice a day by inhalati on route. active Not Available Not Available No t Available Vitals Date Recorded Body height Body mass index (BMI) Body weight Heart rate Oxygen saturation Oxygen saturation in Arterial blood by Pulse oximetry Systolic blood pressure Diastolic blood pressure Provider Name and Address Organization Details Last Updated DateTime 3 170.18 cm 37.6 kg/m2 162478. 17 g 48 /min 98 % 98 % 140 mm[Hg] 72 mm[Hg] Deysi Saúl [facility] 3 11:39:34 Date Recorded Body height Body mass index (BMI) Body weight Heart rate Respiratory rate Oxygen saturation Oxygen saturation in Arterial blood by Pulse oximetry Systolic blood pressure Diastolic blood pressure Provider Name and Address Organization Details Last Updated DateTime 3 170.18 cm 37.9 kg/m2 160674. 35 g 64 /min 16 /min 94 % 94 % 126 mm[Hg] 68 mm[Hg] Adri Gonzalez [facility] 3 11:35:21 Date Recorded Body height Body mass index (BMI) Body weight Heart rate Oxygen saturation Oxygen saturation in Arterial blood by Pulse oximetry Systolic blood pressure Diastolic blood pressure Provider Name and Address Organization Details Last Updated DateTime 4 170.18 cm 37.3 kg/m2 707399. 98 g 56 /min 98 % 98 % 150 mm[Hg] 70 mm[Hg] Martina Galvin [facility] 4 10:41:19 Date Recorded Body height Body mass index (BMI) Body weight Heart rate Oxygen saturation Oxygen saturation in Arterial blood by Pulse oximetry Systolic blood pressure Diastolic blood pressure Provider Name and Address Organization Details Last Updated DateTime 4 170.18 cm 37.9 kg/m2 268563. 64 g 53 /min 99 % 99 % 126 mm[Hg] 62 mm[Hg] Martina Kamar [facility] 4 10:44:12 Date Recorded Body height Body mass index (BMI) Body weight Oxygen saturation Oxygen saturation in Arterial blood by Pulse oximetry Heart rate Systolic blood pressure Diastolic blood pressure Provider Name and Address Organization Details Last Updated DateTime 4 170.18 cm 36.3 kg/m2 486615. 43 g 97 % 97 % 52 /min 128 mm[Hg] 60 mm[Hg] Jelena Kraus [facility] 4 10:37:14 Social History Question Answer Notes LastModified by Organizat ion Details LastModified Time Tobacco Smoking Status Never Smoker Not Available [facility] 04/19/2020 03:30:42 Do You Or Have You Ever Used E-cigarettes Or Vape? Never Used Electronic Cigarettes [id number] Information not available 04/19/2020 What Was The Date Of Your Most Recent Tobacco Screening? 07/10/2018 [id number] Information not available 04/19/2020 Do You Or Have You Ever Used Smokeless Tobacco? Never Used Smokeless Tobacco [id number] Information not available 04/19/2020 How Much Tobacco Do You Smoke? No [id number] Information not available 04/19/2020 How Many Years Have You Smoked Tobacco? 0 [id number] Information not available 04/19/2020 Sex: Unknown Functional Status None recorded. Mental Status None recorded. Family History Nothing Reported. Medical History Condition Response Coronary Artery Disease Y Atrial Fibrillation Y Congestive Heart Failure (CHF) Y Valvular Heart Disease Y Hyperlipidemia Y Hypertension Y Past Encounters Encounter ID Performer Location Encounter Start Date Encounter Closed Date Diagnosis/Indication Diagnosis SNOMED-CT Code Diagnosis ICD10 Code Diagnosis Note [id number] MD [facility] [address] [place] [address] 08/08/2017 11:54:16 08/08/2017 13:25:14 Paroxysmal atrial fibrillation 833827544 I48.0 now on Cardizem and Xarelto Bicuspid aortic valve 72 401003 Q23.1 with , and [place], will arrange for possible TAVR [id number] MD [facility] [address] [place] [address] 10/28/2017 10:23:20 10/30/2017 15:44:18 Paroxysmal atrial fibrillation 070900010 I48.0 s/p MAZE procedure. On full dose ASA.CHADs score of 1 Bicuspid aortic valve 72 217669 Q23.1 s/p AVR Benign ess ential hypertension 9595541 I10 Relatively well controlled on current regimen Hyperlipidemia 25983150 E78.5 Needs to keep LDL less than 70, and HDL more than 40 08/05/17: TC 139, HDL 35, Tri 121, LDL 81 Continue Lipitor Pulmonary hypertension 87561390 I27.20 Moderate Obstructiv e sleep apnea syndrome 39295594 G47.33 Home sleep study [id number] MD [facility] [address] [place] [address] 01/09/2018 11:25:25 01/09/2018 12:12:30 Paroxysmal atrial fibrillation 182447734 I48.0 s/p MAZE procedure. On full dose ASA.CHADs score of 1 Bicuspid aortic valve 72 643479 Q23.1 s/p AVR Benign ess ential hypertension 8403298 I10 Relatively well controlled on current regimen Hyperlipidemia 56813230 E78.5 Needs to keep LDL less than 70, and HDL more than 40 08/05/17: TC 139, HDL 35, Tri 121, LDL 81 Continue Lipitor Pulmonary hypertension 28277731 I27.20 Moderate Will consider sleep study 11/06/17 ECHO: LV chamber size is normal. There is normal global systolic function and contractil ity. There is a well seated bioprosthe tic aortic valve with normal with normal function. AV mean gradient : 18.2 mmHg. AV peak gradient: 28.35 mmHg. There is trace tricuspid regurgitat ion. Obstructiv e sleep apnea syndrome 38923487 G47.33 Home sleep study - not done Pre-surger y evaluation 645376294 Z01.818 Pt is scheduled for Colonoscop y on 01/30/18. [id number] MD [facility] [address] [place] [place] [address] 07/10/2018 10:05:08 07/10/2018 10:44:26 Paroxysmal atrial fibrillation 350327897 I48.0 s/p MAZE procedure. On full dose ASA.CHADs score of 1 Bicuspid aortic valve 72 841357 Q23.1 s/p AVR Benign ess ential hypertension 5980524 I10 Relatively well controlled on current regimen Hyperlipidemia 80903106 E78.5 Needs to keep LDL less than 70, and HDL more than 40Will get fating lipids for follow up Pulmonary hypertension 19883137 I27.20 Moderate Will consider sleep study 11/06/17 ECHO: LV chamber size is normal. There is normal global systolic function and contractil ity. There is a well seated bioprosthe tic aortic valve with normal with normal function. AV mean gradient : 18.2 mmHg. AV peak gradient: 28.35 mmHg. There is trace tricuspid regurgitat ion. Obstructiv e sleep apnea syndrome 07181581 G47.33 Home sleep study - not done [id number] Quinn Conroy MD [place] [facility] [address] [place] [address] 08/05/2018 15:13:35 08/05/2018 16:13:50 Paroxysmal atrial fibrillation 452628279 I48.0 s/p MAZE procedure. On full dose ASA. He had bleeding with Xarelto. Has not had any recurrent bleeding events. Bicuspid aortic valve 72 312039 Q23.1 s/p AVR Benign ess ential hypertension 2231297 I10 Blood pressure is slightly elevated today but this is only one reading. Will keep close follow up and consider medication change if blood pressure remains elevated by next visit. Hyperlipidemia 01133919 E78.5 Needs to keep LDL less than 70, and HDL more than 40Will get fating lipids for follow upLDL 80 Pulmonary hypertension 04647069 I27.20 Moderate Will consider sleep study 11/06/17 ECHO: LV chamber size is normal. There is normal global systolic function and contractil ity. There is a well seated bioprosthe tic aortic valve with normal with normal function. AV mean gradient : 18.2 mmHg. AV peak gradient: 28.35 mmHg. There is trace tricuspid regurgitat ion. Obstructiv e sleep apnea syndrome 81381462 G47.33 Home sleep study - not done Dizziness 567677804 [place] [id number] Quinn Conroy MD [place] [facility] [address] [place] [address] 11/04/2018 14:44:33 11/04/2018 15:05:58 Dizziness 295020123 R42 Echo fu Paroxysmal atrial fibrillation 770104978 I48.0 s/p MAZE procedure. On full dose ASA. He had bleeding with Xarelto. Has not had any recurrent bleeding events. Bicuspid aortic valve 72 915213 Q23.1 s/p AVR Benign ess ential hypertension 4490810 I10 Blood pressure is slightly elevated today but this is only one reading. Will keep close follow up and consider medication change if blood pressure remains elevated by next visit. Hyperlipidemia 93591795 E78.5 Needs to keep LDL less than 70, and HDL more than 40Will get fating lipids for follow upLDL 80 Pulmonary hypertension 25716344 I27.20 Better now Obstructiv e sleep apnea syndrome 71477931 G47.33 Home sleep study - not done [id number] Taylor Menjivar [place] [facility] [address] [place] [address] 04/28/2019 14:38:40 04/28/2019 17:51:23 Paroxysmal atrial fibrillation 685619922 I48.0 s/p MAZE procedure. in Sinus rhythm today.On full dose ASA. He had bleeding with Xarelto. Has not had any recurrent bleeding events. Bicuspid aortic valve 72 021096 Q23.1 s/p AVR. Asymptomat ic 08/25/18 ECHO: LV chamber size is normal. LV wall thickness is moderately increased. The estimated left ventricle ejection fraction is 50-55%(nor mal). LV relaxation is normal. Left atrium chamber is mildly to moderately dilated. There is a mildly stenotic aortic valve bioprosthe sis with an elevated transvalvu lar gradient. There is a bioprosthe tic aortic valve with trace regurgitat ion. There is physiologi c tricuspid valve regurgitat ion. Benign ess ential hypertension 2041408 I10 Blood pressure is elevated today. He contribute s that to stress at work right before coming to appointmen t. His BP was also elevated last visit. I discussed with patient starting HCTZ. He would like to continue exercise and weight loss without starting any new medication s. He also states that he will start checking his BP at work at home. Hyperlipidemia 46281507 E78.5 Needs to keep LDL less than 70, and HDL more than 40Will get fating lipids for follow upLDL 80 Pulmonary hypertension 84664894 I27.20 Better now Obstructiv e sleep apnea syndrome 31329635 G47.33 Home sleep study - not done [id number] Quinn Conroy MD [place] [facility] [address] [place] [address] 10/20/2019 15:41:37 10/20/2019 17:02:32 Bicuspid aortic valve 17717250 Q23.1 s/p AVR. Asymptomat ic 08/25/18 ECHO: LV chamber size is normal. LV wall thickness is moderately increased. The estimated left ventricle ejection fraction is 50-55%(nor mal). LV relaxation is normal. Left atrium chamber is mildly to moderately dilated. There is a mildly stenotic aortic valve bioprosthe sis with an elevated transvalvu lar gradient. There is a bioprosthe tic aortic valve with trace regurgitat ion. There is physiologi c tricuspid valve regurgitat ion. Paroxysmal atrial fibrillation 624618277 I48.0 s/p MAZE procedure. in Sinus rhythm today.On full dose ASA. He had bleeding with Xarelto. Has not had any recurrent bleeding events. Benign ess ential hypertension 8671910 I10 Will start Losartan 50mg daily (10/20/2019) . Low salt diet. Blood pressure dairy. Hyperlipidemia 49497740 E78.5 Needs to keep LDL less than 70, and HDL more than 40 09/18/18: TC 126 ,TG 75, HDL 52 ,LDL 58, Pulmonary hypertension 20891200 I27.20 Better now Obstructiv e sleep apnea syndrome 73749201 G47.33 Home sleep studyHe has leg swelling, fatigue, and snoring [id number] Quinn Conroy MD [place] [facility] [address] [place] [address] 01/19/2020 16:11:37 01/19/2020 17:01:33 Bicuspid aortic valve 59901549 Q23.1 s/p AVR (2018) Stable, asymptomat ic ECHO 08/17/2019 showed LV systolic function is mildly reduced,EF 45-50%, diastolic function is indetermin ate due to atrial fibrillati on,left atrium chamber is mildly dilated ,right atrium chamber is mildly dialted,th e aortic valve is mildly calcified, there is minimal aortic regurgitat ion,the mitral valve lealfet is mildly thickened, there is mild mitral regurgitat ion,there is mild tricuspid regurgitat ion,there is mild pulmonary hypertensi on,mild elevation of estimated RV systolic pressure,e stimated RVSP systolic pressure is 37 mmHg,there is mild pulmonic regurgitat ion,atrial fibrillati on. Paroxysmal atrial fibrillation 400481974 I48.0 s/p MAZE (2018)Stab le, asymptomat ic.on full dose ASA, previously had bleeding with Xarelto.Ra te controlled with metoprolol Benign ess ential hypertension 4366046 I10 Well controlled Hyperlipidemia 67858411 E78.5 Needs to keep LDL less than 70, and HDL more than 40 09/18/2018 LDL 58 Continue atorvastat in Will get fasting lipids for follow-up Pulmonary hypertension 64405497 I27.20 Stable, improved. Obstructiv e sleep apnea syndrome 65340852 G47.33 Compliant with nightly CPAP use Coronary arteriosclerosis 45819825 I25.10 Stable, asymptomat ic. [facility] 04/22/2017: mild CAD [id number] Taylor Menjivar [place] [facility] [address] [place] [address] 08/30/2020 15:37:32 08/31/2020 08:58:25 Bicuspid aortic valve 63095353 Q23.1 s/p bioprosthe tic AVR (2017)on ASA Echo 08/17/2019 : LV systolic function is mildly reduced. EF 45-50%. Diastolic function is indetermin ate due to atrial fibrillati on. Left atrium chamber is mildly dilated. Right atrium chamber is mildly dilated. The aortic valve is mildly calcified. There is minimal aortic regurgitat ion. The mitral valve leaflet is mildly thickened. There is mild mitral regurgitat ion. There is mild tricuspid regurgitat ion. There is mild pulmonary hypertensi on. Mild elevation of estimated RV systolic pressure. Estimated RVSP systolic pressure is 37mmHg. There is mild pulmonic regurgitat ion. Paroxysmal atrial fibrillation 130142252 I48.0 s/p MAZE (2018)CHA2 DS2-VASc score = 2Stable, asymptomat ic.on full dose ASA, previously had bleeding with Xarelto.Ra te controlled with metoprolol Benign ess ential hypertension 4975302 I10 Well controlled Hyperlipidemia 11724678 E78.5 Needs to keep LDL less than 70, and HDL more than 40 09/18/2018 LDL 58 Continue atorvastat in Will get fasting lipids for follow-up Pulmonary hypertension 24763131 I27.20 Mild Obstructiv e sleep apnea syndrome 09101541 G47.33 Compliant with nightly CPAP use Coronary arteriosclerosis 86259282 I25.10 Stable, asymptomat ic.[facility] 08/08/2017 : mild CAD [id number] Quinn Conroy MD [place] [facility] [address] [place] [address] 02/28/2021 09:47:56 02/28/2021 10:36:53 Bicuspid aortic valve 43810489 Q23.1 s/p bioprosthe tic AVR (2018)on ASA Echo 08/17/2019 : LV systolic function is mildly reduced. EF 45-50%. Diastolic function is indetermin ate due to atrial fibrillati on. Left atrium chamber is mildly dilated. Right atrium chamber is mildly dilated. The aortic valve is mildly calcified. There is minimal aortic regurgitat ion. The mitral valve leaflet is mildly thickened. There is mild mitral regurgitat ion. There is mild tricuspid regurgitat ion. There is mild pulmonary hypertensi on. Mild elevation of estimated RV systolic pressure. Estimated RVSP systolic pressure is 37mmHg. There is mild pulmonic regurgitat ion. Paroxysmal atrial fibrillation [id number] I48.0 s/p MAZE (2018)CHA2 DS2-VASc score = 2Stable, asymptomat ic.on full dose ASA, previously had bleeding with Xarelto.Ra te controlled with metoprolol Benign ess ential hypertension 2051805 I10 Blood pressure is elevated today, but this is only one reading, will keep close follow up, and consider medication change if blood pressure is still elevated next visit. Hyperlipidemia 67014037 E78.5 Needs to keep LDL less than 70, and HDL more than 40 09/18/2018 LDL 58 Continue atorvastat in Will get fasting lipids for follow-up Pulmonary hypertension 75417219 I27.20 Mild Obstructiv e sleep apnea syndrome 91611073 G47.33 Compliant with nightly CPAP use Coronary arteriosclerosis 34604539 I25.10 Stable, asymptomat ic.[facility] 08/08/2017 : mild CAD [id number] Quinn Conroy MD [facility] [address] [place] [address] 05/30/2021 09:42:56 05/30/2021 10:35:29 Bicuspid aortic valve 17241245 Q23.1 s/p bioprosthe tic AVR (2018)on ASA Echo 08/17/2019 : LV systolic function is mildly reduced. EF 45-50%. Diastolic function is indetermin ate due to atrial fibrillati on. Left atrium chamber is mildly dilated. Right atrium chamber is mildly dilated. The aortic valve is mildly calcified. There is minimal aortic regurgitat ion. The mitral valve leaflet is mildly thickened. There is mild mitral regurgitat ion. There is mild tricuspid regurgitat ion. There is mild pulmonary hypertensi on. Mild elevation of estimated RV systolic pressure. Estimated RVSP systolic pressure is 37mmHg. There is mild pulmonic regurgitat ion. Paroxysmal atrial fibrillation 690613677 I48.0 s/p MAZE (2018)CHA2 DS2-VASc score = 2Stable, asymptomat ic. on full dose ASA, previously had bleeding with Xarelto. Rate controlled with metoprolol nsr TODAY 12=13=21 rATE 51 Benign ess ential hypertension 2487173 I10 Blood pressure is elevated today, but this is only one reading, will keep close follow up, and consider medication change if blood pressure is still elevated next visit. 142/52 Hyperlipidemia 95901865 E78.5 Needs to keep LDL less than 70, and HDL more than 40 09/18/2018 LDL 58 Continue atorvastat in Will get fasting lipids for follow-up Pulmonary hypertension 83176068 I27.20 Mild Obstructiv e sleep apnea syndrome 28646366 G47.33 Compliant with nightly CPAP use Coronary arteriosclerosis 01466643 I25.10 Treadmill Myoview Stress test, has high Paradise Risk score. Has Known CAD, or CAD risk equivalent . To look for any ischemia. Atypical chest pain 1025 18720 R07.89 Treadmill Myoview Stress test, has high Paradise Risk score. Has Known CAD, or CAD risk equivalent . To look for any ischemia. [id number] Quinn Conroy MD [facility] [place] [address] 12/08/2021 08:42:02 12/08/2021 09:41:09 Bicuspid aortic valve 14216954 Q23.1 s/p bioprosthe tic AVR (2018)on ASA Echo 08/17/2019 : LV systolic function is mildly reduced. EF 45-50%. Diastolic function is indetermin ate due to atrial fibrillati on. Left atrium chamber is mildly dilated. Right atrium chamber is mildly dilated. The aortic valve is mildly calcified. There is minimal aortic regurgitat ion. The mitral valve leaflet is mildly thickened. There is mild mitral regurgitat ion. There is mild tricuspid regurgitat ion. There is mild pulmonary hypertensi on. Mild elevation of estimated RV systolic pressure. Estimated RVSP systolic pressure is 37mmHg. There is mild pulmonic regurgitat ion. Paroxysmal atrial fibrillation 139482132 I48.0 s/p MAZE (2018)CHA2 DS2-VASc score = 2Stable, asymptomat ic. on full dose ASA, previously had bleeding with Xarelto. Rate controlled with metoprolol nsr TODAY 12=13=21 rATE 51 Benign ess ential hypertension 9367356 I10 Now well controlled Hyperlipidemia 12718904 E78.5 Needs to keep LDL less than 70, and HDL more than 40 09/18/2018 LDL 58 Continue atorvastat in Will get fasting lipids for follow-up Pulmonary hypertension 36165576 I27.20 Mild Obstructiv e sleep apnea syndrome 54169311 G47.33 Compliant with nightly CPAP use Coronary arteriosclerosis 98543956 I25.10 Treadmill Myoview Stress test was negative Type 2 braulio betes mellitus without complication 086453097 E11.9 treatment and evaluation by primary care doctor [id number] MD [facility] [address] [place] [address] 07/05/2022 10:48:16 07/05/2022 12:06:43 Bicuspid aortic valve 07339879 Q23.1 s/p bioprosthe tic AVR (2018)on ASA Obtain echo to evaluate for structural /functiona l disease. Paroxysmal atrial fibrillation 387916559 I48.0 s/p MAZE (2018)CHA2 DS2-VASc score = 2Stable, asymptomat ic. on full dose ASA, previously had bleeding with Xarelto. Rate controlled with metoprolol NSR TODAY RATE 51 Benign ess ential hypertension 8281233 I10 Now well controlled Hyperlipidemia 26792102 E78.5 Needs to keep LDL less than 70, and HDL more than 40 09/18/2018 LDL 58 Continue atorvastat in Will get fasting lipids for follow-up Pulmonary hypertension 65115857 I27.20 Mild Obstructiv e sleep apnea syndrome 21701730 G47.33 Compliant with nightly CPAP use Coronary arteriosclerosis 16645503 I25.10 Treadmill Myoview Stress test was negative Type 2 braulio betes mellitus without complication 428115395 E11.9 treatment and evaluation by primary care doctor [id number] Quinn Conroy MD [facility] [address] [place] [address] 02/02/2023 11:16:03 02/02/2023 11:48:46 Bicuspid aortic valve 64195758 Q23.1 s/p bioprosthe tic AVR (2018)on ASA Paroxysmal atrial fibrillation 343531651 I48.0 s/p MAZE (2018)CHA2 DS2-VASc score = 2Stable, asymptomat ic. on full dose ASA, previously had bleeding with Xarelto. Rate controlled with metoprolol NSR TODAY RATE 51 Benign ess ential hypertension 2344510 I10 Now well controlled Hyperlipidemia 94320896 E78.5 Needs to keep LDL less than 70, and HDL more than 40 09/18/2018 LDL 58 Continue atorvastat in Will get fasting lipids for follow-up Pulmonary hypertension 63487646 I27.20 Mild Obstructiv e sleep apnea syndrome 54886569 G47.33 Compliant with nightly CPAP use Coronary arteriosclerosis 58794760 I25.10 Treadmill Myoview Stress test was negative Type 2 braulio betes mellitus without complication 681296553 E11.9 treatment and evaluation by primary care doctor [id number] [facility] [address] [place] [address] 08/13/2023 10:23:45 08/13/2023 11:21:11 Bicuspid aortic valve 63465139 Q23.1 will repeat echo s/p bioprosthe tic AVR (2018)on ASA Paroxysmal atrial fibrillation 595058491 I48.0 s/p MAZE (2018)CHA2 DS2-VASc score = 2Stable, asymptomat ic. on baby ASA, and Xarelto. Rate controlled with metoprolol NSR TODAY RATE 55 Benign ess ential hypertension 5939574 I10 Blood pressure is elevated today 180/100, but this is only one reading, will keep close follow up, and consider medication change if blood pressure is still elevated next visit. Hyperlipidemia 03123732 E78.5 Needs to keep LDL less than 70, and HDL more than 40*Last LDL was 73 done on 08/15/21.P t takes atorvastat in 20 mg. Will get fasting lipids for follow-up Pulmonary hypertension 77499323 I27.20 Mild Obstructiv e sleep apnea syndrome 81810704 G47.33 Compliant with nightly CPAP use Coronary arteriosclerosis 30922306 I25.10 Treadmill Myoview Stress test, has high Paradise Risk score. Has Known CAD, or CAD risk equivalent . To look for any ischemia. Treadmill Myoview Stress test was negative Type 2 braulio betes mellitus without complication 518100978 E11.9 treatment and evaluation by primary care doctor Carotid ar carlos stenosis 81210283 I65.29 repeat his [place] [id number] [facility] [address] [place] [address] 09/19/2023 10:38:56 09/19/2023 11:09:53 Bicuspid aortic valve 55624750 Q23.1 US, echocardio gramECHO 09/04/23:L V chamber size is normal,LVE F 50-55%, The aortic valve is not well visualized , there is mild stenotic aortic valve bioprosthe sis with an elevated transvalvu lar gradient, there is mild calcificat ion of mitral valve posterior leaflet,th ere is trace tricupsid regurgitat ion, the inferior vena cava is not visualized .sinus bradycardi a s/p bioprosthe tic AVR (2018)on ASA Paroxysmal atrial fibrillation 011860086 I48.0 s/p MAZE (2018)CHA2 DS2-VASc score = 2Stable, asymptomat ic. on baby ASA for now as he has a MAZE procedure Rate controlled with metoprolol NSR TODAY RATE 55 Benign ess ential hypertension 8783942 I10 well controlled today Hyperlipidemia 59273048 E78.5 Needs to keep LDL less than 70, and HDL more than 40*Last LDL was 75 done on 06/03/23.P t takes atorvastat in 20 mg. Pulmonary hypertension 92620308 I27.20 Mild Obstructiv e sleep apnea syndrome 37784316 G47.33 Compliant with nightly CPAP use Coronary arteriosclerosis 26121893 I25.10 negative stress test 2023 Treadmill Myoview Stress test was negative Type 2 braulio betes mellitus without complication 862278503 E11.9 treatment and evaluation by primary care doctor Carotid ar carlos stenosis 83194158 I65.29 mild disease per his last 2023*Last LDL was 75 done on 06/03/23.P t takes atorvastat in 20 mg.will consider increasing his dose if LDL is Above 70 , he is willing to do diet modificati on [id number] Quinn Conroy MD [facility] [address] [place] [address] 03/17/2024 10:21:19 03/17/2024 11:13:00 Bicuspid aortic valve 21818427 Q23.1 US, echocardio gramECHO 09/04/23:L V chamber size is normal,LVE F 50-55%, The aortic valve is not well visualized , there is mild stenotic aortic valve bioprosthe sis with an elevated transvalvu lar gradient, there is mild calcificat ion of mitral valve posterior leaflet,th ere is trace tricupsid regurgitat ion, the inferior vena cava is not visualized .sinus bradycardi a s/p bioprosthe tic AVR (2018)on ASA Paroxysmal atrial fibrillation 810099086 I48.0 s/p MAZE (2018)CHA2 DS2-VASc score = 2Stable, asymptomat ic. on baby ASA for now as he has a MAZE procedure Rate controlled with metoprolol NSR TODAY RATE 55 Benign ess ential hypertension 1558733 I10 well controlled today Hyperlipidemia 41585906 E78.5 Needs to keep LDL less than 70, and HDL more than 40*Last LDL was 55 done on 06/03/23.P t takes atorvastat in 20 mg. Pulmonary hypertension 88282010 I27.20 Mild Obstructiv e sleep apnea syndrome 21718248 G47.33 Compliant with nightly CPAP use Coronary arteriosclerosis 39099911 I25.10 negative stress test 2023 Treadmill Myoview Stress test was negative Type 2 braulio betes mellitus without complication 741803652 E11.9 treatment and evaluation by primary care doctor Carotid ar carlos stenosis 06361709 I65.29 mild disease per his last 2023*Last LDL was 55 done on 06/03/23.P t takes atorvastat in 20 mg.will consider increasing his dose if LDL is Above 70 , he is willing to do diet modificati on Health Concerns Section Related Observation LastModified by Organization Detai ls LastModified Time None Recorded Concern Status LastModified by Organization Details LastModified Time None Recorded Advance Directives Directive None Recorded Payers Encounter Date Sequence Insurance Name Policy Number Policy Ad[employer] Covered Member ID Adair Member ID Guarantor Name 07/05/2022 1 [place] Eduardo D Furfaro [id number] Eduardo D Furfaro 07/05/2022 2 [employer] [place] [place] (MEDICARE [place]PPLE[place] Eduardo D Furfaro [id number] Eduardo D Furfaro 02/02/2023 1 [place] Eduardo D Furfaro [id number] Eduardo D Furfaro 02/02/2023 2 [employer] [place] Eduardo D Furfaro [id number] Eduardo D Furfaro 08/13/2023 1 [place] Eduardo D Furfaro [id number] Eduardo D Furfaro 08/13/2023 2 [employer] [place]) Eduardo D Furfaro [id number] Eduardo D Furfaro 09/19/2023 1 [place] Eduardo D Furfaro [id number] Eduardo D Furfaro 09/19/2023 2 [employer] [place]) Eduardo D Furfaro [id number] Eduardo D Furfaro 03/17/2024 1 [place] Eduardo D Furfaro [id number] Eduardo D Furfaro 03/17/2024 2 [employer] [place] [place] (MEDIC[place]PP[place]) Eduardo D Furfaro [id number] Eduardo D Furfaro Notes Date Note Type Note Provider Name and Address Organization Details Recorded Time 07/05/2022 text/html 07/05/22CC : Car diac follow up , [id number] year old male with a history of Non-ischemic cardiomyopathy, AVR, Mild CAD, atrial fibrillation, hypertension, former smoker (quit 04/2017), mild cad, presents for 6 month follow up. Denies chest pain.Denies shortness of breath at rest. Has mild dyspnea on exertion.No orthopnea. No PNDs.Denies heart palpitations.Had occasional dizziness. Denies syncope or near syncope.No ankle or leg edema.No major bleeding events.No reported side effects from medications. Taking medications as prescribed with no missed doses.Denies snoring, daytime somnolence and AM headache.*Last LDL was 73 done on 08/15/21.Pt takes atorvastatin 20 mg. Previously:*Had negative stress test done on 06/20/21 with Normal LV systolic function. LVEF 57%. Using CPAP religiously *Had ECHO done in 08/17/19 showed LV systolic function is mildly reduced,EF 45-50%, diastolic function is indeterminate due to atrial fibrillation,left atrium chamber is mildly dilated ,right atrium chamber is mildly dilated,the aortic valve is mildly calcified,there is minimal aortic regurgitation,the mitral valve leaflet is mildly thickened,there is mild mitral regurgitation,there is mild tricuspid regurgitation,there is mild pulmonary hypertension,mild elevation of estimated RV systolic pressure,estimated RVSP systolic pressure is 37 mmHg,there is mild pulmonic regurgitation,atrial fibrillation. *Had LHC on 04/22/17 Mild coronary artery disease. Dilated left ventricle, severe left ventricular systolic function. Results from this visit, or from the past: 09/18/18: Na 140, K 4.4, CL 107, CO2 27, GLU 126, BUN 23 , CR 1.0 ,AST 22 ,[place] 20, [place] [address]/10/03: TC 126 ,TG 75, HDL 52 ,LDL 58,11/01/17: Na 143 ,K 4.8 ,CL 106 ,CO2 30 , GLU 88 , BUN 17 , CR 1.12, CK 54 ,TC 150 ,TG 66 ,HDL55 ,LDL 80 ,AST 21 ,ALT 1902: WBC 8.4, HGB 13.0, HCT 39.9, PLT 246, Na 141, K 4.3, Gl 123, Bun 16, Cr 1.: TC 139, HDL 35, Tr i121, LDL 81EKG 10/17/19 P normal QRS horizontal axis ST-T normal . Normal variant of ECG04/28/19 EKG: Normal sinus rhythm within normal limitEKG 11/04/2018 AM Anteroseptal mtocardial infarction, age undeterminedEKG 07/10/2018 EKG sinus BradycardiaEKG 01/09/18: Sinus bradycardia. Anteroseptal infarct-age undetermined. AbnormalEK10/28/17: Probablt old anteroseptal myocardial infarction; inverted T wave in V6EKG 08/04/17: Sinus rhythm, possible left atrial enlargement, possible left ventricular hypertrophy; T wave abnormality; consider anterior ischemia; abnormal ECG08/25/18 Carotid US: Antegrade flow noted in left vetebral artery. Very mild right internal carotid artery stenosis with less than 15% diameter stenosis. Mild left internal carotid artery stenosis with less than 50% diameter stenosis.08/25/18 ECHO: LV chamber size is normal. LV wall thickness is moderately increased. The estimated left ventricle ejection fraction is 50-55%(normal). LV relaxation is normal. Left atrium chamber is mildly to moderately dilated. There is a mildly stenotic aortic valve bioprosthesis with an elevated transvalvular gradient. There is a bioprosthetic aortic valve with trace regurgitation. There is physiologic tricuspid valve regurgitation.11/06/17 ECHO: LV chamber size is normal. There is normal global systolic function and contractility. There is a well seated bioprosthetic aortic valve with normal with normal function. AV mean gradient : 18.2 mmHg. AV peak gradient: 28.35 mmHg. There is trace tricuspid regurgitation.ECHO 08/06/17: Mild enlargement of left ventricular cavity. Normal aortic root. Moderate to severe aortic stenosis. Aortic cusps appear moderately calcified. Bicuspid aortic valve. Moderate to severe aortic valve regurgitation.doppler, venous 08/04/17: No deep vein thrombosis in either lower limb.jamal perfusion 08/04/17: Greater than [address] depression, Noted during stress, resolved in recovery occasional PVCs, Normal hemodynamic response to exercise, Exercise induced chest pain and dyspnea, ECG evidence of ischemia at 85% predicted maximal heart rate, Exercise capacity is average.08/05/17 Treadmill NUC: No definitive ischemia or infarct with likely diaphragmatic attenuation artifact at the apex and apical inferior and apical sepal liz which significantly improves on stress imaging with prone positioning. Moderate left ventricular enlargement with mildly decreased left ventricular ejection fraction measuring 42%.US, echocardiogram, transesophageal [id number] 08/06/17:Mild enlargement of left ventricular cavity,normal aortic root,moderate to severe aortic stenosis , aortic cusps appear moderately to severe aortic valve11/17/19 SLEEP STUDY : findings are consistent with moderate, positional obstructive sleep apnea. Quinn Conroy MD [address] [place], [address], [facility] 07/05/2022 12:05:23 02/02/2023 text/html 02/02/23CC : Car diac follow up, dyspnea on [id number] year old male with a history of Non-ischemic cardiomyopathy, AVR, Mild CAD, atrial fibrillation, hypertension, former smoker (quit 04/2017), mild cad, presents for follow up with ECHO results. He was last seen in the clinic on 07/05/22, since then he is still active with workHe denies ER visits and hospitalizations since he was last seen. Today reports:Denies chest pain.Denies shortness of breath at rest. Has mild dyspnea on exertion.No orthopnea. No PNDs.Denies heart palpitations.Denies dizziness. Denies syncope or near syncope.No ankle or leg edema.No major bleeding events.No reported side effects from medications. Taking medications as prescribed with no missed doses.Denies snoring, daytime somnolence and AM headache.*Last LDL was 73 done on 08/15/21.Pt takes atorvastatin 20 mg. *Had ECHO on 07/18/22 showed LV chamber size is normal. LV wall thickness is mildly increased. The estimated left ventricle ejection fraction is 50-55% (normal). Left Atrium chamber is mildly dilated. There is a prosthetic aortic valve of unknown type with significant regurgitation. There is biological aortic valve prosthesis placed with the TAVR technique. There is a mildly stenotic aortic valve bioprosthesis with an elevated transvalvular gradient. There is mild triscupid regurgitation. Mild elevation of estimated RV systolic pressure. Sinus Bradycardia. Previously:*Had negative stress test done on 06/20/21 with Normal LV systolic function. LVEF 57%. Using CPAP religiously *Had LHC on 04/22/17 Mild coronary artery disease. Dilated left ventricle, severe left ventricular systolic function. Results from this visit, or from the past: 09/18/18: Na 140, K 4.4, CL 107, CO2 27, GLU 126, BUN 23 , CR 1.0 ,AST 22 ,[place] 20, [place] [address]: TC 126 ,TG 75, HDL 52 ,LDL 58,11/01/17: Na 143 ,K 4.8 ,CL 106 ,CO2 30 , GLU 88 , BUN 17 , CR 1.12, CK 54 ,TC 150 ,TG 66 ,HDL55 ,LDL 80 ,AST 21 ,ALT 1902/: WBC 8.4, HGB 13.0, HCT 39.9, PLT 246, Na 141, K 4.3, Gl 123, Bun 16, Cr 1.002: TC 139, HDL 35, Tr i121, LDL 81EKG 10/17/19 P normal QRS horizontal axis ST-T normal . Normal variant of ECG04/28/19 EKG: Normal sinus rhythm within normal limitEKG 11/04/2018 AM Anteroseptal mtocardial infarction, age undeterminedEKG 07/10/2018 EKG sinus BradycardiaEKG 01/09/18: Sinus bradycardia. Anteroseptal infarct-age undetermined. AbnormalEK10/28/17: Probablt old anteroseptal myocardial infarction; inverted T wave in V6EKG 08/04/17: Sinus rhythm, possible left atrial enlargement, possible left ventricular hypertrophy; T wave abnormality; consider anterior ischemia; abnormal ECG08/25/18 Carotid US: Antegrade flow noted in left vetebral artery. Very mild right internal carotid artery stenosis with less than 15% diameter stenosis. Mild left internal carotid artery stenosis with less than 50% diameter stenosis.08/25/18 ECHO: LV chamber size is normal. LV wall thickness is moderately increased. The estimated left ventricle ejection fraction is 50-55%(normal). LV relaxation is normal. Left atrium chamber is mildly to moderately dilated. There is a mildly stenotic aortic valve bioprosthesis with an elevated transvalvular gradient. There is a bioprosthetic aortic valve with trace regurgitation. There is physiologic tricuspid valve regurgitation.11/06/17 ECHO: LV chamber size is normal. There is normal global systolic function and contractility. There is a well seated bioprosthetic aortic valve with normal with normal function. AV mean gradient : 18.2 mmHg. AV peak gradient: 28.35 mmHg. There is trace tricuspid regurgitation.ECHO 08/06/17: Mild enlargement of left ventricular cavity. Normal aortic root. Moderate to severe aortic stenosis. Aortic cusps appear moderately calcified. Bicuspid aortic valve. Moderate to severe aortic valve regurgitation.doppler, venous 08/04/17: No deep vein thrombosis in either lower limb.jamal perfusion 08/04/17: Greater than [address] depression, Noted during stress, resolved in recovery occasional PVCs, Normal hemodynamic response to exercise, Exercise induced chest pain and dyspnea, ECG evidence of ischemia at 85% predicted maximal heart rate, Exercise capacity is average.08/05/17 Treadmill NUC: No definitive ischemia or infarct with likely diaphragmatic attenuation artifact at the apex and apical inferior and apical sepal liz which significantly improves on stress imaging with prone positioning. Moderate left ventricular enlargement with mildly decreased left ventricular ejection fraction measuring 42%.US, echocardiogram, transesophageal [id number] 08/06/17:Mild enlargement of left ventricular cavity,normal aortic root,moderate to severe aortic stenosis , aortic cusps appear moderately to severe aortic valve11/17/19 SLEEP STUDY : findings are consistent with moderate, positional obstructive sleep apnea. Quinn Conroy MD [address] [place], [address], [facility] 02/02/2023 11:40:38 08/13/2023 text/html 02/02/23CC : Car diac follow up dyspnea on [id number] year old male with a history of Non-ischemic cardiomyopathy, AVR, Mild CAD, atrial fibrillation, hypertension, former smoker (quit 04/2017), mild cad, presents for 6 month follow. He was last seen in the clinic on 02/02/23, since then he is doing well.He denies ER visits and hospitalizations since he was last seen.*Last LDL was 73 done on 08/15/21.Pt takes atorvastatin 20 mg. Today reports: CC: pt has concerns with headaches and if ibuprofen is appropriate to take with heart conditionDenies chest pain.Denies shortness of breath at rest. Has mild dyspnea on exertion.No orthopnea. No PNDs.Denies heart palpitations.Denies dizziness. Denies syncope or near syncope.No ankle or leg edema.No major bleeding events.No reported side effects from medications. Taking medications as prescribed with no missed doses.Denies snoring, daytime somnolence and AM headache.*Last LDL was 73 done on 08/15/21.Pt takes atorvastatin 20 mg. Previously:*Had ECHO on 07/18/22 showed LV chamber size is normal. LV wall thickness is mildly increased. The estimated left ventricle ejection fraction is 50-55% (normal). Left Atrium chamber is mildly dilated. There is a prosthetic aortic valve of unknown type with significant regurgitation. There is biological aortic valve prosthesis placed with the TAVR technique. There is a mildly stenotic aortic valve bioprosthesis with an elevated transvalvular gradient. There is mild triscupid regurgitation. Mild elevation of estimated RV systolic pressure. Sinus Bradycardia. *Had negative stress test done on 06/20/21 with Normal LV systolic function. LVEF 57%. Using CPAP religiously *Had LHC on 04/22/17 Mild coronary artery disease. Dilated left ventricle, severe left ventricular systolic function. Results from this visit, or from the past: 09/18/18: Na 140, K 4.4, CL 107, CO2 27, GLU 126, BUN 23 , CR 1.0 ,AST 22 ,[place] 20, [place] [address]: TC 126 ,TG 75, HDL 52 ,LDL 58,11/01/17: Na 143 ,K 4.8 ,CL 106 ,CO2 30 , GLU 88 , BUN 17 , CR 1.12, CK 54 ,TC 150 ,TG 66 ,HDL55 ,LDL 80 ,AST 21 ,ALT [address]/05/2017: WBC 8.4, HGB 13.0, HCT 39.9, PLT 246, Na 141, K 4.3, Gl 123, Bun 16, Cr 1.: TC 139, HDL 35, Tr i121, LDL 81EKG 10/17/19 P normal QRS horizontal axis ST-T normal . Normal variant of ECG04/28/19 EKG: Normal sinus rhythm within normal limitEKG 11/04/2018 AM Anteroseptal mtocardial infarction, age undeterminedEKG 07/10/2018 EKG sinus BradycardiaEKG 01/09/18: Sinus bradycardia. Anteroseptal infarct-age undetermined. AbnormalEK10/28/17: Probablt old anteroseptal myocardial infarction; inverted T wave in V6EKG 08/04/17: Sinus rhythm, possible left atrial enlargement, possible left ventricular hypertrophy; T wave abnormality; consider anterior ischemia; abnormal ECG08/25/18 Carotid US: Antegrade flow noted in left vetebral artery. Very mild right internal carotid artery stenosis with less than 15% diameter stenosis. Mild left internal carotid artery stenosis with less than 50% diameter stenosis.08/25/18 ECHO: LV chamber size is normal. LV wall thickness is moderately increased. The estimated left ventricle ejection fraction is 50-55%(normal). LV relaxation is normal. Left atrium chamber is mildly to moderately dilated. There is a mildly stenotic aortic valve bioprosthesis with an elevated transvalvular gradient. There is a bioprosthetic aortic valve with trace regurgitation. There is physiologic tricuspid valve regurgitation.11/06/17 ECHO: LV chamber size is normal. There is normal global systolic function and contractility. There is a well seated bioprosthetic aortic valve with normal with normal function. AV mean gradient : 18.2 mmHg. AV peak gradient: 28.35 mmHg. There is trace tricuspid regurgitation.ECHO 08/06/17: Mild enlargement of left ventricular cavity. Normal aortic root. Moderate to severe aortic stenosis. Aortic cusps appear moderately calcified. Bicuspid aortic valve. Moderate to severe aortic valve regurgitation.doppler, venous 08/04/17: No deep vein thrombosis in either lower limb.jamal perfusion 08/04/17: Greater than [address] depression, Noted during stress, resolved in recovery occasional PVCs, Normal hemodynamic response to exercise, Exercise induced chest pain and dyspnea, ECG evidence of ischemia at 85% predicted maximal heart rate, Exercise capacity is average.08/05/17 Treadmill NUC: No definitive ischemia or infarct with likely diaphragmatic attenuation artifact at the apex and apical inferior and apical sepal liz which significantly improves on stress imaging with prone positioning. Moderate left ventricular enlargement with mildly decreased left ventricular ejection fraction measuring 42%.US, echocardiogram, transesophageal [id number] 08/06/17:Mild enlargement of left ventricular cavity,normal aortic root,moderate to severe aortic stenosis , aortic cusps appear moderately to severe aortic valve11/17/19 SLEEP STUDY : findings are consistent with moderate, positional obstructive sleep apnea. [facility] [place] [facility] 08/13/2023 11:12:39 09/19/2023 text/html 09/19/23CC : Car diac follow up dyspnea on [id number] year old male with a history of Non-ischemic cardiomyopathy, AVR, Mild CAD, atrial fibrillation s/p MAZE procedure, NATO on CPAP, hypertension, former smoker (quit 04/2017), mild cad, presents for 1 week follow with ECHO and Stress test results. He was last seen in the clinic on 08/13/23, since then he is doing well. He denied chest pain or dyspnea on exertion. His stress test was negative . Carotid US with mild disease. *Last LDL was 75 done on 06/03/23.Pt takes atorvastatin 20 mg. He denies ER visits and hospitalizations since he was last seen. Today reports: CC: pt states no concerns at this timeDenies chest pain.Denies shortness of breath at rest. Has mild dyspnea on exertion.No orthopnea. No PNDs.Denies heart palpitations.Denies dizziness. Denies syncope or near syncope.No ankle or leg edema.No major bleeding events.No reported side effects from medications. Taking medications as prescribed with no missed doses.Denies snoring, daytime somnolence and AM headache.*Last LDL was 75 done on 06/03/23.Pt takes atorvastatin 20 mg. *Had ECHO on 09/04/23 showed LV chamber size is normal,LVEF 50-55%, The aortic valve is not well visualized, there is mild stenotic aortic valve bioprosthesis with an elevated transvalvular gradient, there is mild calcification of mitral valve posterior leaflet,there is trace tricuspid regurgitation, the inferior vena cava is not visualized.sinus bradycardia. *Had Negative Lexiscan stress test on 08/20/23 Negative Lexiscan stress test for ischemia. 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 Normal LV systolic function. LVEF: 60%. Previously:He was last seen in the clinic on 02/02/23, since then he is doing well. *Had negative stress test done on 06/20/21 with Normal LV systolic function. LVEF 57%. Using CPAP religiously *Had LHC on 04/22/17 Mild coronary artery disease. Dilated left ventricle, severe left ventricular systolic function. Results from this visit, or from the past: 09/18/18: Na 140, K 4.4, CL 107, CO2 27, GLU 126, BUN 23 , CR 1.0 ,AST 22 ,[place] 20, [place] [address]: TC 126 ,TG 75, HDL 52 ,LDL 58,11/01/17: Na 143 ,K 4.8 ,CL 106 ,CO2 30 , GLU 88 , BUN 17 , CR 1.12, CK 54 ,TC 150 ,TG 66 ,HDL55 ,LDL 80 ,AST 21 ,ALT 19008/05/2017: WBC 8.4, HGB 13.0, HCT 39.9, PLT 246, Na 141, K 4.3, Gl 123, Bun 16, Cr 1.: TC 139, HDL 35, Tr i121, LDL 81EKG 10/17/19 P normal QRS horizontal axis ST-T normal . Normal variant of ECG04/28/19 EKG: Normal sinus rhythm within normal limitEKG 11/04/2018 AM Anteroseptal mtocardial infarction, age undeterminedEKG 07/10/2018 EKG sinus BradycardiaEKG 01/09/18: Sinus bradycardia. Anteroseptal infarct-age undetermined. AbnormalEK10/28/17: Probablt old anteroseptal myocardial infarction; inverted T wave in V6EKG 08/04/17: Sinus rhythm, possible left atrial enlargement, possible left ventricular hypertrophy; T wave abnormality; consider anterior ischemia; abnormal ECG08/25/18 Carotid US: Antegrade flow noted in left vetebral artery. Very mild right internal carotid artery stenosis with less than 15% diameter stenosis. Mild left internal carotid artery stenosis with less than 50% diameter stenosis.08/25/18 ECHO: LV chamber size is normal. LV wall thickness is moderately increased. The estimated left ventricle ejection fraction is 50-55%(normal). LV relaxation is normal. Left atrium chamber is mildly to moderately dilated. There is a mildly stenotic aortic valve bioprosthesis with an elevated transvalvular gradient. There is a bioprosthetic aortic valve with trace regurgitation. There is physiologic tricuspid valve regurgitation.11/06/17 ECHO: LV chamber size is normal. There is normal global systolic function and contractility. There is a well seated bioprosthetic aortic valve with normal with normal function. AV mean gradient : 18.2 mmHg. AV peak gradient: 28.35 mmHg. There is trace tricuspid regurgitation.ECHO 08/06/17: Mild enlargement of left ventricular cavity. Normal aortic root. Moderate to severe aortic stenosis. Aortic cusps appear moderately calcified. Bicuspid aortic valve. Moderate to severe aortic valve regurgitation.doppler, venous 08/04/17: No deep vein thrombosis in either lower limb.jamal perfusion 08/04/17: Greater than [address] depression, Noted during stress, resolved in recovery occasional PVCs, Normal hemodynamic response to exercise, Exercise induced chest pain and dyspnea, ECG evidence of ischemia at 85% predicted maximal heart rate, Exercise capacity is average.08/05/17 Treadmill NUC: No definitive ischemia or infarct with likely diaphragmatic attenuation artifact at the apex and apical inferior and apical sepal liz which significantly improves on stress imaging with prone positioning. Moderate left ventricular enlargement with mildly decreased left ventricular ejection fraction measuring 42%.US, echocardiogram, transesophageal [id number] 08/06/17:Mild enlargement of left ventricular cavity,normal aortic root,moderate to severe aortic stenosis , aortic cusps appear moderately to severe aortic valve11/17/19 SLEEP STUDY : findings are consistent with moderate, positional obstructive sleep apnea. [facility] [place] 09/19/2023 11:08:27 03/17/2024 text/html 03/17/24CC : Car diac follow up78 year old male with a history of Non-ischemic cardiomyopathy, AVR, Mild CAD, atrial fibrillation s/p MAZE procedure, NATO on CPAP, hypertension, former smoker (quit 04/2017), mild cad, presents for 6 month follow. He was last seen in the clinic on 09/19/23, since then he isdoing well, lost few poundsHe denies ER visits and hospitalizations since he was last seen. Denies chest pain.Denies shortness of breath at rest. Has mild dyspnea on exertion.No orthopnea. No PNDs.Denies heart palpitations.Denies dizziness. Denies syncope or near syncope.No ankle or leg edema.No major bleeding events.No reported side effects from medications. Taking medications as prescribed with no missed doses.Denies snoring, daytime somnolence and AM headache.*Last LDL was 55 done on 06/03/23.Pt takes atorvastatin 20 mg. Previously:His stress test was negative . Carotid US with mild disease. *Had ECHO on 09/04/23 showed LV chamber size is normal,LVEF 50-55%, The aortic valve is not well visualized, there is mild stenotic aortic valve bioprosthesis with an elevated transvalvular gradient, there is mild calcification of mitral valve posterior leaflet,there is trace tricuspid regurgitation, the inferior vena cava is not visualized.sinus bradycardia. *Had Negative Lexiscan stress test on 08/20/23 Negative Lexiscan stress test for ischemia. 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 Normal LV systolic function. LVEF: 60%. He was last seen in the clinic on 02/02/23, since then he is doing well. *Had negative stress test done on 06/20/21 with Normal LV systolic function. LVEF 57%. Using CPAP religiously *Had LHC on 04/22/17 Mild coronary artery disease. Dilated left ventricle, severe left ventricular systolic function. Results from this visit, or from the past:09/18/18: Na 140, K 4.4, CL 107, CO2 27, GLU 126, BUN 23 , CR 1.0 ,AST 22 ,[place] 20, [place] [address]: TC 126 ,TG 75, HDL 52 ,LDL 58,11/01/17: Na 143 ,K 4.8 ,CL 106 ,CO2 30 , GLU 88 , BUN 17 , CR 1.12, CK 54 ,TC 150 ,TG 66 ,HDL55 ,LDL 80 ,AST 21 ,ALT 19008/05/2017: WBC 8.4, HGB 13.0, HCT 39.9, PLT 246, Na 141, K 4.3, Gl 123, Bun 16, Cr 1.: TC 139, HDL 35, Tr i121, LDL 81EKG 10/17/19 P normal QRS horizontal axis ST-T normal . Normal variant of ECG04/28/19 EKG: Normal sinus rhythm within normal limitEKG 11/04/2018 AM Anteroseptal mtocardial infarction, age undeterminedEKG 07/10/2018 EKG sinus BradycardiaEKG 01/09/18: Sinus bradycardia. Anteroseptal infarct-age undetermined. AbnormalEK10/28/17: Probablt old anteroseptal myocardial infarction; inverted T wave in V6EKG 08/04/17: Sinus rhythm, possible left atrial enlargement, possible left ventricular hypertrophy; T wave abnormality; consider anterior ischemia; abnormal ECG08/25/18 Carotid US: Antegrade flow noted in left vetebral artery. Very mild right internal carotid artery stenosis with less than 15% diameter stenosis. Mild left internal carotid artery stenosis with less than 50% diameter stenosis.08/25/18 ECHO: LV chamber size is normal. LV wall thickness is moderately increased. The estimated left ventricle ejection fraction is 50-55%(normal). LV relaxation is normal. Left atrium chamber is mildly to moderately dilated. There is a mildly stenotic aortic valve bioprosthesis with an elevated transvalvular gradient. There is a bioprosthetic aortic valve with trace regurgitation. There is physiologic tricuspid valve regurgitation.11/06/17 ECHO: LV chamber size is normal. There is normal global systolic function and contractility. There is a well seated bioprosthetic aortic valve with normal with normal function. AV mean gradient : 18.2 mmHg. AV peak gradient: 28.35 mmHg. There is trace tricuspid regurgitation.ECHO 08/06/17: Mild enlargement of left ventricular cavity. Normal aortic root. Moderate to severe aortic stenosis. Aortic cusps appear moderately calcified. Bicuspid aortic valve. Moderate to severe aortic valve regurgitation.doppler, venous 08/04/17: No deep vein thrombosis in either lower limb.jamal perfusion 08/04/17: Greater than [address] depression, Noted during stress, resolved in recovery occasional PVCs, Normal hemodynamic response to exercise, Exercise induced chest pain and dyspnea, ECG evidence of ischemia at 85% predicted maximal heart rate, Exercise capacity is average.08/05/17 Treadmill NUC: No definitive ischemia or infarct with likely diaphragmatic attenuation artifact at the apex and apical inferior and apical sepal liz which significantly improves on stress imaging with prone positioning. Moderate left ventricular enlargement with mildly decreased left ventricular ejection fraction measuring 42%.US, echocardiogram, transesophageal [id number] 08/06/17:Mild enlargement of left ventricular cavity,normal aortic root,moderate to severe aortic stenosis , aortic cusps appear moderately to severe aortic valve11/17/19 SLEEP STUDY : findings are consistent with moderate, positional obstructive sleep apnea. Quinn Conroy MD [address] [place], [id number], [facility] 03/17/2024 10:57:35
--- OUTSIDE RECORDS SUMMARY | 2024-07-09 22:04 | XMS_ITS | Patient Health Summary ---
Author Organization [facility] [employer] Address [address] [facility] [place] [address] Care Team Providers Care Refueling Rampman Name Role Phone Maureen Stephens MD Primary Care Provider Note from [facility],non-owned Affiliates and Associated Physician Practices is amultiple site organization consisting of ambulatory clinics and hospital sitesin [place], [place], [place] and [place]. This disclosure is being madepursuant to the Care Everywhere program and may not contain all information available regarding this patient. Last updated 18.[facility] Allergies * Latex(Swelling) -Low Criticality Medications * Be aware that medications may not be up to date on this document. Alwaysverify current medications with the patient. * albuterol HFA (PROVENTIL;VENTOLIN;PROAIR) 108 (90 BASE) MCG/ACT inhaler Inhale 2 puffs by mouth every 6 hours as needed * amiodarone (CORDARONE) 400 MG tablet Take 400 mg by mouth as directed Take 1 tablet twice daily for 3 days. Then take 1 tablet daily. * aspirin (ASPIRIN) 81 MG chew tablet Take 81 mg by mouth once daily * atorvastatin (LIPITOR) 20 MG tablet Take 20 mg by mouth once daily For 30 days * budesonide-formoterol (SYMBICORT) 160-4.5 MCG/ACT inhaler Inhale 2 puffs by mouth 2 times daily * docusate sodium (COLACE) 100 MG capsule Take 100 mg by mouth once daily * enoxaparin (LOVENOX) injection Inject 100 mg subcutaneously every 12 hours * furosemide (LASIX) 20 MG tablet Take 20 mg by mouth once daily * metoprolol tartrate (LOPRESSOR) 100 MG tablet Take 100 mg by mouth 2 times daily * oxyCODONE-acetaminophen (PERCOCET) 5-325 MG tablet Take 1 tablet by mouth every 4 hours as needed for Pain * polyethylene glycol 3350 (MIRALAX) packet Take 17 g by mouth once daily * potassium chloride (KLOR-CON M) 10 MEQ tablet(Started 09/13/2017) Take 10 mEq by mouth once daily * warfarin (COUMADIN) 2.5 MG tablet Take 5 mg by mouth once daily * metoprolol tartrate (LOPRESSOR) 25 MG tablet(Started 09/20/2017) Take 25 mg by mouth BID. 3 refills left * metoclopramide (REGLAN) 5 MG tablet(Started 09/20/2017) Take 5 mg by mouth BID PRN. * furosemide (LASIX) 20 MG tablet(Started 09/20/2017) Take 20 mg by mouth QDAY PRN. * amiodarone (CORDARONE) 200 MG tablet(Started 09/21/2017) Take 200 mg by mouth DAILY. 3 refills left * aspirin EC (ECOTRIN) 325 MG tablet(Started 09/20/2017) Take 650 mg by mouth q8h. 2 refills left * aspirin (ASPIRIN) 81 MG tablet(Started 10/21/2017) Take 81 mg by mouth DAILY. 3 refills left * Docusate Sodium (DSS) 100 MG(Started 09/13/2017) Take 100 mg by mouth DAILY. * polyethylene glycol 3350 (MIRALAX) packet(Started 09/13/2017) Take 17 g by mouth DAILY. * oxyCODONE-acetaminophen (PERCOCET) 5-325 MG tablet(Started 09/13/2017) Take 1 tablet by mouth q4h PRN. * metoprolol tartrate (LOPRESSOR) 25 MG tablet(Started 09/20/2017) Take 25 mg by mouth * furosemide (LASIX) 20 MG tablet(Started 09/20/2017) Take 20 mg by mouth * aspirin EC (ECOTRIN) 325 MG tablet(Started 09/20/2017) Take 650 mg by mouth * amiodarone (CORDARONE) 200 MG tablet(Started 09/21/2017) Take 200 mg by mouth * dilTIAZem SR 24hr (DILACOR XR) 180 MG capsule(Started 08/06/2017) * XARELTO 20 MG tablet(Started 08/06/2017) * trandolapril (MAVIK) 4 MG tablet(Started 09/17/2017) Active Problems Problem Noted Date Diagnosed Date Presence of prosthetic heart valve 09/20/2017 Other specified postprocedural states 09/20/2017 Personal history of other di seases of the circulatory system 09/20/2017 Noninflammatory pericardial effusion 09/20/2017 Paroxysmal atrial fibrillation 09/20/2017 Acute pericarditis 09/17/2017 Cardiac tamponade 09/17/2017 Encounter for other specified special examinatio ns 09/13/2017 Uncomplicated asthma 09/13/2017 Essential (primary) hypertension 09/13/2017 Gastro-esophageal reflux disease without esophag itis 09/12/2017 Nonrheumatic mitral valve insufficiency 09/13/19 18 Diastolic congestive heart failure 09/12/2017 Social History Tobacco Use Types Packs/Day Years [...] Mass Index 33.41 10/02/2017 9:35 AM CDT Procedures * CARDIAC EKG ORDER(Performed 02/12/2020) * CARDIAC EKG ORDER(Performed 02/07/2020) * CARDIAC EKG ORDER(Performed 02/07/2020) * CARDIAC EKG ORDER(Performed 02/07/2020) * CARDIAC PROCEDURE ORDER(Performed 11/21/2017) * CARDIAC EKG ORDER(Performed 11/12/2017) * CARDIAC EKG ORDER(Performed 10/24/2017) * CARDIAC EKG ORDER(Performed 10/17/2017) * CARDIAC EKG ORDER(Performed 10/16/2017) * LAB RESULTS ORDER(Performed 10/02/2017) * CARDIAC EKG ORDER(Performed 09/30/2017) * CARDIAC EKG ORDER(Performed 09/23/2017) * PT-INR [facility](Performed 09/20/2017) * BASIC METABOLIC PANEL (CALCIUM TOTAL)(Performed 09/20/2017) * MAGNESIUM BLOOD(Performed 09/20/2017) * CBC W AUTO DIFFERENTIAL(Performed 09/20/2017) * CBC W AUTO DIFFERENTIAL(Performed 09/20/2017) * PT-INR [facility](Performed 09/19/2017) * CBC W AUTO DIFFERENTIAL(Performed 09/19/2017) * BASIC METABOLIC PANEL (CALCIUM TOTAL)(Performed 09/19/2017) * MAGNESIUM BLOOD(Performed 09/19/2017) * CBC W AUTO DIFFERENTIAL(Performed 09/19/2017) * ECHO 2D ONLY WO COLOR OR DOPPLER(Performed 09/19/2017) * EKG 12-LEAD(Performed 09/19/2017) * VANCOMYCIN LEVEL TROUGH(Performed 09/18/2017) * CBC W AUTO DIFFERENTIAL(Performed 09/18/2017) * MAGNESIUM BLOOD(Performed 09/18/2017) * BASIC METABOLIC PANEL (CALCIUM TOTAL)(Performed 09/18/2017) * PT-INR [facility](Performed 09/18/2017) * CBC W AUTO DIFFERENTIAL(Performed 09/18/2017) * ECHO LIMITED OR FOLLOWUP(Performed 09/18/2017) * CROSSMATCH RBC LEUKOREDUCED(Performed 09/17/2017) * TYPE + SCREEN PANEL(Performed 09/17/2017) * CULTURE AEROBIC(Performed 09/17/2017) * PH FLUID(Performed 09/17/2017) * PROTEIN FLUID(Performed 09/17/2017) * CYTOLOGY NON-TRANSPORT AIDE PANEL (STL)(Performed 09/17/2017) * GLUCOSE(Performed 09/17/2017) * LDH BLOOD(Performed 09/17/2017) * MANUAL DIFFERENTIAL REVIEWED(Performed 09/17/2017) * CELL COUNT FLUID(Performed 09/17/2017) * DIFFERENTIAL MANUAL FLUID(Performed 09/17/2017) * CELL COUNT W DIFFERENTIAL FLUID(Performed 09/17/2017) * CCL PERICARDIOCENTESIS(Performed 09/17/2017) * CBC W AUTO DIFFERENTIAL(Performed 09/17/2017) * PT-INR SLH(Performed 09/17/2017) * CBC W AUTO DIFFERENTIAL(Performed 09/17/2017) * MAGNESIUM BLOOD(Performed 09/17/2017) * BASIC METABOLIC PANEL (CALCIUM TOTAL)(Performed 09/17/2017) * ECHO DOPPLER FU OR LIMITED(Performed 09/17/2017) * EKG 12-LEAD(Performed 09/17/2017) * VANCOMYCIN LEVEL TROUGH(Performed 09/16/2017) * EKG 12-LEAD(Performed 09/16/2017) * CBC W AUTO DIFFERENTIAL(Performed 09/15/2017) * BASIC METABOLIC PANEL (CALCIUM TOTAL)(Performed 09/15/2017) * PT-INR SLH(Performed 09/15/2017) * CBC W AUTO DIFFERENTIAL(Performed 09/15/2017) * PT-INR [facility]H(Performed 09/15/2017) * BASIC METABOLIC PANEL (CALCIUM TOTAL)(Performed 09/15/2017) * CBC W AUTO DIFFERENTIAL(Performed 09/15/2017) * CBC W AUTO DIFFERENTIAL(Performed 09/15/2017) * EKG 12-LEAD(Performed 09/15/2017) * CT CHEST WO CONTRAST(Performed 09/14/2017) * CULTURE BLOOD(Performed 09/14/2017) * C-REACTIVE PROTEIN(Performed 09/14/2017) * LIPASE BLOOD(Performed 09/14/2017) * LACTIC ACID BLOOD(Performed 09/14/2017) * CULTURE BLOOD(Performed 09/14/2017) * RESPIRATORY PATHOGEN PANEL BY PCR(Performed 09/14/2017) * CULTURE URINE(Performed 09/14/2017) * URINALYSIS REFLEX TO MICROSCOPIC NO CULTURE(Performed 09/14/2017) * CCL CARDIAC CATH LEFT(Performed 09/14/2017) * XR CHEST 1VW PORTABLE(Performed 09/14/2017) * PTT SLH(Performed 09/14/2017) * PT-INR [facility](Performed 09/14/2017) * DIFFERENTIAL MANUAL(Performed 09/14/2017) * CBC W AUTO DIFFERENTIAL(Performed 09/14/2017) * ERYTHROCYTE SEDIMENTATION RATE(Performed 09/14/2017) * TROPONIN I(Performed 09/14/2017) * CK + CKMB PANEL(Performed 09/14/2017) * COMPREHENSIVE METABOLIC PANEL(Performed 09/14/2017) * CBC W AUTO DIFFERENTIAL(Performed 09/14/2017) * ECHO 2D ONLY WO COLOR OR DOPPLER(Performed 09/14/2017) * EKG 12-LEAD(Performed 09/14/2017) * GLUCOSE ACCUCHECK(Performed 09/13/2017) * BASIC METABOLIC PANEL (CALCIUM TOTAL)(Performed 09/13/2017) * PHOSPHORUS BLOOD(Performed 09/13/2017) * MAGNESIUM BLOOD(Performed 09/13/2017) * PTT SLH(Performed 09/13/2017) * PT-INR [facility](Performed 09/13/2017) * CBC W/O DIFFERENTIAL(Performed 09/13/2017) * GLUCOSE ACCUCHECK(Performed 09/13/2017) * XR CHEST 1VW PORTABLE(Performed 09/13/2017) * GLUCOSE ACCUCHECK(Performed 09/12/2017) * GLUCOSE ACCUCHECK(Performed 09/12/2017) * GLUCOSE ACCUCHECK(Performed 09/12/2017) * PTT SLH(Performed 09/12/2017) * XR CHEST 1VW PORTABLE(Performed 09/12/2017) * BASIC METABOLIC PANEL (CALCIUM TOTAL)(Performed 09/12/2017) * PHOSPHORUS BLOOD(Performed 09/12/2017) * MAGNESIUM BLOOD(Performed 09/12/2017) * PTT SLH(Performed 09/12/2017) * PT-INR [facility](Performed 09/12/2017) * CBC W/O DIFFERENTIAL(Performed 09/12/2017) * EKG 12-LEAD(Performed 09/12/2017) * GLUCOSE ACCUCHECK(Performed 09/11/2017) * PTT SLH(Performed 09/11/2017) * GLUCOSE ACCUCHECK(Performed 09/11/2017) * GLUCOSE ACCUCHECK(Performed 09/11/2017) * BASIC METABOLIC PANEL (CALCIUM TOTAL)(Performed 09/11/2017) * PHOSPHORUS BLOOD(Performed 09/11/2017) * MAGNESIUM BLOOD(Performed 09/11/2017) * PT-INR SL[facility](Performed 09/11/2017) * PTT [facility](Performed 09/11/2017) * CBC W/O DIFFERENTIAL(Performed 09/11/2017) * GLUCOSE ACCUCHECK(Performed 09/11/2017) * XR CHEST 1VW PORTABLE(Performed 09/11/2017) * EKG 12-LEAD(Performed 09/11/2017) * PTT SL[facility](Performed 09/10/2017) * GLUCOSE ACCUCHECK(Performed 09/10/2017) * GLUCOSE ACCUCHECK(Performed 09/10/2017) * XR CHEST 1VW PORTABLE(Performed 09/10/2017) * GLUCOSE ACCUCHECK(Performed 09/10/2017) * PTT [facility](Performed 09/10/2017) * GLUCOSE ACCUCHECK(Performed 09/10/2017) * PT-INR [facility](Performed 09/10/2017) * CBC W/O DIFFERENTIAL(Performed 09/10/2017) * PHOSPHORUS BLOOD(Performed 09/10/2017) * MAGNESIUM BLOOD(Performed 09/10/2017) * BASIC METABOLIC PANEL (CALCIUM TOTAL)(Performed 09/10/2017) * EKG 12-LEAD(Performed 09/10/2017) * GLUCOSE ACCUCHECK(Performed 09/09/2017) * GLUCOSE ACCUCHECK(Performed 09/09/2017) * GLUCOSE ACCUCHECK(Performed 09/09/2017) * XR CHEST 1VW PORTABLE(Performed 09/09/2017) * GLUCOSE ACCUCHECK(Performed 09/09/2017) * PT-INR SL[facility](Performed 09/09/2017) * BASIC METABOLIC PANEL (CALCIUM TOTAL)(Performed 09/09/2017) * PHOSPHORUS BLOOD(Performed 09/09/2017) * MAGNESIUM BLOOD(Performed 09/09/2017) * CBC W/O DIFFERENTIAL(Performed 09/09/2017) * EKG 12-LEAD(Performed 09/09/2017) * GLUCOSE ACCUCHECK(Performed 09/08/2017) * GLUCOSE ACCUCHECK(Performed 09/08/2017) * BASIC METABOLIC PANEL (CALCIUM TOTAL)(Performed 09/08/2017) * GLUCOSE ACCUCHECK(Performed 09/08/2017) * XR ABDOMEN KUB PORTABLE(Performed 09/08/2017) * GLUCOSE ACCUCHECK(Performed 09/08/2017) * XR CHEST 1VW PORTABLE(Performed 09/08/2017) * PHOSPHORUS BLOOD(Performed 09/08/2017) * MAGNESIUM BLOOD(Performed 09/08/2017) * BASIC METABOLIC PANEL (CALCIUM TOTAL)(Performed 09/08/2017) * CBC W/O DIFFERENTIAL(Performed 09/08/2017) * GLUCOSE ACCUCHECK(Performed 09/07/2017) * GLUCOSE ACCUCHECK(Performed 09/07/2017) * GLUCOSE ACCUCHECK(Performed 09/07/2017) * BASIC METABOLIC PANEL (CALCIUM TOTAL)(Performed 09/07/2017) * PHOSPHORUS BLOOD(Performed 09/07/2017) * MAGNESIUM BLOOD(Performed 09/07/2017) * CBC W/O DIFFERENTIAL(Performed 09/07/2017) * GLUCOSE ACCUCHECK(Performed 09/07/2017) * GLUCOSE ACCUCHECK(Performed 09/06/2017) * GLUCOSE ACCUCHECK(Performed 09/06/2017) * GLUCOSE ACCUCHECK(Performed 09/06/2017) * GLUCOSE ACCUCHECK(Performed 09/06/2017) * GLUCOSE ACCUCHECK(Performed 09/06/2017) * GLUCOSE ACCUCHECK(Performed 09/06/2017) * XR CHEST 1VW PORTABLE(Performed 09/06/2017) * GLUCOSE ACCUCHECK(Performed 09/06/2017) * GLUCOSE ACCUCHECK(Performed 09/06/2017) * BASIC METABOLIC PANEL (CALCIUM TOTAL)(Performed 09/06/2017) * PHOSPHORUS BLOOD(Performed 09/06/2017) * MAGNESIUM BLOOD(Performed 09/06/2017) * CBC W/O DIFFERENTIAL(Performed 09/06/2017) * CALCIUM IONIZED WHOLE BLOOD(Performed 09/06/2017) * BLOOD GASES ARTERIAL(Performed 09/06/2017) * EKG 12-LEAD(Performed 09/06/2017) * GLUCOSE ACCUCHECK(Performed 09/05/2017) * BLOOD GASES ARTERIAL(Performed 09/05/2017) * GLUCOSE ACCUCHECK(Performed 09/05/2017) * MAGNESIUM BLOOD(Performed 09/05/2017) * HEMOGLOBIN(Performed 09/05/2017) * CALCIUM IONIZED WHOLE BLOOD(Performed 09/05/2017) * GLUCOSE ACCUCHECK(Performed 09/05/2017) * GLUCOSE ACCUCHECK(Performed 09/05/2017) * SVO2 FOR RECALIBRATION(Performed 09/05/2017) * XR CHEST 1VW PORTABLE(Performed 09/05/2017) * BLOOD GASES SIDNEY(Performed 09/05/2017) * CALCIUM IONIZED WHOLE BLOOD(Performed 09/05/2017) * BLOOD GASES ARTERIAL(Performed 09/05/2017) * CBC W/O DIFFERENTIAL(Performed 09/05/2017) * PHOSPHORUS BLOOD(Performed 09/05/2017) * MAGNESIUM BLOOD(Performed 09/05/2017) * BASIC METABOLIC PANEL (CALCIUM TOTAL)(Performed 09/05/2017) * FIBRINOGEN ACTIVITY(Performed 09/05/2017) * GLUCOSE ACCUCHECK(Performed 09/05/2017) * ACT - POCT (IP) [facility](Performed 09/05/2017) * CBC W/O DIFFERENTIAL(Performed 09/05/2017) * BLOOD GASES ART COMPLETE [facility] OR(Performed 09/05/2017) * FIBRINOGEN ACTIVITY(Performed 09/05/2017) * CBC W/O DIFFERENTIAL(Performed 09/05/2017) * BLOOD GASES ARTERIAL(Performed 09/05/2017) * CALCIUM IONIZED WHOLE BLOOD(Performed 09/05/2017) * PT-INR [facility](Performed 09/05/2017) * PTT [facility](Performed 09/05/2017) * BASIC METABOLIC PANEL (CALCIUM TOTAL)(Performed 09/05/2017) * PHOSPHORUS BLOOD(Performed 09/05/2017) * MAGNESIUM BLOOD(Performed 09/05/2017) * SVO2 FOR RECALIBRATION(Performed 09/05/2017) * FIBRINOGEN ACTIVITY(Performed 09/05/2017) * PTT [facility](Performed 09/05/2017) * PT-INR [facility](Performed 09/05/2017) * GLUCOSE ACCUCHECK(Performed 09/05/2017) * CBC W/O DIFFERENTIAL(Performed 09/05/2017) * PTT [facility](Performed 09/05/2017) * FIBRINOGEN ACTIVITY(Performed 09/05/2017) * PT-INR [facility](Performed 09/05/2017) * ACT - POCT (IP) [facility](Performed 09/05/2017) * BLOOD GASES ART COMPLETE [facility] OR(Performed 09/05/2017) * PATHOLOGY TISSUE(Performed 09/05/2017) * ACT - POCT (IP) [facility](Performed 09/05/2017) * BLOOD GASES ART COMPLETE [facility] OR(Performed 09/05/2017) * ACT - POCT (IP) [facility](Performed 09/05/2017) * ACT - POCT (IP) [facility](Performed 09/05/2017) * EPOC COMPLETE ART - POCT(Performed 09/05/2017) * ACT - POCT (IP) [facility](Performed 09/05/2017) * ACT - POCT (IP) [facility](Performed 09/05/2017) * BLOOD GASES SIDNEY(Performed 09/05/2017) * BLOOD GASES ART COMPLETE [facility] OR(Performed 09/05/2017) * EPOC COMPLETE ART - POCT(Performed 09/05/2017) * ACT - POCT (IP) [facility](Performed 09/05/2017) * BLOOD GASES ART COMPLETE [facility] OR(Performed 09/05/2017) * PREPARE PLATELET PHERESIS UNIT(S)(Performed 09/05/2017) * PREPARE FFP UNIT(S)(Performed 09/05/2017) * PREPARE CRYOPRECIPITATE UNIT(S)(Performed 09/05/2017) * CROSSMATCH RBC LEUKOREDUCED(Performed 09/05/2017) * CROSSMATCH RBC LEUKOREDUCED(Performed 09/05/2017) * GLUCOSE ACCUCHECK(Performed 09/05/2017) * TYPE + SCREEN PANEL(Performed 09/05/2017) * ECHO ANALISA TRANSESOPHAGEAL(Performed 09/05/2017) * COMPLETE PFT W/WO BRONCHODILATOR(Performed 08/27/2017) * VAS CAROTID DUPLEX BILATERAL(Performed 08/26/2017) * XR CHEST 2VW(Performed 08/26/2017) * CT CHEST WO CONTRAST(Performed 08/26/2017) * EKG 12-LEAD(Performed 08/26/2017) * ECHO 2D ONLY WO COLOR OR DOPPLER(Performed 08/19/2017) * EKG 12-LEAD(Performed 08/16/2017) * CULTURE BLOOD(Performed 06/13/2014) * CULTURE BLOOD(Performed 06/13/2014) Results * CARDIAC EKG ORDER (02/12/2020 6:02 AM CDT) Only the most recent of10 resultswithin the time period is included. Narrative 02/12/2020 6:02 AM CDT Ordered by an unspecified provider. Scanned Document CARDIAC SERVICES ORD ERABLES * CARDIAC PROCEDURE ORDER (11/21/2017 10:29 AM CDT) Narrative 11/21/2017 10:29 AM CDT Ordered by an unspecified provider. Scanned Document CARDIAC SERVICES ORD ERABLES * LAB RESULTS ORDER (10/02/2017 12:54 PM CDT) Narrative 10/02/2017 12:54 PM CDT Ordered by an unspecified provider. Scanned Document LAB - THERAPEUTIC DR MARGARETH MONITORING ORDERABLES * (ABNORMAL) PT-INR [facility] (09/20/2017 1:44 AM CDT) Only the most recent of15 resultswithin the time period is included. PT 15.2(H) 12.1 - 14.8 Seconds [facility] INR 1.2 See Comment [facility] Comment: Suggested therapeutic range for low-intensity coumadin therapy for venous thromboembolism prophylaxis is an INR of 2.0-3.0. ??For high risk patients (Mitral Valve Prosthesis, Atrial Fibrillation, history of TIA/stroke), suggested prophylactic therapeutic range is an INR of 2.5-3.5. Blood specimen (specimen) BLOOD SPECIMEN / Unknown 09/20/2017 1:44 AM CDT 09/20/2017 1:48 AM CDT Narrative [facility] - 09/20/2017 2:39 AM CDT Is patient on Heparin, Argatroban or Dabigatran?->Y Luis Kat MD LAB - COAGULATION OR DERABLES Performing Organization Address City/State/[facility] Co de Phone Number [address] [phone] * (ABNORMAL) BASIC METABOLIC PANEL (CALCIUM TOTAL) (09/20/2017 1:44 AM CDT) Only the most recent of17 resultswithin the time period is included. BUN 18 7 - 26 mg/dL [facility] Creatinine 1.0 0.6 - 1.2 mg/dL [facility] Sodium 137 136 - 145 mmol/L [facility] Potassium 4.5 3.5 - 4.5 mmol/L [facility] Chloride 104 98 - 107 mmol/L [facility] CO2 23 22 - 29 mmol/L [facility] Glucose 123(H) 70 - 115 mg/dL [facility] Calcium 8.1(L) 8.4 - 10.2 mg/dL [facility] Anion Gap 15 8 - 18 [facility] BUN/Creatinine Ratio 18 7 - 23 [facility] Osmolality Calculated 287 270 - 300 mOsm/kg [facility] eGFR >60 >60 mL/min/1.7 3 m2 [facility] Blood specimen (specimen) BLOOD SPECIMEN / Unknown 09/20/2017 1:44 AM CDT 09/20/2017 1:48 AM CDT Luis Kat MD LAB - CHEMISTRY ZAIDA HERNANDEZ Performing Organization Address City/[facility]/ZIP Co de Phone Number [address] [phone] * MAGNESIUM BLOOD (09/20/2017 1:44 AM CDT) Only the most recent of15 resultswithin the time period is included. Pathologist [facility] Magnesium 2.1 1.6 - 2.6 mg/dL [facility] Blood specimen (specimen) BLOOD SPECIMEN / Unknown 09/20/2017 1:44 AM CDT 09/20/2017 1:48 AM CDT Luis Kat MD LAB - CHEMISTRY ZAIDA HERNANDEZ Performing Organization Address [facility] Co de Phone Number [address] [phone] * (ABNORMAL) CBC W AUTO DIFFERENTIAL (09/20/2017 1:44 AM CDT) Only the most recent of14 resultswithin the time period is included. WBC 10.3 3.5 - 10.5 10? 3 /uL [facility] RBC 2.83(L) 4.30 - 5.70 10? 6 /uL [facility] Hemoglobin 7.4(L) 13.5 - 17.5 g/dL [facility] Hematocrit 24.8(L) 39.0 - 50.0 % [facility] MCV 87.6 81.0 - 97.0 fL [facility] MCH 26.1(L) 28.0 - 34.0 pg [facility] MCHC 29.8(L) 32.0 - 36.0 g/dL [facility] Platelet Count 331 150 - 400 10? 3 /uL [facility] RDW-SD 48.0 36.0 - 50.0 fL [facility] RDW-CV 15.9(H) 11.2 - 14.8 % [facility] MPV 10.3 9.3 - 12.8 fL [facility] Neutrophils % 73.0(H) 35.0 - 70.0 % [facility] Lymphocytes % 13.7(L) 19.7 - 55.1 % [facility] Monocytes % 10.6 3.0 - 15.0 % [facility] Eosinophils % 2.4 0.0 - 6.0 % [facility] Basophil % 0.3 0.0 - 1.5 % [facility] Neutrophils Absolute 7.5(H) 1.6 - 7.0 10? 3 /uL [facility] Lymphocyte Absolute 1.4 0.8 - 2.9 10? 3 /uL [facility] Monocytes Absolute 1.09(H) 0.14 - 0.66 10? 3 /uL [facility] Eosinophils Absolute 0.25(H) 0.00 - 0.22 10? 3 /uL [facility] Basophils Absolute 0.03 0.00 - 0.06 10? 3 /uL [facility] Immature Granulocytes % 1.6(H) 0.0 - 1.0 % [facility] Blood specimen (specimen) BLOOD SPECIMEN / Unknown 09/20/2017 1:44 AM CDT 09/20/2017 1:48 AM CDT Luis Kat MD LAB - HEMATOLOGY ORD ERABLES [address] [phone] * ECHO 2D ONLY WO COLOR OR DOPPLER (09/19/2017 12:00 AM CDT) Only the most recent of3 resultswithin the time period is included. Anatomical Region Laterality Modality Other 09/19/2017 Luis Kat MD ECHOCARDIOGRAPHY RAD IANT * EKG 12-LEAD (09/19/2017 12:00 AM CDT) Only the most recent of12 resultswithin the time period is included. EKG [facility] Comment: Exam Date/Time: ?? Sep 19 2017 07:59:23 Test Reason : QTc Blood Pressure : / mmHG Vent. Rate : 063 BPM ? Atrial Rate : 063 BPM ?? P-R Int : 154 ms ?QRS Dur : 098 ms ?QT Int : 554 ms ? P-R-T Axes : 063 -05 033 degrees ?? QTc Int : 566 ms Normal sinus rhythm Nonspecific ST and T wave abnormality ??with diffuse ST elevator Prolonged QT Abnormal ECG When compared with ECG of 17-Sep-2017 11:57:57 QT has lengthened Team aware Confirmed by SHAKEEL DIAZ P ([id number]), editor department Jovani Arevalo ([id number]) on 09/30/2017 11:32:18 AM Referred By: ? Confirmed By:Kirt BECKFORD MD 09/19/2017 Luis Kat MD ECG ORDERABLES Performing Organization Address City/[facility]/ZIP Co de Phone Number [facility] * VANCOMYCIN LEVEL TROUGH (09/18/2017 6:28 PM CDT) Only the most recent of2 resultswithin the time period is included. Vancomycin Trough 12.3 10.0 - 20.0 mcg/mL [facility] Blood specimen (specimen) BLOOD SPECIMEN / Unknown 09/18/2017 6:28 PM CDT 09/18/2017 6:35 PM CDT Luis Kat MD LAB - CHEMISTRY ZAIDA HERNANDEZ Performing Organization Address City/[facility]/ZIP Co de Phone Number [address] [phone] * ECHO FU OR LIMITED (09/18/2017 12:00 AM CDT) Anatomical Region Laterality Modality Other 09/18/2017 uLis Kat MD ECHOCARDIOGRAPHY RAD IANT * CROSSMATCH RBC LEUKOREDUCED (09/17/2017 4:02 PM CDT) Only the most recent of3 resultswithin the time period is included. 09/17/2017 4:02 PM CDT 09/17/2017 4:02 PM CDT Narrative [facility] - 09/17/2017 4:02 PM CDT # of Units->1 Luis Kat MD LAB - BLOOD BANK ORD ERABLES Performing Organization Address [facility]/ZIP Co de Phone Number [facility] [address] * TYPE + SCREEN PANEL (09/17/2017 3:50 PM CDT) Only the most recent of2 resultswithin the time period is included. Typem AB POS [facility] Antibody Screen NEG [facility] Blood specimen (specimen) 09/17/2017 3:50 PM CDT 09/17/2017 4:01 PM CDT Luis Kat MD LAB - BLOOD BANK ORD ERABLES Performing Organization Address [facility] Co de Phone Number [facility] [address] [place] [address] * CULTURE AEROBIC (09/17/2017 3:36 PM CDT) Culture Aerobic No Growth [facility] Gram Stain heavy Red Blood Cells [facility] Gram Stain light White Blood Cells [facility] Gram Stain No Organism Seen [facility] Abscess PERICARDIAL FLUID / Unknown 09/17/2017 3:36 PM CDT 09/18/2017 11:15 AM CDT Narrative [facility] - 09/25/2017 11:55 AM CDT Specimen Type->Aspirate Specimen Source->Pericardial Fluid Resulting Lab: ?? [facility] [address] [place] [address] PH: [phone] Luis Kat MD LAB - MICROBIOLOGY O RDERABLES Performing Organization Address [facility]/ZIP Co de Phone Number [address] [phone] * PH FLUID (09/17/2017 3:35 PM CDT) pH Fluid 7.088 Not Established For Fluids [facility] Comment:The reference range and other method performance specifications have not been established for this fluid. The test result must be integrated into the clinical context for interpretation. Fluid specimen (specimen) PERICARDIAL FLUID / Unknown 09/17/2017 3:35 PM CDT 09/17/2017 4:00 PM CDT Luis Kat MD LAB - BODY FLUID ORD ERABLES Performing Organization Address [facility] Co de Phone Number [address] [phone] * PROTEIN FLUID (09/17/2017 3:35 PM CDT) Protein Fluid 5.1 Not Established For Fluids g/dL [facility] [facility] Comment:The reference range and other method performance specifications have not been established for this fluid. The test result must be integrated into the clinical context for interpretation. Fluid specimen (specimen) PERICARDIAL FLUID / Unknown 09/17/2017 3:35 PM CDT 09/17/2017 4:00 PM CDT Luis Kat MD LAB - BODY FLUID ORD ADY Performing Organization Address [facility] Co de Phone Number [address] [phone] * CYTOLOGY NON-TRANSPORT AIDE PANEL (STL) (09/17/2017 3:34 PM CDT) Pathologist [facility] Cytology Non-[employer] Accession No: [id number] Reference: [id number] Specimen: Pericardial Fluid Clinical History: PERICARDIAL EFFUSION Gross Description: 350 CC DARK BLOODY FLUID Preparation Method: 2 PAP STAINED SLIDES, 1 PAP STAINED CYTOSPIN SLIDE, 1 CELL BLOCK SPECIMEN ADEQUACY: Adequate for evaluation FINAL DIAGNOSIS: Pericardial Fluid ?- Acute and chronic inflammation ? - Negative for malignancy MICROSCOPIC DESCRIPTION: Review of 2 pap slides and 1 cytospin pap slide reveals a marked acute inflammatory specimen with few histiocytic cells present. Review of the cell block reveals acute and chronic inflammatory cells, rare eosinophils, and histiocytes. COMMENT(S): This case has been personally reviewed and interpreted by the attending (teaching) pathologist. Initial Evaluation performed by Concetta COATES (ASCP). Electronically signed 09/18/2017 Final Diagnosis performed by Thierno Morillo M.D Ph.D. Electronically signed 09/20/2017 [facility] Other (qualifier value) 09/17/2017 3:34 PM CDT 09/17/2017 4:01 PM CDT Narrative [facility] - 09/20/2017 9:38 AM CDT Diagnosis->pericardial effusion Collection Date->09/17/17 Specimen A->Pericardial Fluid Luis Kat MD LAB - PATHOLOGY/CYTO LOGY ORDERABLES Performing Organization Address [facility]/ZIP Co de Phone Number [facility] [address] [phone] * (ABNORMAL) GLUCOSE (09/17/2017 3:34 PM CDT) Glucose 57(L) 70 - 115 mg/dL [facility] Blood specimen (specimen) BLOOD SPECIMEN / Unknown 09/17/2017 3:34 PM CDT 09/17/2017 4:03 PM CDT Luis Kat MD LAB - CHEMISTRY ZAIDA HERNANDEZ Performing Organization Address [facility] Co de Phone Number [address] [phone] * (ABNORMAL) LDH BLOOD (09/17/2017 3:34 PM CDT) LDH Total 790(H) 125 - 243 Units/L [facility] Blood specimen (specimen) BLOOD SPECIMEN / Unknown 09/17/2017 3:34 PM CDT 09/17/2017 4:03 PM CDT Luis Kat MD LAB - CHEMISTRY ZAIDA HERNANDEZ Performing Organization Address [facility]/ZIP Co de Phone Number [address] [phone] * MANUAL DIFFERENTIAL REVIEWED (09/17/2017 3:34 PM CDT) Manual Differential Reviewed DIFFERENTIAL REVIEW - CONFIRMED DIFFERENTIAL REVIEW - CONFIRMED [facility] Fluid specimen (specimen) PERICARDIAL FLUID / Unknown 09/17/2017 3:34 PM CDT 09/17/2017 4:02 PM CDT Luis Kat MD LAB - HEMATOLOGY ORD ERABLES [address] [phone] * DIFFERENTIAL MANUAL FLUID (09/17/2017 3:34 PM CDT) Pathologist [facility] Segs % Fluid 61 % [facility] Lymphocytes % Fluid 17 % [facility] Monocytes % Fluid 13 % [facility] Eosinophils % Fluid 4 % [facility] Macrophages % Fluid 5 % [facility] Fluid specimen (specimen) PERICARDIAL FLUID / Unknown 09/17/2017 3:34 PM CDT 09/17/2017 4:02 PM CDT Narrative [facility] - 09/17/2017 4:35 PM CDT No reference ranges established for body fluid differential. Luis Kat MD LAB - BODY FLUID ORD ERABLES Performing Organization Address [facility] Co de Phone Number [address] [phone] * (ABNORMAL) CELL COUNT FLUID (09/17/2017 3:34 PM CDT) Pathologist [facility] Color Fluid Red(A) Colorless, Straw [facility] Clarity Fluid Bloody(A) Clear [facility] Volume Fluid 2.0 mL [facility] WBC Fluid 7,658 Reference Range Not Established /uL [facility] RBC Fluid 2,585,000 Reference Range Not Established /uL [facility] Differential Manual Differential to follow. [facility] Fluid specimen (specimen) PERICARDIAL FLUID / Unknown 09/17/2017 3:34 PM CDT 09/17/2017 4:02 PM CDT Narrative [facility] - 09/17/2017 4:20 PM CDT No established reference ranges for WBC and RBC body fluid count. Luis Kat MD LAB - BODY FLUID LANG GARSIA Performing Organization Address [facility] Co de Phone Number [facility] [address] [place] [address], [facility] [phone] * CELL COUNT W DIFFERENTIAL FLUID (09/17/2017 3:34 PM CDT) Fluid specimen (specimen) PERICARDIAL FLUID / Unknown 09/17/2017 3:34 PM CDT Narrative [facility] - 09/20/2017 1:06 PM CDT The following orders were created for panel order Body fluid cell count with diff. Procedure ? Abnormality ? Status ? --------- ? ------ ? Body fluid cell count wit...[[id number]] ??Abnormal ?Final result ? MANUAL DIFFERENTIAL FLUID[[id number]] ? Final result ? [employer] T[employer]ER [employer]IVER REVIEW DIFF LA...[[id number]] ??Normal ?Final result ? Please view results for these tests on the individual orders. Luis Kat MD LAB - BODY FLUID LANG GARSIA Performing Organization Address [facility] Co de Phone Number [facility] [address] [place] [address], [facility] * CCL PERICARDIOCENTESIS (09/17/2017 3:31 PM CDT) Anatomical Region Laterality Modality X-Ray Angiograph y Narrative 09/17/2017 4:17 PM CDT Date of procedure: 09/17/17 PROCEDURE: Pericardiocentesis fluoroscopy and Echo guided ATTENDING PHYSICIAN: Davon Mathis MD Indication: Pos-operative (AVR) loculated posterior effusion with early signs of tamponade PERICARDIOCENTESIS OVERVIEW: After obtaining informed consent and positioning the patient on the catheterization table, a timeout was performed to confirm the patient? s name, date of , and procedure. Sedation was initiated and the patient was prepped and draped using standard sterile technique. Lidocaine was used for local anesthesia over the subxyphoid region, after which a needle was advanced under fluoroscopic guidance to the pericardium. Once fluid was aspirated, a 4Fr Micro-catheter was advanced into the pericardium and intra-pericardial position was confirmed with echocardiogram after injection of agitated saline. Catheter exchanged OTW for a pericardial drain. A total of 860 ml of serosanguinous fluid was aspirated and sent for study. At the conclusion of the procedure, the pericardial drain was suture in place and left in place. Patient tolerated the procedure well. ? COMPLICATIONS: none DIAGNOSTIC INTERPRETATIONS: 1. Successful pericardiocentesis with 400 ml of hemorrhagic fluid ?? RECOMMENDATIONS AFTER DIAGNOSTIC CATHETERIZATION: ?? 1. Connect to suction 2. Follow up pericardial fluid studies 3. Flush pericardial drain every 2 hours 4. Limited TTE tomorrow morning to re-assess effusion Procedure Note Davon Mathis MD - 11/22/2017 Date of procedure: 09/17/17 PROCEDURE: Pericardiocentesis fluoroscopy and Echo guided ATTENDING PHYSICIAN: Davon Mathis MD Indication: Pos-operative (AVR) loculated posterior effusion with early signs oftamponade PERICARDIOCENTESIS OVERVIEW: After obtaining informed consent and positioning the patient on thecatheterization table, a timeout was performed to confirm the patient? sname, date of , and procedure. Sedation was initiated and the patientwas prepped and draped using standard sterile technique. Lidocaine was used for local anesthesia over thesubxyphoid region, after which a needle was advanced under fluoroscopicguidance to the pericardium. Once fluid was aspirated, a 4FrMicro-catheter was advanced into the pericardium and intra-pericardial position was confirmed with echocardiogram afterinjection of agitated saline. Catheter exchanged OTW for a pericardialdrain. A total of 860 ml of serosanguinous fluid was aspirated and sentfor study. At the conclusion of the procedure, the pericardial drain was suture in place and left in place.Patient tolerated the procedure well. COMPLICATIONS: none DIAGNOSTIC INTERPRETATIONS: 1. Successful pericardiocentesis with 400 ml of hemorrhagic fluid RECOMMENDATIONS AFTER DIAGNOSTIC CATHETERIZATION: 1. Connect to suction 2. Follow up pericardial fluid studies 3. Flush pericardial drain every 2 hours 4. Limited TTE tomorrow morning to re-assess effusion Luis Kat MD CARDIAC FITNESS TECHNICIAN RAD IANT * ECHO DOPPLER FU OR LIMITED (09/17/2017 12:00 AM CDT) Anatomical Region Laterality Modality Other 09/17/2017 Davon Mathis MD ECHOCARDIOGRAPHY RA DIANT * CT CHEST WO CONTRAST (09/14/2017 5:40 PM CDT) Only the most recent of2 resultswithin the time period is included. Anatomical Region Laterality Modality Chest Other Impressions 09/15/2017 3:15 PM CDT IMPRESSION: 1. Postsurgical changes of aortic valve replacement with retrosternal fluid and fat stranding and interval development of moderate to large volume pericardial effusion measuring higher than simple fluid attenuation is concerning hemopericardium and/or pericarditis. If clinically warranted, echocardiography would be helpful to exclude cardiac tamponade. Preliminary findings were discussed with Dr. Felton by Dr. Rajput on 09/14/2017 at 7:45 PM. Report dictated by Eunice Rajput M.D. This report was approved ??by Eunice Rajput M.D. ?? on 09/15/2017 3:07 PM . I, Dr. RAKAN JEAN BAPTISTE M.D. have personally reviewed and interpreted this examination/study. This report was electronically signed by RAKAN JEAN BAPTISTE M.D. ??on 09/15/2017 3:15 PM . Narrative 09/15/2017 3:15 PM CDT EXAMINATION: Computed tomography (CT) of the chest without contrast HISTORY: hypotension TECHNIQUE: CT of the chest was performed without the administration of intravenous contrast according to standard protocol. COMPARISON: Comparison is made with a study from 08/26/2017. FINDINGS: There is a left-sided three-vessel aortic arch. The aorta and main pulmonary artery are normal in course and caliber. The coronary arteries and aorta are atherosclerotic. The lungs are clear of focal consolidation. There are small bilateral pleural effusions, right greater than left, with associated compressive atelectasis. There is no evidence of pneumothorax. The previously seen 2 mm nodules are obscured by pleural effusion and atelectasis. The trachea is patent and midline. Intact median sternotomy wires reflect interval postsurgical changes for aortic valve replacement. Retrosternal fluid and fat stranding is likely postsurgical. There is a moderate to large volume pericardial effusion with higher than simple fluid attenuation, which is concerning for pericarditis and/or hemopericardium. A few benign-appearing mediastinal lymph nodes measuring up to 1.1 cm in short axis (image 40, series 7) are likely reactive. No supraclavicular or axillary lymphadenopathy is seen. The thyroid gland appears normal. Small gallstones are again seen in the dependent gallbladder. No CT evidence of cholecystitis. Within the limitation of a noncontrast enhanced examination, the visible portions of the liver, spleen, kidneys, adrenal glands, pancreas, and stomach appear normal. Bone windows demonstrate no suspicious lytic or blastic lesions. Procedure Note Rakan Jean Baptiste MD - 09/21/2017 EXAMINATION: Computed tomography (CT) of the chest without contrast HISTORY: hypotension TECHNIQUE: CT of the chest was performed without the administration ofintravenous contrast according to standard protocol. COMPARISON: Comparison is made with a study from 08/26/2017. FINDINGS: There is a left-sided three-vessel aortic arch. The aorta and mainpulmonary artery are normal in course and caliber. The coronary arteriesand aorta are atherosclerotic. The lungs are clear of focal consolidation. There are small bilateralpleural effusions, right greater than left, with associated compressiveatelectasis. There is no evidence of pneumothorax. The previously seen 2mm nodules are obscured by pleural effusion and atelectasis. The trachea is patent and midline. Intact median sternotomy wires reflect interval postsurgical changes foraortic valve replacement. Retrosternal fluid and fat stranding is likelypostsurgical. There is a moderate to large volume pericardial effusionwith higher than simple fluid attenuation, which is concerning for pericarditis and/or hemopericardium.A few benign-appearing mediastinal lymph nodes measuring up to 1.1 cm inshort axis (image 40, series 7) are likely reactive. No supraclavicular oraxillary lymphadenopathy is seen. The thyroid gland appears normal. Small gallstones are again seen in the dependent gallbladder. No CTevidence of cholecystitis. Within the limitation of a noncontrast enhancedexamination, the visible portions of the liver, spleen, kidneys, adrenalglands, pancreas, and stomach appear normal. Bone windows demonstrate no suspicious lytic or blastic lesions. IMPRESSION IMPRESSION: 1. Postsurgical changes of aortic valve replacement with retrosternalfluid and fat stranding and interval development of moderate to largevolume pericardial effusion measuring higher than simple fluid attenuationis concerning hemopericardium and/or pericarditis. If clinically warranted, echocardiography would be helpfulto exclude cardiac tamponade. Preliminary findings were discussed with Dr. Felton by Dr. Rajput on 09/14/2017at 7:45 PM. Report dictated by Eunice Rajput M.D. This report was approved by Eunice Rajput M.D. on 09/15/2017 3:07 PM . I, Dr. RAKAN JEAN BAPTISTE M.D. have personally reviewed and interpreted thisexamination/study. This report was electronically signed by RAKAN JEAN BAPTISTE M.D. on 09/15/20173:15 PM . Luis Kat MD CT ORDERABLES * CULTURE BLOOD (09/14/2017 4:34 PM CDT) Only the most recent of4 resultswithin the time period is included. Culture Blood No Growth at 5 days [facility] Blood specimen (specimen) (Venous, Peripheral) 09/14/2017 4:34 PM CDT 09/14/2017 4:47 PM CDT Narrative [facility] - 09/19/2017 9:00 PM CDT Draw 15 minutes after Culture 1 from a different site Resulting Lab: ?? [facility] [address] [place] [address] PH: [phone] Luigi Hernandez DO LAB - MICROBIOLOGY ORDERABLES Performing Organization Address [facility] Co de Phone Number [address] [phone] * (ABNORMAL) C-REACTIVE PROTEIN (09/14/2017 4:16 PM CDT) C-Reactive Protein 11.7(H) <=0.5 mg/dL [facility] Blood specimen (specimen) BLOOD SPECIMEN / Unknown 09/14/2017 4:16 PM CDT 09/14/2017 4:19 PM CDT Luigi Hernandez DO LAB - CHEMISTRY OR DERABLES Performing Organization Address [facility]/ZIP Co de Phone Number [address] [phone] * (ABNORMAL) LIPASE BLOOD (09/14/2017 4:16 PM CDT) Lipase 89(H) 8 - 78 Units/L [facility] Blood specimen (specimen) BLOOD SPECIMEN / Unknown 09/14/2017 4:16 PM CDT 09/14/2017 4:19 PM CDT Luigi Hernandez DO LAB - CHEMISTRY OR DERABLES Performing Organization Address [facility]/ZIP Co de Phone Number [address] [phone] * LACTIC ACID BLOOD (09/14/2017 4:15 PM CDT) Lactic Acid-Stat 1.5 0.5 - 2.2 mmol/L [facility] Blood specimen (specimen) BLOOD SPECIMEN / Unknown 09/14/2017 4:15 PM CDT 09/14/2017 4:19 PM CDT Luigi Hernandez DO LAB - CHEMISTRY OR DERABLES [facility] [address] [place] [address], [facility] [phone] * RESPIRATORY PATHOGEN PANEL BY PCR (09/14/2017 3:45 PM CDT) Adenovirus Not Detected Not Detected, Indetermin ate, Invalid [facility] Human Metapneumovirus Not Detected Not Detected, Indetermin ate, [facility] Rhinovirus/Enterov irus Not Detected Not Detected, Indetermin ate, [facility] Influenza A Non subtyped Not Detected Not Detected, Indetermin ate, [facility] Influenza A H1 Not Detected Not Detected, Indetermin ate, [facility] Influenza A H3 Not Detected Not Detected, Indetermin ate, [facility] Influenza A H1 2009 Not Detected Not Detected, Indetermin ate, [facility] Influenza B Not Detected Not Detected, Indetermin ate, [facility] Mycoplasma pneumoniae Not Detected Not Detected, Indetermin ate, [facility] Parainfluenza 1 Not Detected Not Detected, Indetermin ate, [facility] Parainfluenza 2 Not Detected Not Detected, Indetermin ate, [facility] Parainfluenza 3 Not Detected Not Detected, Indetermin ate, [facility] Parainfluenza 4 Not Detected Not Detected, Indetermin ate, [facility] Respiratory Syncytial Virus Not Detected Not Detected, Indetermin ate, [facility] Bordetella pertussis Not Detected Not Detected, Indetermin ate, [facility] Coronavirus Not Detected Not Detected, Indetermin ate, [facility] Nasopharyngeal NASOPHARYNGEAL SWAB / Unknown 09/14/2017 3:45 PM CDT 09/14/2017 4:04 PM CDT [facility] - 09/15/2017 4:05 AM CDT Coronavirus PCR detects the following coronaviruses: 229E, HKU1, NL63, OC43. Resulting Lab: ?? [facility] [address] [place] [address] PH: [phone] Edward Lothar Fieg DO LAB - MICROBIOLOGY ORDERABLES Performing Organization Address [facility]/ZIP Co de Phone Number [address] [phone] * CULTURE URINE (09/14/2017 3:44 PM CDT) Culture Urine No growth (<1,000 CFU/mL) [facility] Urine specimen (specimen) URINE / Unknown 09/14/2017 3:44 PM CDT 09/14/2017 4:03 PM CDT Narrative [facility] - 09/16/2017 6:27 AM CDT Specimen Type->Urine Resulting Lab: ?? [facility]CROBIOLOG[facility] [address] [place] [address] PH: [phone] Resulting Lab: ?? [facility]CRO[facility] [address] [place] [address] PH: [phone] Luigi Hernandez DO LAB - MICROBIOLOGY ORDERABLES Performing Organization Address [facility] Co de Phone Number [address] [phone] * (ABNORMAL) URINALYSIS REFLEX TO MICROSCOPIC NO CULTURE (09/14/2017 3:44 PM CDT) Color UA Yellow Straw, Yellow, Colorless, Light Yellow [facility] Clarity UA Clear Clear [facility] Specific [place] UA >1.040(H) 1.001 - 1.030 [facility] pH UA 6.0 5.0 - 8.0 [facility] Protein UA Trace(A) <=20 mg/dL [facility] Glucose UA Negative Negative mg/dL [facility] Ketone UA Negative Negative mg/dL [facility] Bilirubin UA Negative Negative mg/dL [facility] Blood UA Trace(A) Negative [facility] Nitrite UA Negative Negative [facility] Leukocyte Esterase Negative Negative [facility] Urobilinogen UA <2.0 <2.0 mg/dL [facility] RBC UA 3 0 - 8 /HPF [facility] WBC UA <1 0 - 2 /HPF [facility] Bacteria UA Occasional Rare, Occasional, None /HPF [facility] Squamous Epithelial Cells UA <1 0 - 1 /HPF [facility] Renal Epithelial UA <1 0 - 1 /HPF [facility] Urine specimen (specimen) 09/14/2017 3:44 PM CDT 09/14/2017 4:03 PM CDT Narrative [facility] - 09/14/2017 4:18 PM CDT Specific gravity results confirmed by refractometer. Kwameyelena Dannycherelle Mary DO LAB - URINALYSIS O RDERABLES [facility] [address] [place] [address] * CCL CARDIAC CATHETERIZATION LEFT (09/14/2017 1:34 PM CDT) Anatomical Region Laterality Modality X-Ray Angiograph y Narrative 09/15/2017 11:18 PM CDT [facility] Cardiac Catheterization Procedure Note Patient: Eduardo Nielsen Age: 72 y.o. Date of : 1945 Date of Admission: 09/14/17 Procedure Date: 09/14/17 FELLOW / SALES SUPERINTENDENT: Alex Meeks MD ATTENDING PHYSICIAN: Obinna Lewis MD PREVIOUS STRESS STUDIES WITHIN 6 MONTHS: none DIAGNOSTIC APPROPRIATENESS CRITERIA: 2 HISTORY: 72 yo male with hx of Afib s/p MAZE and TIFFANIE ligation who was recently discharged from [facility] who now presents with chest pain, diaphoresis and HoTN; ECG concerning for STEMI. ACCESS SITE(S): ?? Right femoral artery (Right radial artery access aborted as described below) PROCEDURAL OVERVIEW: After obtaining informed consent and positioning the patient on the catheterization table, a timeout was performed to confirm the patient? s name, date of , and procedure. ??Sedation was initiated and the patient was prepped and draped using standard sterile technique. ??Lidocaine was used for local anesthesia over the access site, after which the vessel was accessed and a sheath was placed using the modified Seldinger technique. ??Access was initially obtained in right radial artery under US guidance (weak pulse) but unable to advance access wire beyond the level of the elbow. Angiography showed a very small caliber radial artery not suitable for cardiac catheterization. Eventually, access was obtained in the R DRY COLOR TESTER under US guidance without complications. Coronary angiography was performed using 6Fr JR4 and JL4 catheter(s). Left heart catheterization was not performed due to recent AoV surgery. At the conclusion of the procedure, hemostasis was achieved using an Angioseal device after removal of all catheters, wires, and sheaths. ?? SEDATION: Moderate sedation on this adult patient was ordered by me, administered intravenously in my presence, and monitored by the procedure nurse as an independent trained observer who was present throughout the procedure. The following parameters were monitored: oxygen saturation, heart rate, blood pressure, and response to care. Intra-service sedation start time was 13:10 and end time was 13:50 during which I was present. Total physician intra-service sedation time was 40 minutes. For details on pre-moderate sedation and post-moderate sedation patient evaluation, please review the [facility]. For details on monitored clinical parameters during the intra-service sedation time, please review the procedure nurse documentation in [facility]. COMPLICATIONS: none HEMODYNAMIC FINDINGS: ??Ao: 90/60 mmHg ANGIOGRAPHY: ?i. ?Left main: Trivial diffuse plaquing throughout (<5%). ??ii. ?? LAD: Mild diffuse disease in the mid segment up to 30%; otherwise no significant disease. D1 is a small caliber branch with a 50% stenosis in the proximal segment. ??iii. ??Ramus: Medium caliber and bifurcating vessel with mild diffuse disease up to 10%. ??iv. ??LCx: Non-dominant and small caliber vessel with diffuse trivial plaquing throughout (<5%). ??v. ?? RCA: Dominant vessel with Other angiography: Right radial artery is a very small caliber vessel. Femoral angiography: Arteriotomy at the [facility] with no evidence of dissection or perforation. DOMINANCE: Right DIAGNOSTIC INTERPRETATIONS: 1. 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 RECOMMENDATIONS AFTER DIAGNOSTIC CATHETERIZATION: ?? 1. Medical management of nonobstructive CAD. Alex Meeks MD [facility] Pager: [phone] 09/14/2017 1:58 PM I was present for the entirety of the described procedure. Procedure Note Obinna Lewis MD - 11/22/2017 [facility] Cardiac Catheterization Procedure Note Patient: Eduardo Nielsen Age: 72 y.o. Date of : 1945 Date of Admission: 09/14/17 Procedure Date: 09/14/17 FELLOW / SALES SUPERINTENDENT: Alex Meeks MD ATTENDING PHYSICIAN: Obinna Lewis MD PREVIOUS STRESS STUDIES WITHIN 6 MONTHS: none DIAGNOSTIC APPROPRIATENESS CRITERIA: 2 HISTORY: 72 yo male with hx of Afib s/p MAZE and TIFFANIE ligation who was[facility] who now presents with chest pain,diaphoresis and HoTN; ECG concerning for STEMI. ACCESS SITE(S): Right femoral artery (Right radial artery access abortedas described below) PROCEDURAL OVERVIEW: After obtaining informed consent and positioning the patient on thecatheterization table, a timeout was performed to confirm the patient? sname, date of , and procedure. Sedation was initiated and thepatient was prepped and draped using standard sterile technique. Lidocaine was used for local anesthesia over theaccess site, after which the vessel was accessed and a sheath was placedusing the modified Seldinger technique. Access was initially obtained inright radial artery under US guidance (weak pulse) but unable to advance access wire beyond the level of theelbow. Angiography showed a very small caliber radial artery not suitablefor cardiac catheterization. Eventually, access was obtained in the R CFAunder US guidance without complications. Coronary angiography was performed using 6Fr JR4 and [id number](s). Left heart catheterization was not performed due to recentAoV surgery. At the conclusion of the procedure, hemostasis was achievedusing an Angioseal device after removal of all catheters, wires, and sheaths. SEDATION: Moderate sedation on this adult patient was ordered by me, administeredintravenously in my presence, and monitored by the procedure nurse as anindependent trained observer who was present throughout the procedure. Thefollowing parameters were monitored: oxygen saturation, heart rate, blood pressure, and response tocare. Intra-service sedation start time was 13:10 and end time was 13:50during which I was present. Total physician intra-service sedation timewas 40 minutes. For details on pre-moderate sedation and post-moderate sedation patient evaluation,please review the evaluation forms in Epic. For details on monitoredclinical parameters during the intra-service sedation time, please reviewthe procedure nurse documentation in Epic. COMPLICATIONS: none HEMODYNAMIC FINDINGS: Ao: 90/60 mmHg ANGIOGRAPHY: i. Left main: Trivial diffuse plaquing throughout (<5%). ii. LAD: Mild diffuse disease in the mid segment up to 30%; otherwiseno significant disease. D1 is a small caliber branch with a 50% stenosisin the proximal segment. iii. Ramus: Medium caliber and bifurcating vessel with mild diffusedisease up to 10%. iv. LCx: Non-dominant and small caliber vessel with diffuse trivialplaquing throughout (<5%). v. RCA: Dominant vessel with Other angiography: Right radial artery is a very small caliber vessel. Femoral angiography: Arteriotomy at the [facility] with no evidence ofdissection or perforation. DOMINANCE: Right DIAGNOSTIC INTERPRETATIONS: 1. Mild non-obstructive CAD with no evidence of plaque rupture orthrombosis. RECOMMENDATIONS AFTER DIAGNOSTIC CATHETERIZATION: 1. Medical management of nonobstructive CAD. Alex Meeks MD [facility] Pager: [phone] 09/14/2017 1:58 PM I was present for the entirety of the described procedure. Kwameyelena Michelle Hernandez DO CARDIAC FITNESS TECHNICIAN R ADIANT * XR CHEST 1VW PORTABLE (09/14/2017 12:39 PM CDT) Only the most recent of9 resultswithin the time period is included. Anatomical Region Laterality Modality Chest Other Impressions 09/14/2017 2:48 PM CDT IMPRESSION: No acute pulmonary process. Cardiomegaly, unchanged. Dictated by Doug Johnson MD (resident service coordinator). This report was approved ??by Doug Johnson M.D. ?? on 09/14/2017 2:38 PM . I, Dr. RAKAN JEAN BAPTISTE M.D. have personally reviewed and interpreted this examination/study. This report was electronically signed by RAKAN JEAN BAPTISTE M.D. ??on 09/14/2017 2:48 PM . Narrative 09/14/2017 2:48 PM CDT EXAMINATION: PX CHEST 1 VW HISTORY: Chest Pain COMPARISON: Comparison is made with a study from 09/13/2017. FINDINGS: Median sternotomy wires are intact and midline. The lungs are hypoinflated. There is no focal consolidation, pleural effusion, or pneumothorax. The aorta is tortuous and atherosclerotic. The heart is enlarged, unchanged. The visible bony thorax is intact. Procedure Note Rakan Jean Baptiste MD - 09/21/2017 EXAMINATION: PX CHEST 1 VW HISTORY: Chest Pain COMPARISON: Comparison is made with a study from 09/13/2017. FINDINGS: Median sternotomy wires are intact and midline. The lungs are hypoinflated. There is no focal consolidation, pleuraleffusion, or pneumothorax. The aorta is tortuous and atherosclerotic. Theheart is enlarged, unchanged. The visible bony thorax is intact. IMPRESSION IMPRESSION: No acute pulmonary process. Cardiomegaly, unchanged. Dictated by Doug Johnson MD (resident service coordinator). This report was approved by Doug Johnson M.D. on 09/14/2017 2:38 PM. I, Dr. RAKAN JEAN BAPTISTE M.D. have personally reviewed and interpreted thisexamination/study. This report was electronically signed by RAKAN JEAN BAPTISTE M.D. on 09/14/20172:48 PM . Luigi Hernandez DO DIAGNOSTIC IMAGING ORDERABLES * (ABNORMAL) PTT [facility] (09/14/2017 12:26 PM CDT) Only the most recent of11 resultswithin the time period is included. APTT 48.6(H) 23.0 - 38.4 Seconds [facility] Comment:Suggested therapeuti c range for full dose I.V. heparin therapy for venous thromboembolism is 66.0-91.0 seconds. Blood specimen (specimen) BLOOD SPECIMEN / Unknown 09/14/2017 12:26 PM CDT 09/14/2017 12:28 PM CDT Narrative [facility] - 09/14/2017 12:43 PM CDT Please ensure that the aPTT specimen is received in the clinical lab within 1 hour of collection if it is used for therapeutic heparin monitoring. Processing of heparinized specimens older than 1 hour may result in inaccurate test results. Is patient on Heparin, Argatroban or Dabigatran?->N Luigi Hernandez DO LAB - COAGULATION ORDERABLES [address] [phone] * (ABNORMAL) ERYTHROCYTE SEDIMENTATION RATE (09/14/2017 12:26 PM CDT) Erythrocyte Sedimentation Rate Westergren 85(H) 0 - 20 MM/HR [facility] Blood specimen (specimen) BLOOD SPECIMEN / Unknown 09/14/2017 12:26 PM CDT 09/14/2017 12:28 PM CDT Luigi Hernandez DO LAB - HEMATOLOGY O RDERABLES Performing Organization Address City/[facility]/ZIP Co de Phone Number [address] [phone] * (ABNORMAL) DIFFERENTIAL MANUAL (09/14/2017 12:26 PM CDT) WBC (corrected for NRBC) 13.5 10? 3 /uL [facility] Total Cell Count 100 [facility] Neutrophils Absolute Manual 10.67(H) 1.60 - 7.00 10? 3 /uL [facility] Comment:(BANDS+SEGS) x WBC = NEUT # (ANC) Lymphocyte Absolute Manual 1.76 0.80 - 2.90 10? 3 /uL [facility] Monocytes Absolute Manual 1.08(H) 0.14 - 0.66 10? 3 /uL [facility] Band % Manual 6 0 - 10 % [facility] Neutrophil % Manual 73(H) 30 - 60 % [facility] Lymphocyte % Manual 13(L) 20 - 45 % [facility] Monocytes % Manual 8 2 - 10 % [facility] Platelet Estimate Adequate Adequate [facility] Anisocytosis 1+(A) None [facility] Microcytes 1+(A) None [facility] Hypochromia 1+(A) None [facility] Polychromasia 1+(A) None [facility] Target Cells 1+(A) None [facility] Stomatocytes 1+(A) None [facility] Blood specimen (specimen) BLOOD SPECIMEN / Unknown 09/14/2017 12:26 PM CDT 09/14/2017 12:28 PM CDT Luigi Hernandez DO LAB - HEMATOLOGY O RDERABLES [address] [phone] * (ABNORMAL) TROPONIN I (09/14/2017 12:26 PM CDT) [facility] Troponin I 1.720(HH) <0.032 ng/mL [facility] Comment:RESULTS CALLED TO AN D READ BACK BY NIC GILMORE AT 1:18 PM, 09/14/2017 Blood specimen (specimen) BLOOD SPECIMEN / Unknown 09/14/2017 12:26 PM CDT 09/14/2017 12:28 PM CDT Luigi Hernandez DO LAB - CHEMISTRY OR DERABLES Performing Organization Address City/[facility]/ZIP Co de Phone Number [address] [phone] * (ABNORMAL) COMPREHENSIVE METABOLIC PANEL (09/14/2017 12:26 PM CDT) [facility] BUN 33(H) 7 - 26 mg/dL [facility] Creatinine 1.1 0.6 - 1.2 mg/dL [facility] Sodium 136 136 - 145 mmol/L [facility] Potassium 4.8(H) 3.5 - 4.5 mmol/L [facility] Chloride 99 98 - 107 mmol/L [facility] CO2 27 22 - 29 mmol/L [facility] Glucose 135(H) 70 - 115 mg/dL [facility] Calcium 8.6 8.4 - 10.2 mg/dL [facility] Protein Total 6.4 6.0 - 8.3 g/dL [facility] Albumin 3.1(L) 3.4 - 5.0 g/dL [facility] Bilirubin Total 0.8 0.2 - 1.2 mg/dL [facility] Alkaline Phosphatase 78 40 - 150 Units/L [facility] ALT 41 0 - 55 Units/L [facility] AST 23 5 - 34 Units/L [facility] Anion Gap 15 8 - 18 [facility] BUN/Creatinine Ratio 30(H) 7 - 23 [facility] Osmolality Calculated 291 270 - 300 mOsm/kg [facility] Albumin/Globulin Ratio 0.9(L) 1.1 - 2.3 [facility] eGFR >60 >60 mL/min/1.7 3 m2 [facility] Blood specimen (specimen) BLOOD SPECIMEN / Unknown 09/14/2017 12:26 PM CDT 09/14/2017 12:28 PM CDT Luigi Hernandez DO LAB - CHEMISTRY OR DERABLES Performing Organization Address [facility]/ZIP Co de Phone Number [address] [phone] * CK + CKMB PANEL (09/14/2017 12:26 PM CDT) CK Total 37 30 - 200 Units/L [facility] CK-MB 1.0 0.0 - 6.6 ng/mL [facility] Blood specimen (specimen) BLOOD SPECIMEN / Unknown 09/14/2017 12:26 PM CDT 09/14/2017 12:28 PM CDT Kwameyelena Hernandez LAB - CHEMISTRY OR DERABLES Performing Organization Address [facility] Co de Phone Number [address] [phone] * (ABNORMAL) GLUCOSE ACCUCHECK (09/13/2017 12:06 PM CDT) Only the most recent of40 resultswithin the time period is included. Glucose, Fingerstick 142(H) 70-115mg/d L mg/dL [facility] Comment:Licensed Psychologist: MICHAEL INGRAM 09/13/2017 12:0 6 PM CDT Zehra Boo MD LAB - CHEMISTRY ZAIDA HERNANDEZ [facility] FANNY DENISE) * (ABNORMAL) CBC W/O DIFFERENTIAL (09/13/2017 6:44 AM CDT) Only the most recent of12 resultswithin the time period is included. WBC 11.1(H) 3.5 - 10.5 10? 3 /uL [facility] RBC 3.31(L) 4.30 - 5.70 10? 6 /uL [facility] Hemoglobin 8.9(L) 13.5 - 17.5 g/dL [facility] Hematocrit 28.8(L) 39.0 - 50.0 % [facility] MCV 87.0 81.0 - 97.0 fL [facility] MCH 26.9(L) 28.0 - 34.0 pg [facility] MCHC 30.9(L) 32.0 - 36.0 g/dL [facility] Platelet Count 298 150 - 400 10? 3 /uL [facility] RDW-SD 45.1 36.0 - 50.0 fL [facility] RDW-CV 14.8 11.2 - 14.8 % [facility] MPV 11.6 9.3 - 12.8 fL [facility] Blood specimen (specimen) BLOOD SPECIMEN / Unknown 09/13/2017 6:44 AM CDT 09/13/2017 8:01 AM CDT Zehra Boo MD LAB - HEMATOLOGY LANG GARSIA Performing Organization Address City/[facility]/ZIP Co de Phone Number [address] [phone] * PHOSPHORUS BLOOD (09/13/2017 6:44 AM CDT) Only the most recent of10 resultswithin the time period is included. Phosphorus 3.3 2.3 - 4.7 mg/dL [facility] Blood specimen (specimen) BLOOD SPECIMEN / Unknown 09/13/2017 6:44 AM CDT 09/13/2017 8:01 AM CDT Zehra Boo MD LAB - CHEMISTRY ZAIDA HERNANDEZ [facility] [address] [phone] * XR ABDOMEN KUB PORTABLE (09/08/2017 10:10 AM CDT) Anatomical Region Laterality Modality Other Impressions 09/08/2017 1:58 PM CDT Impression: Nonobstructive bowel gas pattern. This report has been dictated by Demetri Rangel M.D. (Resident). Dr. GERBER Patel MD have personally reviewed and interpreted this examination/study. This report was electronically signed by GERBER CADE MD ??on 09/08/2017 1:58 PM . Narrative 09/08/2017 1:58 PM CDT Exam: Portable abdomen, one view Date: 09/08/2017 History: Ileus versus small bowel obstruction Comparison: No prior Findings: There are no abnormally dilated bowel loops or evidence of obstruction. Stool seen in the proximal colon. Air is seen in the rectum. Free air cannot be evaluated on supine radiographs. No pathological calcifications are present. The visible bony structures are intact. Procedure Note Gerber Cade MD - 09/21/2017 Exam: Portable abdomen, one view Date: 09/08/2017 History: Ileus versus small bowel obstruction Comparison: No prior Findings: There are no abnormally dilated bowel loops or evidence of obstruction.Stool seen in the proximal colon. Air is seen in the rectum. Free aircannot be evaluated on supine radiographs. No pathological calcificationsare present. The visible bony structures are intact. IMPRESSION Impression: Nonobstructive bowel gas pattern. This report has been dictated by Demetri Rangel M.D. (Resident). Dr. GERBER Patel MD have personally reviewed and interpreted thisexamination/study. This report was electronically signed by GERBER CADE MD on 09/08/20171:58 PM . Zehra Boo MD DIAGNOSTIC IMAGING O RDERABLES * CALCIUM IONIZED WHOLE BLOOD (09/06/2017 12:04 AM CDT) Only the most recent of4 resultswithin the time period is included. Ionized Calcium Whole Blood 1.21 mmol/L [facility] Adjusted Ionized Calcium 1.20 1.19 - 1.34 mmol/L [facility] pH Whole Blood 7.38 7.35 - 7.45 [facility] Blood specimen (specimen) BLOOD SPECIMEN / Unknown 09/06/2017 12:04 AM CDT 09/06/2017 12:13 AM CDT Narrative [facility] - 09/06/2017 12:15 AM CDT Daily labs while in ICU Heidy Acuña PA-C LAB - CHEMISTRY ORD ERABLES [facility] [address] [place] [address] * (ABNORMAL) BLOOD GASES ART (09/06/2017 12:04 AM CDT) Only the most recent of4 resultswithin the time period is included. pH Arterial 7.38 7.35 - 7.45 [facility] pCO2 Arterial 45 35 - 45 mmHg [facility] pO2 Arterial 112(H) 71 - 95 mmHg [facility] HCO3 Arterial 26.0 22.0 - 26.0 mmol/L [facility] TCO2 Arterial 27.4 25.0 - 29.0 mmol/L [facility] Base Excess Arterial 0.8 -2.0 - 2.0 mmol/L [facility] Hemoglobin Arterial 8.4(L) 13.5 - 17.5 g/dL [facility] Oxyhemoglobin Arterial 96.6 95.0 - 100.0 % [facility] Carboxyhemoglobin 0.5 0.0 - 3.0 % [facility] Methemoglobin 0.2 0.0 - 2.0 % [facility] FI O2 Arterial 40.0 % [facility] Blood specimen (specimen) BLOOD SPECIMEN / Unknown 09/06/2017 12:04 AM CDT 09/06/2017 12:13 AM CDT Narrative [facility] - 09/06/2017 12:15 AM CDT Daily labs while in ICU FIO2->40 Heidy Acuña PA-C LAB - BLOOD GASES O RDERABLES [address] [phone] * (ABNORMAL) HEMOGLOBIN (09/05/2017 8:39 PM CDT) Pathologist [facility] Hemoglobin 8.2(L) 13.5 - 17.5 g/dL [facility] Comment:Results are confirme d by repeat analysis. Blood specimen (specimen) BLOOD SPECIMEN / Unknown 09/05/2017 8:39 PM CDT 09/05/2017 8:48 PM CDT Narrative [facility] - 09/05/2017 8:59 PM CDT Please collect 1 hour after blood finished transfusing. Thanks! Zehra Boo MD LAB - HEMATOLOGY LANG GARSIA Performing Organization Address [facility]/ZIP Co de Phone Number [address] [phone] * SVO2 FOR RECALIBRATION (09/05/2017 6:41 PM CDT) Only the most recent of2 resultswithin the time period is included. [facility] SVO2 for Recalibration 67.5 66.0 - 77.0 % [facility] Blood specimen (specimen) BLOOD SPECIMEN / Unknown 09/05/2017 6:41 PM CDT 09/05/2017 6:47 PM CDT Rian Carter MD LAB - CHEMISTRY ZAIDA HERNANDEZ Performing Organization Address [facility]/ZIP Co de Phone Number [address] [phone] * (ABNORMAL) BLOOD GASES SIDNEY (09/05/2017 6:09 PM CDT) Only the most recent of2 resultswithin the time period is included. Pathologist [facility] pH Mixed Venous 7.35 7.30 - 7.40 [facility] pCO2 Mixed Venous 53(H) 40 - 46 mmHg [facility] pO2 Mixed Venous 35 35 - 42 mmHg [facility] HCO3 Mixed Venous 28.5(H) 22.0 - 26.0 mmol/L [facility] TCO2 Mixed Venous 30.2(H) 25.0 - 29.0 mmol/L [facility] Base Excess Venous 2.7(H) -2.0 - 2.0 mmol/L [facility] Hemoglobin Mixed Venous 6.3(L) 13.5 - 17.5 g/dL [facility] Oxyhemoglobin Mixed Venous 68.2 66.0 - 77.0 % [facility] Carboxyhemoglobin Venous 0.1 0.0 - 3.0 % [facility] Methemoglobin 0.5 0.0 - 2.0 % [facility] FI O2 Mixed Venous 40.0 % [facility] Blood specimen (specimen) BLOOD SPECIMEN / Unknown 09/05/2017 6:09 PM CDT 09/05/2017 6:16 PM CDT Narrative [facility] - 09/05/2017 6:19 PM CDT FI02->40 Rian Carter MD LAB - BLOOD GASES OR DERABLES Performing Organization Address City/[facility]/ZIP Co de Phone Number [address] [phone] * FIBRINOGEN ACTIVITY (09/05/2017 5:39 PM CDT) Only the most recent of4 resultswithin the time period is included. Fibrinogen Clauss 261 200 - 400 mg/dL [facility] Blood specimen (specimen) BLOOD SPECIMEN / Unknown 09/05/2017 5:39 PM CDT 09/05/2017 5:44 PM CDT Rian Carter MD LAB - COAGULATION OR DERABLES Performing Organization Address City/[facility]/ZIP Co de Phone Number [address] [phone] * ACT - POCT (IP) [facility] (09/05/2017 3:23 PM CDT) Only the most recent of8 resultswithin the time period is included. Activated Clotting Time 109 sec [facility] Blood specimen (specimen) 09/05/2017 3:23 PM CDT Zehra Boo MD LAB - POINT OF CARE ORDERABLES [facility] [address] [place] [address] * (ABNORMAL) BLOOD GASES ART COMPLETE [facility] OR (09/05/2017 3:20 PM CDT) Only the most recent of5 resultswithin the time period is included. pH Arterial 7.39 7.35 - 7.45 [facility] pCO2 Arterial 43 35 - 45 mmHg [facility] pO2 Arterial 206(H) 71 - 95 mmHg [facility] HCO3 Arterial 25.4 22.0 - 26.0 mmol/L [facility] TCO2 Arterial 26.7 25.0 - 29.0 mmol/L [facility] Base Excess Arterial 0.4 -2.0 - 2.0 mmol/L [facility] Hemoglobin Arterial 8.4(L) 13.5 - 17.5 g/dL [facility] Oxyhemoglobin Arterial 97.7 95.0 - 100.0 % [facility] Carboxyhemoglobin 0.3 0.0 - 3.0 % [facility] Methemoglobin 0.3 0.0 - 2.0 % [facility] FI O2 Arterial 50.0 % [facility] Ionized Calcium Whole Blood 1.30 mmol/L [facility] Adjusted Ionized Calcium 1.29 1.19 - 1.34 mmol/L [facility] Sodium Whole Blood 141 135 - 145 mmol/L [facility] Potassium Whole Blood 4.2 3.5 - 5.5 mmol/L [facility] Chloride Whole Blood 107 101 - 111 mmol/L [facility] Glucose Whole Blood 108 70 - 110 mg/dL [facility] Lactic Acid Whole Blood 1.8 0.5 - 3.4 mmol/L [facility] Blood specimen (specimen) 09/05/2017 3:20 PM CDT 09/05/2017 3:30 PM CDT Rian Carter MD LAB - BLOOD GASES OR DERABLES [address] [phone] * PATHOLOGY TISSUE (09/05/2017 11:26 AM CDT) Surgical Pathology Tissue ACCESSION No: [id number] CLINICAL HISTORY: Aortic valve insufficiency, paroxysmal atrial fibrillation, aortic valve stenosis. FINAL DIAGNOSIS: Aortic valve, resection: - ? Thickened and degenerated valvular tissue with calcification MICROSCOPIC DESCRIPTION AND COMMENT: Morphology supports the above diagnosis. GROSS DESCRIPTION: The specimen is received fixed in formalin in one container labeled with the patient's name, Eduardo Nielsen, and aortic valve leaflets; permanent , and consists of two portions of rubbery, white-pate tissue with an aggregate measurement of 4.5 x 3.6 x 1.4 cm. ??There are areas of calcification identified on the valve leaflets. ??The specimen is serially sectioned, and vaccine customer representative sections are submitted in cassette A1 following a brief period of decalcification. DC/kwamek The performance characteristics of all immunohistochemical and indirect immunofluorescence stains (if any) cited in this report were determined by the Histopathology Laboratory of [facility].?? Some of these tests were developed by our own laboratory and have not been cleared or approved by the US Food and Drug Administration.?The FDA does not require this test to go through premarket FDA review.?These tests are used for clinical purposes. They should not be regarded as investigational or for research.?? This laboratory is certified under the Clinical Laboratory Improvement Amendments (CLIA) as qualified to perform high complexity clinical laboratory testing. This case has been personally reviewed and interpreted by the attending (teaching) pathologist. Final Diagnosis performed by Thierno Morillo M.D Ph.D. Electronically signed 09/06/2017 [facility] Resection without Tumor ENTIRE HEART VALVE / Unknown 09/05/2017 11:26 AM CDT 09/05/2017 3:29 PM CDT Narrative [facility] - 09/06/2017 1:58 PM CDT Pre-op diagnosis: aortic valve stenosis Paroxysmal atrial fibrillation aortic valve insufficiency Zehra Boo MD LAB - PATHOLOGY/CYTO LOGY ORDERABLES [facility] [address] [phone] * (ABNORMAL) EPOC COMPLETE ART - POCT (09/05/2017 10:07 AM CDT) Only the most recent of2 resultswithin the time period is included. EPOC pH POCT 7.403 7.350 - 7.450 [facility] (BEAKER) EPOC PCO2 POCT 46.7(H) 35.0 - 45.0 mmHg [facility] (BEAKER) EPOC PO2 POCT 276.8(H) 83.0 - 108.0 mmHg [facility] (BEAKER) EPOC HCO3 POCT 29.1(H) 22.0 - 26.0 mmol/L [facility] (BEAKER) EPOC TCO2 POCT 30.5(H) 25.0 - 29.0 mmol/L [facility] (BEAKER) EPOC Base Excess POCT 3.7(H) -2.0 - 2.0 mmol/L [facility] (BEAKER) EPOC Hemoglobin POCT 10.4(L) 13.5 - 17.5 g/dL [facility] (BEAKER) EPOC Hematocrit POCT 31(L) 39 - 50 % [facility] (BEAKER) EPOC SO2 POCT 99.9(H) 94.0 - 98.0 % [facility] (BEAKER) EPOC Ionized Calcium POCT 1.07(L) 1.19 - 1.34 mmol/L [facility] (BEAKER) EPOC Sodium POCT 143 138 - 146 mmol/L [facility] (BEAKER) EPOC Potassium POCT 4.9(H) 3.5 - 4.5 mmol/L [facility] (BEAKER) EPOC Chloride POCT 104 101 - 111 mmol/L [facility] (BEAKER) EPOC Glucose POCT 198(H) 74 - 100 mg/dL [facility] (BEAKER) EPOC Lactate POCT 1.95 0.50 - 3.40 mmol/L [facility] (BEAKER) Comment: Sample Type: Arterial Licensed Psychologist: DEJON ??TANJA 09/05/2017 10:0 7 AM CDT Zehra Boo MD LAB - POINT OF CARE ORDERABLES [facility] (BEAKER) * PREPARE CRYOPRECIPITATE UNIT (S) (09/05/2017 6:22 AM CDT) Unit Cryo [id number] transfused [facility] (BEAKER) Unit ABO A [facility] (BEAKER) Unit Rh NEG [facility] (BEAKER) Unit Number [id number] [facility] (BEAKER) Unit Status Transfused [facility] (BEAKER) Unit Cryo [id number] transfused [facility] (BEAKER) Unit ABO A [facility] (BEAKER) Unit Rh POS H BLOOD BANK PRODUCTS (BEAKER) Unit Number [id number] [facility] BLOOD BANK PRODUCTS (BEAKER) Unit Status Transfused [facility] BLO OD BANK PRODUCTS (BEAKER) 09/05/2017 6:22 AM CDT 09/05/2017 6:22 AM CDT Narrative [facility] BLOOD BANK PRODUCTS (BEAKER) - 09/05/2017 6:22 AM CDT # of Units->10 Zehra Boo MD LAB - BLOOD BANK ORD ERABLES Performing Organization Address [facility]/ZIP Co de Phone Number [facility] BLOOD BANK PRODUCTS (BEAKER) * PREPARE PLATELET PHERESIS UNIT(S) (09/05/2017 6:22 AM CDT) Irradiated Platelet [id number] returned [facility] BLOOD BANK PRODUCTS (BEAKER) 09/05/2017 6:22 AM CDT 09/05/2017 6:22 AM CDT Narrative [facility] BLOOD BANK PRODUCTS (BEAKER) - 09/05/2017 6:22 AM CDT # of Units->1 Zehra Boo MD LAB - BLOOD BANK ORD ERABLES [facility] BLOOD BANK PRODUCTS (BEAKER) * PREPARE FFP UNIT(S) (09/05/2017 6:22 AM CDT) Unit FFP [id number] transfused [facility] BLOOD BANK PRODUCTS (BEAKER) Unit ABO AB [facility] BLOOD BANK PRODUCTS (BEAKER) Unit Rh POS [facility] BLOOD BANK PRODUCTS (BEAKER) Unit Number [id number] [facility] BLOOD BANK PRODUCTS (BEAKER) Unit Status Transfused [facility] BLO OD BANK PRODUCTS (BEAKER) Unit FFP [id number] transfused [facility] BLOOD BANK PRODUCTS (BEAKER) Unit ABO AB H BLOOD BANK PRODUCTS (BEAKER) Unit Rh NEG H BLOOD BANK PRODUCTS (BEAKER) Unit Number [id number] [facility] BLOOD BANK PRODUCTS (BEAKER) Unit Status Transfused [facility] BLO OD BANK PRODUCTS (BEAKER) 09/05/2017 6:22 AM CDT 09/05/2017 6:22 AM CDT Narrative [facility] BLOOD BANK PRODUCTS (BEAKER) - 09/05/2017 6:22 AM CDT # of Units->2 Zehra Boo MD LAB - BLOOD BANK ORD ERABLES [facility] BLOOD BANK PRODUCTS (BEAKER) * ECHO ANALISA TRANSESOPHAGEAL (09/05/2017 12:00 AM CDT) Anatomical Region Laterality Modality Other 09/05/2017 Heidy Acuña PA-C ECHOCARDIOGRAPHY RA DIANT * COMPLETE PFT W/WO BRONCHODILATOR (08/27/2017) Impressions [facility] RADIOLOGY - 08/27/2017 12:00 AM CDT [facility] DEPARTMENT OF PULMONARY, CRITICAL CARE, AND SLEEP MEDICINE PULMONARY FUNCTION TESTS Eduardo Nielsen 72 y.o. BMI 35.2 08/27/2017 INTERPRETATION Please see technologist's comments mentioned above. SPIROMETRY: ??FEV1/FVC ratio is decreased . ? FEV1 is decreased. ? Forced vital capacity is decreased. There is a significant response to bronchodilator administration. Inspection of the patient's flow-volume loops shows a scooped appearance of the expiratory limb. LUNG VOLUMES: Lung volumes by body plethysmography show a normal TLC and increased RV DLCO: Diffusing capacity adjusted for Hb is within normal limits. AIRWAY RESISTANCE: There is increase in airway resistance and decrease in specific conductance. IMPRESSION: 1. Moderate obstructive ventilatory limitation 2. There is a significant response to bronchodilator 3. Air trapping without hyperinflation 4. Normal DLCO. There is no previous study available for comparison. Catracho Taylor MD (Fellow) Division of Pulmonary, Critical Care, & Sleep Medicine [facility] ATTENDING PHYSICIAN TOMEKA/MARCELINO BOONE M.D.: I have personally reviewed and interpreted the above test and I have made the necessary changes if needed to the above interpretation. ?? Narrative Procedure Note Provider, MD Terry - 11/22/2017 IMPRESSION [facility] DEPARTMENT OF PULMONARY, CRITICAL CARE, AND SLEEP MEDICINE PULMONARY FUNCTION TESTS Eduardo D Furfaro 72 y.o. BMI 35.2 08/27/2017 INTERPRETATION Please see technologist's comments mentioned above. SPIROMETRY: FEV1/FVC ratio is decreased . FEV1 is decreased. Forced vital capacity is decreased. There is a significant response to bronchodilator administration. Inspection of the patient's flow-volume loops shows a scooped appearanceof the expiratory limb. LUNG VOLUMES: Lung volumes by body plethysmography show a normal TLC andincreased RV DLCO: Diffusing capacity adjusted for Hb is within normal limits. AIRWAY RESISTANCE: There is increase in airway resistance and decrease inspecific conductance. IMPRESSION: 1. Moderate obstructive ventilatory limitation 2. There is a significant response to bronchodilator 3. Air trapping without hyperinflation 4. Normal DLCO. There is no previous study available for comparison. Catracho Taylor MD (Fellow) Division of Pulmonary, Critical Care, & Sleep Medicine [facility] ATTENDING PHYSICIAN TOMEKA/MARCELINO BOONE M.D.: I have personallyreviewed and interpreted the above test and I have made the necessarychanges if needed to the above interpretation. Zehra Boo MD RESPIRATORY THERAPY ORDERABLES [facility] RAD[facility] * VAS CAROTID DUPLEX BILATERAL (08/26/2017 1:27 PM CDT) Anatomical Region Laterality Modality Other Zehra Boo MD VASCULAR LAB ORDERAB LES * XR CHEST 2VW (08/26/2017 9:19 AM CDT) Anatomical Region Laterality Modality Chest Other Impressions 08/27/2017 12:34 PM CDT IMPRESSION: There is no focal consolidation, pleural effusion, or pneumothorax. The cardiac silhouette is normal. The aorta is atherosclerotic and tortuous. Degenerative changes are noted in the thoracic spine. Report dictated by Arnaldo De Anda M.D. (resident service coordinator). Dr. BRIANNE Patel have personally reviewed and interpreted this examination/study. This report was electronically signed by BRIANNE EDWARDS ??on 08/26/2017 4:54 PM . Narrative 08/27/2017 12:34 PM CDT EXAMINATION: XR CHEST PA AND LATERAL HISTORY: Preoperative evaluation COMPARISON: No prior study is available for comparison. FINDINGS/ Procedure Note Brianne Edwards DO - 09/18/2017 EXAMINATION: XR CHEST PA AND LATERAL HISTORY: Preoperative evaluation COMPARISON: No prior study is available for comparison. FINDINGS/ IMPRESSION IMPRESSION: There is no focal consolidation, pleural effusion, or pneumothorax. Thecardiac silhouette is normal. The aorta is atherosclerotic and tortuous.Degenerative changes are noted in the thoracic spine. Report dictated by Arnaldo De Anda M.D. (resident service coordinator). Dr. BRIANNE Patel have personally reviewed and interpreted thisexamination/study. This report was electronically signed by BRIANNE EDWARDS on 08/26/20174:54 PM . Zehra Boo MD DIAGNOSTIC IMAGING O RDERABLES Care Teams Refueling Rampman Relationship Specialty Start Date End Date Maureen Stephens MD [address] [place] [id number] PCP - General 08/27/17
== END 2024-07-08 08:50 | disposition home or self-care (01) ==
LOC: ANHGOSHLAB 08:50
PROVIDERS: PCP Family Medicine; Visit Provider Family Medicine
DX: E55.9 Vitamin D deficiency, unspecified (principal); E11.9 Type 2 diabetes mellitus without complications; I48.0 Paroxysmal atrial fibrillation; E78.5 Hyperlipidemia, unspecified; E53.8 Deficiency of other specified B group vitamins; I10 Essential (primary) hypertension; Z12.5 Encounter for screening for malignant neoplasm of prostate; Z85.528 Personal history of other malignant neoplasm of kidney
CPT/HCPCS: 36415; 80053; 80061; 81003; 82043; 82306; 82607; 83036; 84153; 84443; 85025; G0103

== ENCOUNTER 2024-12-29 09:46 | Outpatient (CLI) | payer MEDICARE, OTHER, SELFPAY ==
--- OUTSIDE RECORDS SUMMARY | 2024-12-29 10:00 | XMS_ITS | Clinical Summary ---
Author Organization [facility] Address [address] [place] [id number] Care Team Providers Care Livestock Auctioneer Name Role Phone Unavailable Primary Care Provider [...] Td Vaccines ( 1 - Tdap) 1966 Pneumococcal Vaccine: 50+ Ye ars (1 of 1 - PCV) 1997 Zoster Vaccines (1 of 2) 1997 RSV Immunization or 60+ Years (1 - 1-dose 75+ series) 2022 COVID-19 Vaccine ( - 2023-2 5 season) 2024 Meningococcal B Vaccine Aged Out No l onger eligible based on patient's age to complete this topic Meningococcal Vaccine Aged Out No shiva zan eligible based on patient's age to complete this topic RSV Immunizations Under 20 Months Aged Out No longer eligible based on patient's age to complete this topic
--- OUTSIDE RECORDS SUMMARY | 2024-12-29 10:00 | XMS_ITS | Encounter Summary ---
Author Organization [facility] Address [address] [place] [address] Care Team Providers Care Semiconductor Development Technician Name Role Phone Unavailable Primary Care Provider Unavailabl e Encounter Details Date Type Department Care Team (Late st Contact Info) Description 05/23/2017 Abstract [facility] CONVERSION [address] [place] [address] , Generic Conversion, Social History Tobacco Use [...]
--- OUTSIDE RECORDS SUMMARY | 2024-12-29 10:00 | XMS_ITS | Clinical Summary ---
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
--- OUTSIDE RECORDS SUMMARY | 2024-12-29 10:00 | XMS_ITS ---
Author Name Auto Generated, Auto Generated Organization [facility] ices Address [address] [place] [address] Phone [phone] Care Team Providers Care Remedy Developer Name Role Phone Zehra Boo Unavailable [phone] Maureen Stephens Unavailable Functional Status Mental Status Allergies and Intolerances Problems No Known Problems Reason for Referral
--- OUTSIDE RECORDS SUMMARY | 2024-12-29 10:00 | XMS_ITS | Clinical Summary ---
Author Organization [facility] Address [address] [place] [address] Care Team Providers Care Animal Trainer Name Role Phone Maureen Stephens MD Primary Care Provider Source Comments [facility],non-owned Affiliates and Associated Physician Practices is amultiple site organization consisting of ambulatory clinics and hospital sitesin [place], [place], [place] and [place]. This disclosure is being madepursuant to the Care Everywhere program and may not contain all information available regarding this patient. Last updated 18.[facility] Allergies Active Allergy Reactions Criticality Noted Date Comments Latex Swelling Low 08/26/2017 After dental procedure which only included x-rays next morning swelling around face and jaw with lips extremely swollen. Medications * Be aware that medications may not be up to date on this document. Alwaysverify current medications with the patient. albuterol HFA (PROVENTIL;SIDNEY TOLIN;PROAIR) 108 (90 BASE) MCG/ACT inhaler Inhale 2 [...] mouth once daily For 30 days Active budesonide-for moterol (SYMBICORT) 160-4.5 MCG/ACT inhaler Inhale 2 puffs [...] mg by mouth 2 times daily Active oxyCODONE-acet aminophen (PERCOCET) 5-325 MG tablet Take 1 tablet by mouth every 4 hours as needed for Pain Active polyethylene glycol 3350 (MIRALAX) packet Take 17 g by mouth once daily Active potassium chloride (KLOR-CON M) 10 MEQ tablet Take 10 mEq by mouth once daily 8 Active warfarin (COUMADIN) 2.5 MG tablet Take 5 mg by mouth once daily Active metoprolol tartrate (LOPRESSOR) 25 MG tablet Take 25 mg by mouth BID. 60 tablet 3 8 Active metoclopramide (REGLAN) 5 MG tablet Take 5 mg by mouth BID PRN. 120 tablet 0 8 Active furosemide (LASIX) 20 MG tablet Take 20 mg by mouth QDAY PRN. 8 Active amiodarone (CORDARONE) 200 MG tablet Take 200 mg by mouth DAILY. 30 tablet 3 8 Active aspirin EC (ECOTRIN) 325 MG tablet Take 650 mg by mouth q8h. 100 tablet 2 8 Active aspirin (ASPIRIN) 81 MG tablet Take 81 mg by mouth DAILY. 100 tablet 3 8 Active Docusate Sodium (DSS) 100 MG Take 100 mg by mouth DAILY. 60 capsule 0 8 Active polyethylene glycol 3350 (MIRALAX) packet Take 17 g by mouth DAILY. 30 packet 0 8 Active oxyCODONE-acet aminophen (PERCOCET) 5-325 MG tablet Take 1 tablet by mouth q4h PRN. 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 Gender Identity Not on file Sexual Orientation Not on file Last Filed Vital Signs Vital Sign Reading Time Taken Comments Blood Pressure 120/68 10/02/2017 9:35 AM CDT Pulse 67 10/02/2017 9:35 AM CDT Temperature 36.5 C (97.7 F) 09/20/2017 12:00 PM CDT Respiratory Rate 17 09/20/2017 1:00 PM CDT Oxygen Saturation 97% 10/02/2017 9:35 AM CDT Inhaled Oxygen Concentration - - Weight 93.9 kg (207 lb) 10/02/2017 9:35 AM CDT Height 167.6 cm (5' 6) 10/02/2017 9:35 AM CDT Body Mass Index 33.41 10/02/2017 9:35 AM CDT Plan of Treatment Health Maintenance Due Date Last Done Comments HEPATITIS C SCREENING 07[birth year]06/1963 DTAP/TDAP/TD VACCINES (1 - Tdap) 1966 PNEUMOCOCCAL VACCINE 50+ (1 of 1 - PCV) 1997 ZOSTER VACCINE (1 of 2) 1997 SCREENING FOR DIABETES 09/20/2020 8, 09/19/2017, 09/18/2017, Additional history exists Respiratory Syncytial Virus (RSV) Vaccine Pt: or over 60 yrs (1 - 1-dose 75+ series) 2022 COVID-19 VACCINE ( - season) 2024 DEPRESSION SCREENING 06/17/2024 INFLUENZA VACCINE (#1) 2025 HEPATITIS B VACCINE Aged Out No longe r eligible based on patient's age to complete this topic HIB VACCINE Aged Out No longer eligi ble based on patient's age to complete this topic HPV VACCINE Aged Out No longer eligi ble based on patient's age to complete this topic MENINGOCOCCAL (Group B) VACCINE SHARED DECISION-MAKING Aged Out No longer eligible based on patient's age to complete this topic MENINGOCOCCAL GROUPS A/C/Y/W VACCINE Aged Out No longer eligible based on patient's age to complete this topic Procedures Procedure Name Priority Date/Time Associated Diagnosis Comments BASIC METABOLIC PANEL (CALCIUM TOTAL) Routine 09/20/2017 1:44 AM CDT from Last 3 Months or Most Recently Relevant to Health Maintenance Results * (ABNORMAL) BASIC METABOLIC PANEL (CALCIUM TOTAL) (09/20/2017 1:44 AM CDT) BUN 18 7 - 26 mg/dL [facility] Creatinine 1.0 0.6 - 1.2 mg/dL [facility] Sodium 137 136 - 145 mmol/L [facility] Potassium 4.5 3.5 - 4.5 mmol/L [facility] Chloride 104 98 - 107 mmol/L [facility] CO2 23 22 - 29 mmol/L [facility] Glucose 123(H) 70 - 115 mg/dL [facility] Calcium 8.1(L) 8.4 - 10.2 mg/dL [facility] Anion Gap 15 8 - 18 [facility] BUN/Creatinine Ratio 18 7 - 23 [facility] Osmolality Calculated 287 270 - 300 mOsm/kg [facility] eGFR >60 >60 mL/min/1.7 3 m2 [facility] Blood specimen (specimen) BLOOD SPECIMEN / Unknown 09/20/2017 1:44 AM CDT 09/20/2017 1:48 AM CDT us Luis Kat MD LAB - CHEMISTRY ORDERABLES Fin al Result [address] [phone] from Last 3 Months or Most Recently Relevant to Health Maintenance [place] [address] MEDIC[place] [phone] MEDICARE [place] Advance Directives * Full Code (Latest Code Status on File) Date Activated Date Inactivated Comments 09/20/2017 11:00 AM 09/20/2017 5:11 PM * Full Code Date Activated Date Inactivated Comments 09/20/2017 11:00 AM 09/20/2017 11:00 AM Care Teams Animal Trainer Relationship Specialty Start Date End Date Maureen Stephens MD [address] [place] [address] PCP - General 08/27/17
--- OUTSIDE RECORDS SUMMARY | 2024-12-29 10:00 | XMS_ITS ---
Author Name Auto Generated, Auto Generated Organization [facility] ices Address [address] [place] [address] Phone [phone] Care Team Providers Care Manager Retention Name Role Phone EmaZehra miramontes Unavailable [phone] Maureen Stephens Unavailable Functional Status No Results Mental Status No Results Allergies and Intolerances Name Onset Date Reaction Severity Latex (Allergy) SatSep 09 12:40:00 EDT 2018 Problems No Known Problems Reason for Referral
--- OUTSIDE RECORDS SUMMARY | 2024-12-29 10:00 | XMS_ITS | Continuity of Care Document ---
Author Name [facility] Organization [facility] Care Team Providers Care Wide Area Network Administrator Name Role Phone [facility] Unavailable Unavailable Problems Combined list of problems from Department of [facility] and [facility] facilities. It does not include entries that were removed or entered in error. Problem Status Onset Date Problem Type Date of Resolution Comments Source AF- Atrial Fibrillation ([facility] [id number]) Active Condition [facility] Allergic Rhinitis ([facility] 02483934) Active Condition [facility] Asthma ([facility] [id number]) Active Condition [facility] Bicuspid aortic valve Active Condition [facility] CAD - Coronary Artery Disease ([facility] [id number]) Active Condition [facility] Diabetes mellitus Active Condition [facility] Dupuytren contracture Active Condition [facility] Exposure to potentially hazardous substance ([facility] [id number]) Active Condition Oct 01 Entered By: SILAS HALL Comment: Entered automatically through RANDEE Problem List documentation program [facility] G[facility] - Gastro-Esophageal Reflux Disease ([facility] [id number]) Active Condition [facility] Hearing Loss ([facility] 45829592) Active Condition [facility] History of colonic polyp Active Condition [facility] History of heart failure Active Condition [facility] HTN - Hypertension ([facility] 92412429) Active Condition [facility] OA - Osteoarthritis ([facility] [id number]) Active Condition [facility] Obesity ([facility] 807981654) Active Condition [facility] Obstructive Sleep Apnea Syndrome ([facility] 89723574) Active Condition [facility] Past history of procedure Active Condition Dec 22, 2020 Entered By: CARLA BRENNAN Comment: 09/05/17 aortic valve replacement (25 mm magna ease bioprosthetic aortic valve) and maze procedureJul 14, 2021 Entered By: CARLA BRENNAN Comment: left achilles tendon surgeryJul 2020 Entered By: CARLA BRENNAN Comment: 2013 4th right finger tigger releaseJul 2020 Entered By: CARLA BRENNAN Comment: 2012 partial right nephrectomyJul 2020 Entered By: CARLA BRENNAN Comment: 2016 right cataract eye surgery [facility] Prosthetic heart valve in situ Active Condition [facility] Pulmonary hypertension Active Condition [facility] Renal cell carcinoma Active Condition [facility] Diagnosis: ICD-10-CM Z46.1 Encounter for fitting and adjustment of hearing aid Active Diagnosis [facility] Diagnosis: ICD-10-CM H90.3 Sensorineural hearing loss, bilateral Active Diagnosis [facility] Diagnosis: ICD-10-CM J45.909 Unspecified asthma, uncomplicated Active Diagnosis [facility] Diagnosis: ICD-10-CM H91.93 Unspecified hearing loss, bilateral Active Diagnosis [facility] Medications Combined list of outpatient medications from Department of Defense and [facility] Affairs facilities.Medications provided include 1) outpatient medications from the last 15 months, and 2) patient-reported medications. Medication Details Route Status Patient Instructions Prescription Expires Prescription Number Last Dispense Date Ordering Provider Order Date Order Qty Source ALBUTEROL SO4 90MCG/ACTUA T (CFC-F) INHL,ORAL,8 .5GM INHALE 2 PUFFS BY ORAL INHALATI ON FOUR TIMES A DAY NEEDED FOR COPD SHAKE WELL. RINSE MOUTHPIE CE FREQUENT LY TO PREVENT CLOGGING . RESPIR ATORY (INHAL ATION) ACTIVE 10/07/2025 [id number] LORE MEZA 2024 3 [facility] ASPIRIN 81MG TAB,CHEWABL E CHEW AND SWALLOW ONE TABLET BY MOUTH ONCE A DAY FOR CARDIOVA SCULAR DISEASE (TAKE WITH FOOD) ORAL ACTIVE 02/13/2025 [id number] 5 LORE MEZA 2023 90 [facility] ASPIRIN 81MG TAB,EC TAKE ONE TABLET BY MOUTH ONCE A DAY FOR HEART OR CIRCULAT ION. TAKE WITH FOOD. ORAL 01/15/2024 [id number] 4 SHAH,ME TTISA 2022 120 [facility] ATORVASTATI N CA 40MG TAB TAKE ONE-HALF TABLET BY MOUTH EVERY EVENING FOR HIGH CHOLESTE ROL ORAL ACTIVE 02/13/2025 [id number] 5 LORE MEZA 2023 45 [facility] ATORVASTATI N CA 40MG TAB TAKE ONE-HALF TABLET BY MOUTH EVERY EVENING TO LOWER CHOLESTE ROL ORAL 01/15/2024 [id number] 4 SHAH,ME TTISA 2022 45 [facility] FLUTICASONE 250MCG/SALM ETEROL 50MCG INHL,ORAL,D ISKUS,60 INHALE 1 INHALATI ON BY ORAL INHALATI ON TWICE A DAY (OPEN DISKUS; CLICK ONLY ONCE; MAY INHALE TWICE TO COMPLETE DOSE; CLOSE WHEN FINISHED ) RINSE MOUTH AND SPIT AFTER EACH USE. RESPIR ATORY (INHAL ATION) ACTIVE 07/22/2025 [id number] 5 LORE MEZA 2024 3 [facility] HYDROCHLORO THIAZIDE 12.5MG/LOSA RTAN POTASSIUM 50MG TAB TAKE 1 TABLET BY MOUTH EVERY MORNING FOR HIGH BLOOD PRESSURE ORAL ACTIVE 10/07/2025 [id number] 5 PABLO,ME TTISA 2024 90 [facility] HYDROCHLORO THIAZIDE 12.5MG/LOSA RTAN POTASSIUM 50MG TAB TAKE 1 TABLET BY MOUTH EVERY MORNING FOR HIGH BLOOD PRESSURE ORAL DISCONT INUED 06/14/2024 [id number] SHAH,ME TTISA 2022 90 [facility] METFORMIN HCL 500MG 24HR TAB,SA TAKE TWO TABLETS BY MOUTH ONCE A DAY FOR DIABETES TAKE WITH FOOD. AVOID ALCOHOL. DISCONTI NUE BEFORE GETTING XRAY DYE. ORAL ACTIVE 08/07/2025 [id number] 5 SHAH,ME TTISA 2024 180 [facility] METFORMIN HCL 500MG 24HR TAB,SA TAKE TWO TABLETS BY MOUTH ONCE A DAY FOR DIABETES TAKE WITH FOOD. AVOID ALCOHOL. DISCONTI NUE BEFORE GETTING XRAY DYE. ORAL DISCONT INUED 06/02/2025 [id number] 5 SHAH,ME TTISA 2023 60 [facility] METFORMIN HCL 500MG 24HR TAB,SA TAKE TWO TABLETS BY MOUTH ONCE A DAY FOR DIABETES TAKE WITH FOOD. AVOID ALCOHOL. DISCONTI NUE BEFORE GETTING XRAY DYE. ORAL DISCONT INUED 03/11/2025 [id number] 4 SHAH,ME TTISA 2023 60 [facility] METFORMIN HCL 500MG 24HR TAB,SA TAKE TWO TABLETS BY MOUTH ONCE A DAY FOR DIABETES TAKE WITH FOOD. AVOID ALCOHOL. DISCONTI NUE BEFORE GETTING XRAY DYE. ORAL DISCONT INUED 11/25/2024 [id number] 4 SHAH,ME TTISA 2023 60 [facility] METFORMIN HCL 500MG 24HR TAB,SA TAKE ONE TABLET BY MOUTH ONCE A DAY FOR BLOOD SUGAR CONTROL. TAKE WITH FOOD. AVOID ALCOHOL. DISCONTI NUE BEFORE GETTING XRAY DYE. ORAL DISCONT INUED (EDIT) 01/15/2024 [id number] 4 SHAH,ME TTISA 2022 90 [facility] METOPROLOL TARTRATE 50MG TAB TAKE ONE-HALF TABLET BY MOUTH TWICE A DAY FOR HEART/BL OOD PRESSURE . TAKE WITH OR IMMEDIAT CRISPIN FOLLOWIN G FOOD. ORAL ACTIVE 02/13/2025 [id number] 5 SHAH,ME TTISA 2023 90 [facility] METOPROLOL TARTRATE 50MG TAB TAKE ONE-HALF TABLET BY MOUTH TWICE A DAY FOR HEART/BL OOD PRESSURE . TAKE WITH OR IMMEDIAT CRISPIN FOLLOWIN G FOOD. ORAL DISCONT INUED 01/15/2024 [id number] 4 SHAH,ME TTISA 2022 90 [facility] Allergies, Adverse Reactions, Alerts Combined list of allergies from Department of Defense and Veterans Affairs facilities. It does not include entries that were removed or entered in error. Substance Category Reaction Severity Reaction type Status Date Reported Comments Source POLLEN Propensity to adverse reaction (finding) Dyspnea active 12/28/2020 [facility] Immunizations Combined list of available immunizations from the Department of [facility] and Veterans Affairs facilities. Immunization Series Date Given Administered By Site Reaction Lot Number CVX Code Drug Grinding Wheel Facer Status Comments Source INFLUENZA, HIGH-DOSE, QUADRIVALENT, PF 1 2022 197 complet ed HISTORICA L INFORMATI ON - FROM OTHER [facility], [facility] 2021 115 complet ed [facility] ZOSTER RECOMBINANT 2 2021 187 complet ed [facility] INFLUENZA, HIGH-DOSE, QUADRIVALENT, PF 1 2021 197 complet ed HISTORICA L INFORMATI ON - FROM OTHER REGISTRY, [facility] N INFLUENZA, UNSPECIFIED FORMULATION 2021 88 complet ed HISTORICA L INFORMATI ON - FROM PATIENT'S RECALL, [facility] COVID-19 (MODERNA), MRNA, LNP-S, PF, 100 MCG/0.5ML DOSE OR 50 MCG/0.25ML DOSE 4 2021 NONE 207 complet ed MOD; [id number]; 2 [facility] ZOSTER RECOMBINANT 1 2021 NONE 187 complet ed [facility] PNEUMOCOCCAL CONJUGATE PCV20, POLYSACCHARID E [id number] CONJUGATE, ADJUVANT, PF 1 2021 216 complet ed HISTORICA L INFORMATI ON - FROM OTHER [facility], [facility] COVID-19 (MODERNA), MRNA, LNP-S, PF, 100 MCG OR 50 MCG DOSE 2020 207 complet ed Booster for Series, [facility] INFLUENZA, HIGH-DOSE, QUADRIVALENT, PF 1 2020 197 complet ed HISTORICA L INFORMATI ON - FROM OTHER REGISTRY, [facility] INFLUENZA, UNSPECIFIED FORMULATION 2020 88 complet ed [facility] COVID-19 (MODERNA), MRNA, LNP-S, PF, 100 MCG/0.5 ML DOSE 2 2020 207 complet ed [facility] COVID-19 (MODERNA), MRNA, LNP-S, PF, 100 MCG/0.5 ML DOSE 1 2020 207 complet ed [facility] INFLUENZA, UNSPECIFIED FORMULATION 2019 88 complet ed [facility] INFLUENZA, HIGH-DOSE, QUADRIVALENT, PF 1 2019 197 complet ed HISTORICA L INFORMATI ON - FROM OTHER REGISTRY, [facility] INFLUENZA, HIGH-DOSE, TRIVALENT, PF 1 2018 135 complet ed HISTORICA L INFORMATI ON - FROM OTHER REGISTRY, [facility] N PNEUMOCOCCAL POLYSACCHARID E PPV23 2018 33 complet ed [facility] INFLUENZA, HIGH-DOSE, TRIVALENT, PF 1 2017 135 complet ed HISTORICA L INFORMATI ON - FROM OTHER REGISTRY, [facility] INFLUENZA, HIGH-DOSE, TRIVALENT, PF 1 2016 135 complet ed HISTORICA L INFORMATI ON - FROM OTHER REGISTRY, [facility] Results Combined list of recent chemistry, hematology [...] Jan 14, 2024 10:34 AM Reporting Lab: [facility] [address] [place] [phone] Performing Lab: [facility] [address] [facility] [address] [facility] BASIC METABOLIC PANEL UREA NITROGEN [MASS/VOLUME] IN SERUM OR PLASMA 21.9 mg/dL 9.0 - 25.0 01/13 Specimen Type: PLASMA Comment: No hemolysis noted. Ordering Provider: MET ALBERT SHAH Report Released Date/Time: Jan 14, 2024 10:34 AM Reporting Lab: [address] [address] Performing Lab: [address] [address] [facility] BASIC METABOLIC PANEL GLUCOSE [MASS/VOLUME] IN SERUM OR PLASMA 131 mg/dL 72 - 99 01/13 H Specimen Type: PLASMA Comment: No hemolysis noted. Ordering Provider: MET ALBERT SHAH Report Released Date/Time: Jan 14, 2024 10:34 AM Reporting Lab: [address] [address] Performing Lab: [address] [address] [facility] BASIC METABOLIC PANEL SODIUM [MOLES/VOLUME ] IN SERUM OR PLASMA 141 meq/L 136 - 145 01/13 Specimen Type: PLASMA Comment: No hemolysis noted. Ordering Provider: MET ALBERT SHAH Report Released Date/Time: Jan 14, 2024 10:34 AM Reporting Lab: [address] [address] Performing Lab: [address] [address] [facility] BASIC METABOLIC PANEL POTASSIUM [MOLES/VOLUME ] IN SERUM OR PLASMA 3.8 meq/L 3.5 - 5 01/13 Specimen Type: PLASMA Comment: No hemolysis noted. Ordering Provider: MET ALBERT SHAH Report Released Date/Time: Jan 14, 2024 10:34 AM Reporting Lab: [address] [address] Performing Lab: [place] [address] [facility] [address] [facility] BASIC METABOLIC PANEL CHLORIDE [MOLES/VOLUME ] IN SERUM OR PLASMA 106 meq/L 98 - 107 01/13 Specimen Type: PLASMA Comment: No hemolysis noted. Ordering Provider: MET ALBERT SHAH Report Released Date/Time: Jan 14, 2024 10:34 AM Reporting Lab: [address] [address] Performing Lab: [address] [address] [facility] BASIC METABOLIC PANEL CARBON DIOXIDE, TOTAL [MOLES/VOLUME ] IN SERUM OR PLASMA 24 meq/L 22 - 31 01/13 Specimen Type: PLASMA Comment: No hemolysis noted. Ordering Provider: MET ALBERT SHAH Report Released Date/Time: Jan 14, 2024 10:34 AM Reporting Lab: [address] [address] Performing Lab: [address] [address] [facility] BASIC METABOLIC PANEL CALCIUM [MASS/VOLUME] IN SERUM OR PLASMA 9.6 mg/dL 8.4 - 10.4 01/13 Specimen Type: PLASMA Comment: No hemolysis noted. Ordering Provider: MET ALBERT SHAH Report Released Date/Time: Jan 14, 2024 10:34 AM Reporting Lab: [address] [address] Performing Lab: [address] [address] [facility] BASIC METABOLIC PANEL GLOMERULAR FILTRATION RATE/1.73 SQ M.PREDICTED [VOLUME RATE/AREA] IN SERUM, PLASMA OR BLOOD BY CREATININE-BA SED FORMULA (CKD-EPI 2020) 56.9 60 01/13 Specimen Type: PLASMA Comment: No hemolysis noted. Ordering Provider: MET ALBERT SHAH Report Released Date/Time: Jan 14, 2024 10:34 AM Reporting Lab: [facility] [address] [facility] [address] Performing Lab: [facility] [address] [place] [address] [facility] HGA1C HEMOGLOBIN A1C/HEMOGLOBI N.TOTAL IN BLOOD 6.5 4.0 - 6.0 01/13 H Specimen Type: BLOOD No comment entered. Ordering Provider: MET ALBERT SHAH Report Released Date/Time: Jan 14, 2024 10:34 AM Reporting Lab: [facility] [address] [place] [phone] Performing Lab: [address] [address] [facility] LIPID PANEL (STL) CHOLESTEROL [MASS/VOLUME] IN SERUM OR PLASMA 141 mg/dL 0 - 200 01/13 Specimen Type: PLASMA Comment: No hemolysis noted. Ordering Provider: MET ALBERT SHAH Report Released Date/Time: Jan 14, 2024 10:34 AM Reporting Lab: [facility] [address] [place] [address] Performing Lab: [address] [address] [facility] LIPID PANEL (STL) TRIGLYCERIDE [MASS/VOLUME] IN SERUM OR PLASMA 139 mg/dL 0 - 150 01/13 Specimen Type: PLASMA Comment: No hemolysis noted. Ordering Provider: MET ALBERT SHAH Report Released Date/Time: Jan 14, 2024 10:34 AM Reporting Lab: [facility] [address] [place] [phone] Performing Lab: [facility] [address] [place] [address] [facility] LIPID PANEL (STL) CHOLESTEROL IN LDL [MASS/VOLUME] IN SERUM OR PLASMA BY CALCULATION 66 mg/dL 01/13 Specimen Type: PLASMA Comment: No hemolysis noted. Ordering Provider: MET ALBERT SHAH Report Released Date/Time: Jan 14, 2024 10:34 AM Reporting Lab: [facility] [address] [facility] [address] Performing Lab: [facility] [address] [place] [address] [facility] LIPID PANEL (STL) CHOLESTEROL IN HDL [MASS/VOLUME] IN SERUM OR PLASMA 47 mg/dL 40 01/13 Specimen Type: PLASMA Comment: No hemolysis noted. Ordering Provider: MET ALBERT SHAH Report Released Date/Time: Jan 14, 2024 10:34 AM Reporting Lab: [facility] [address] [place] [address] Performing Lab: [address] [address] [facility] GLUCOSE,BL OOD-poct (STL) GLUCOSE [MASS/VOLUME] IN BLOOD BY AUTOMATED TEST STRIP 126 mg/dL 72 - 99 01/14 H Specimen Type: BLOOD Comment: Test Performed by: [id number] Meter #: [id number] Ordering Provider: MET ALBERT SHAH Report Released Date/Time: Jan 14, 2023 04:17 PM Reporting Lab: [place] [id number] [facility] [address] Performing Lab: [place] [id number] [facility] [address] [facility] Vital Signs Combined list of inpatient and outpatient Vital Signs from Department of Defense and Veterans Affairs, ranging from 12 months to all on record, depending upon the facility. Vital Sign Value Date Comments Source SYSTOLIC BLOOD PRESSURE 125 01/14/2024 09:55:04 [facility] DIASTOLIC BLOOD PRESSURE 65 01/14/2024 09:55:04 [facility] PULSE OXIMETRY 96 01/14/2024 09:55:04 [facility] WEIGHT 233 01/14/2024 09:55:04 [facility] BMI 39 kg/m2 01/14/2024 09:55:04 [facility] PAIN 0 01/14/2024 09:55:04 [facility] HEIGHT 65 01/14/2024 09:55:04 [facility] TEMPERATURE 98 01/14/2024 09:55:04 Mathew BOYCE [facility] PULSE 43 01/14/2024 09:55:04 [facility] RESPIRATION 18 01/14/2024 09:55:04 [facility] Encounters Combined list of: 1) Encounters from Department of [facility] Affairs facilities going backup to the last 18 months, not all [place] inpatient encounters are included; 2) Encounters from the Department of [facility] facilities going backup to 280 months. Location Location Details Encounter Type Encounter Number Reason For Visit Attending Provider ADM Date DC Date Status Disposition Source [facility] HEARING AID REPAIR/MOD IFYING [id number] Diagnos is: ICD-10- CM H90.3 Sensori neural hearing loss, SUMAN Marcus 08/07 [facility] [place] [id number] Diagnos is: ICD-10- CM H91.93 Unspeci fied hearing loss, DEVEN Limon 10/06 [facility]AR[facility] SUP/ACCESS /DEV [id number] Diagnos is: ICD-10- CM H90.3 Sensori neural hearing loss, FAWN Dougherty 11/03 [facility] Outpatient Encounter [id number] SAUNDRA PURCELL 11/[address] [facility] OFFICE O/P EST MOD 30 MIN [id number] Diagnos is: ICD-10- CM J45.909 Unspeci fied asthma, uncompl icated SHAH,MET ALBERT 01/13 [facility] HEARING AID REPAIR/MOD IFYING [id number] Diagnos is: ICD-10- CM H90.3 Sensori neural hearing loss, julissa davis KOBEFAWN A 02/02 [facility] Outpatient Encounter [id number] 02/12 [facility] HEARING AID REPAIR/MOD IFYING [id number] Diagnos is: ICD-10- CM H90.3 Sensori neural hearing loss, julissa GRZEGORZ Hilton 06/16 [facility] Outpatient Encounter [id number] 07/21 [facility] Outpatient Encounter [id number] 10/05 [facility] HEARING AID CHECK [place] [id number] Diagnos is: ICD-10- CM Z46.1 Encount er for fitting and adjustm ent of hearing aid DEVEN GARCIA 10/29 [facility] Outpatient Encounter [id number] 11/04 [facility] HEARING AID CHECK [place] [id number] Diagnos is: ICD-10- CM Z46.1 Encount er for fitting and adjustm ent of hearing aid DEVEN GARCIA 12/17 [facility] Social History Combined list of available smoking, tobacco, and other social history from Department of Defense and Veterans Affairs facilities. Social History Type Response Date Comment Sourc e Tobacco smoking status NHIS [facility] FORMER USER 01/14/2024 [facility] History of tobacco use VA-TOBACCO QUIT 1 5 YRS OR MORE 01/14/2024 [facility] History of tobacco use [facility]ACCO FORMER USER 01/11/2023 [facility] History of tobacco use VA-TOBACCO FORMER USER 01/12/2022 [facility] History of tobacco use [facility]BACCO FORMER USER 12/28/2020 [facility] Plan of Care List of future care activities from Department of Veterans Affairs facilities. Additional future care activities may be listed in the Assessment and Plan section. Date/Time Care Activity Care Activity Detail Esme rai 01/14/2025 AMBULATORY - NONE AMBULATORY - NONE [facility]
--- OUTSIDE RECORDS SUMMARY | 2024-12-29 10:00 | XMS_ITS | Encounter Summary ---
Author Organization [facility] Address [address] [place] [address] Care Team Providers Care Motel Operator Name Role Phone Unavailable Primary Care Provider Unavailabl e Encounter Details Date Type Department Care Team (Late st Contact Info) Description 03/03/2008 Outpatient Historical [facility] Stas Christine MD [address] [facility] [address] [place] [address] Personal History of Colonic Polyps Social History Tobacco Use Types Packs/Day Years Used Date Smoking Tobacco: Never Assessed Sex and Gender Information Value Date Recorded Sex Assigned at Not on file Legal Sex Male 5:38 AM [employer] Gender Identity Not on file Sexual Orientation Not on file documented as of this encounter Plan of Treatment Not on file documented as of this encounter Procedures Procedure Name Priority Date/Time Associated Diagnosis Comments PATHOLOGY Routine 03/03/2008 1:20 PM CDT documented in this encounter Results * PATHOLOGY (03/03/2008 1:20 PM CDT) FINAL REPORT [address] [address] Patient: RUTH WHIPPLE : 1945 Procedure Date: 03/03/2008 Accession Date: 03/03/2008 Case No: [id number] Ordering Dr: STAS CHRISTINE Case types AW, BW, FW, NW and SH are performed by [facility], [place], [place] SURGICAL PATHOLOGY & NON-GYNECOLOGIC CYTOPATHOLOGY REPORT DIAGNOSIS LARGE INTESTINE, SIGMOID, BIOPSY: - FOCAL HYPERPLASTIC CHANGE. Specimen Description: Sigmoid colon polyp. Operative Procedure: Colonoscopy. Patient Information/Histo ry/Diagnosis: Colon polyp(s). Adenomatous vs. hyperplastic vs. other. Gross: Received iN a single container labeled Ruthhoda Gutierrezo, sigmoid colon is a 0.2 cm piece of pate tissue that is submitted in A1. [facility] 03.04.2008 07:55 am Microscopic: The slides are labeled [id number], Ruth Whipple. The biopsy consists of a single piece of colonic mucosa containing a small lymphoid aggregate. There is focal hyperplastic change. No Adenomatous epithelium is seen on multiple levels. [facility]/DR 03.04.2008 10:45 am Staging Form: No. ELECTRONIC SIGNATURE FOR JACOB MONCADA M.D.- 03/04/08 02:07 pm INTERFACE SYSTEM 03/03/2008 1:20 PM CDT us Stas Christine MD PATHOLOGY/CYTOLOGY ORDERABL ES Final Result INTERFACE SYSTEM Refer to clinic/hospital department documented in this encounter Visit Diagnoses Diagnosis Personal history of colonic polyps documented in this encounter
[2024-12-29 15:04] LABS: Alanine Aminotransferase 24 U/L (6-50); Albumin Level 4.5 g/dL (3.5-5.1); Alkaline Phosphatase 46 U/L (38-126); Anion Gap 9 mmol/L (4-12); Aspartate Amino Transferase 56 U/L (17-59); Bilirubin,Total 0.7 mg/dL (0.2-1.3); Blood Urea Nitrogen 24 mg/dL (9-20); Calcium 9.5 mg/dL (8.4-10.2); Carbon Dioxide 29 mmol/L (22-30); Chloride 102 mmol/L (98-107); Estimated Glomerular Filt Rate > 60; Glucose 117 mg/dL (65-110); Sodium 140 mmol/L (137-145); Total Protein 7.5 g/dL (6.3-8.2)
[2024-12-29 15:14] LABS: Potassium 4.3 mmol/L (3.4-5.0)
[2024-12-29 15:56] LABS: Hemoglobin A1C 6.4 % (<5.7)
== END 2024-12-29 09:47 | disposition home or self-care (01) ==
LOC: ANHGOSHLAB 09:47
PROVIDERS: PCP Family Medicine; Visit Provider Family Medicine
DX: E11.9 Type 2 diabetes mellitus without complications (principal); I10 Essential (primary) hypertension
CPT/HCPCS: 36415; 80053; 83036